=== PATIENT | male | born 1950 | race Caucasian/White ===

== ENCOUNTER 2020-06-27 06:59 | Day surgery (SDC) | payer OTHER, SELFPAY ==
[2020-06-21 10:14] VITALS: BMI 34.0
--- NOTE | 2020-06-24 09:29 | HO.ANESPROP2 ---
Documented by User: Nandini Christy 06/24/20 09:30 HPI - Anesthesia Eval Consult details Narrative: 70yo [facility] Past Medical History Medical History Elevated cholesterol History of BPH HTN (hypertension) Hx of schizophrenia Thyroid disease Surgical History Surgical History H/O colonoscopy Social History Social History Smoking Status: Current every day smoker Packs Per Day: 1 Cigarettes Per Day: 20.0 Smoked in Last 30 Days: Yes Use of substances other than those prescribed or required for medical reasons: No Advance Directives Information Provided: No Meds Allergies Allergy/AdvReac Type Severity Reaction Status Date / Time No Known Allergies Allergy Verified 06/21/20 10:18 Home Medications Medication Instructions Recorded Confirmed Last Taken Type cyanocobalamin (vitamin B-12) 500 mcg PO DAILY 06/21/20 06/21/20 Unknown History [Vitamin B-12] finasteride 5 mg PO DAILY 06/21/20 06/21/20 Unknown History levothyroxine [Synthroid] 88 mcg PO DAILY 06/21/20 06/21/20 06/27/20 02:00 History lisinopril 20 mg PO DAILY 06/21/20 06/21/20 Unknown History losartan 50 mg PO DAILY 06/21/20 06/21/20 Unknown History melatonin 5 mg PO BEDTIME 06/21/20 06/21/20 Unknown History mirtazapine 30 mg PO BEDTIME 06/21/20 06/21/20 Unknown History risperidone 4 mg PO BEDTIME 06/21/20 06/21/20 Unknown History simvastatin 80 mg PO BEDTIME 06/21/20 06/21/20 Unknown History tamsulosin 0.4 mg PO BEDTIME 06/21/20 06/21/20 Unknown History Exam Exam Date and Time: June 24, [id number] Height,Weight and Vital Signs: Height 5 ft 4.5 in Weight 91.172 kg Assessment and Plan Assessment Anesthesia Assessment: Chart Reviewed Documented by User: Vinayak Centeno MD 06/27/20 08:32 [facility] Past Medical History Medical History Elevated cholesterol History of BPH HTN (hypertension) Hx of schizophrenia Thyroid disease Surgical History Surgical History H/O colonoscopy Social History Social History Smoking Status: Current every day smoker Packs Per Day: 1 Cigarettes Per Day: 20.0 Smoked in Last 30 Days: Yes Use of substances other than those prescribed or required for medical reasons: No Advance Directives Information Provided: No Meds Allergies Allergy/AdvReac Type Severity Reaction Status Date / Time No Known Allergies Allergy Verified 06/21/20 10:18 Home Medications Medication Instructions Recorded Confirmed Last Taken Type cyanocobalamin (vitamin B-12) 500 mcg PO DAILY 06/21/20 06/21/20 Unknown History [Vitamin B-12] finasteride 5 mg PO DAILY 06/21/20 06/21/20 Unknown History levothyroxine [Synthroid] 88 mcg PO DAILY 06/21/20 06/21/20 06/27/20 02:00 History lisinopril 20 mg PO DAILY 06/21/20 06/21/20 Unknown History losartan 50 mg PO DAILY 06/21/20 06/21/20 Unknown History melatonin 5 mg PO BEDTIME 06/21/20 06/21/20 Unknown History mirtazapine 30 mg PO BEDTIME 06/21/20 06/21/20 Unknown History risperidone 4 mg PO BEDTIME 06/21/20 06/21/20 Unknown History simvastatin 80 mg PO BEDTIME 06/21/20 06/21/20 Unknown History tamsulosin 0.4 mg PO BEDTIME 06/21/20 06/21/20 Unknown History Exam Airway Mallampati Class: III TM Dist: >3cm Neck ROM: Full Loose/Missing/Broken Teeth: Yes (Front right missing, multiple others missing; none lose per patient) Assessment and Plan Assessment Anesthesia Assessment: Anesthesia Plan Discussed and Chart Reviewed Final Anesthetic Review NPO: Yes ASA Class: III Final Preanesthetic Review: No Changes in Pt Med Stat, Meds/Allgs Chart Reviewed, Consent Obtained/Reviewed and Anes Risks/Benef Reviewed Patient Risk: Intermediate Procedure Risk: Low Anesthetic Plan Anesthetic Plan: MAC: and Other Disposition: Standard PACU
[2020-06-27 07:38] VITALS: BP 148/76; PULSE 77; RESP 16; TEMP 36.9; O2SAT 97
[2020-06-27] MEDS: Sodium Phosphate,Mono-Dibasic 133 ML ENEMA PR (08:07)
[2020-06-27] MEDS: Lactated Ringers 1,000 ML 100 ML IVCONT (08:08)
[2020-06-27 09:41] VITALS: BP 121/70; PULSE 58; RESP 18; TEMP 36.5; O2SAT 98
--- NOTE | 2020-06-27 09:43 | PM.OP ---
Brief Operative Note Date of Service: 06/27/20 Pre-op diagnosis: Screening Post-op diagnosis: other (Colon polyp) Procedure: Colonoscopy to cecum and TI with biopsy and removal of polyp Surgeon: Shravan Isaac Anesthesia: MAC Estimated blood loss (mL): 3.0 Pathology: other (A. Polyp at 20cm) Condition: stable Disposition: PACU
[2020-06-27 09:56] VITALS: BP 142/77; PULSE 65; RESP 16; TEMP 36.5; O2SAT 98
--- NOTE | 2020-06-27 10:02 | OP_ITS ---
SURGEON: Shravan Isaac MD INDICATIONS: The patient presents for evaluation of colorectal cancer screening and family history of colon cancer. Full consent has been obtained from him for this, including risks of bleeding and perforation. PREOPERATIVE DIAGNOSIS: POSTOPERATIVE DIAGNOSIS: PROCEDURE PERFORMED: Colonoscopy to the cecum and terminal ileum with biopsy and removal of polyp. ESTIMATED BLOOD LOSS: COMPLICATIONS: ANESTHESIA: Monitored anesthesia care. ASSISTANTS: SPECIMENS: PREOPERATIVE DIAGNOSES: Colorectal cancer screening and family history of colon cancer. POSTOPERATIVE DIAGNOSES: Colorectal cancer screening and family history of colon cancer, small colon polyp, diverticulosis and internal hemorrhoids. DESCRIPTION OF PROCEDURE: The patient was placed in the left lateral decubitus position. The digital rectal exam revealed no abnormalities. The Olympus video pediatric colonoscope was entered into the rectum and advanced to the cecum with the assistance of abdominal wall pressure. Once in the cecum, I did identify normal-appearing cecal pouch with appendiceal orifice and a normal-appearing ileocecal valve. The terminal ileum was cannulated and appeared normal. The scope was withdrawn back in the colon. The entire cecum and ileocecal valve appeared normal. The scope was slowly withdrawn assessing all mucosal surfaces carefully. Preparation was excellent. At 20 cm, was a flat approximately 3 mm polyp, which was biopsied and completely removed with cold biopsy forceps. I did not visualize any other polyps, colitis, nor angiodysplasia. There was a mild amount of sigmoid diverticulosis. In the rectum, scope was retroflexed visualizing internal hemorrhoids, but no other pathology. The rectal mucosa appeared normal. The scope was straightened out and withdrawn from the patient. He tolerated the procedure well and was returned to the recovery area in stable condition. IMPRESSION: 1. Small colon polyp, status post biopsy and removal. 2. Diverticulosis. 3. Internal hemorrhoids. PLAN: The results of the biopsy will be checked. I would recommend a repeat colonoscopy in 5 years for further screening given the family history of his father having had a colon cancer in his 60s. He will otherwise see me on a p.r.n. basis. MD FELICIANO Villa/SHADY / [phone]
== END 2020-06-27 10:42 | disposition home or self-care (01) ==
PROVIDERS: Visit Provider Internal Medicine
PROC: 0DJD8ZZ Inspection of Lower Intestinal Tract, Via Natural or Artificial Opening Endoscopic (ICD-10-PCS; CPT 45378; principal; 2020-06-27 08:30)
DX: Z12.11 Encounter for screening for malignant neoplasm of colon (principal); Z80.0 Family history of malignant neoplasm of digestive organs; K63.5 Polyp of colon; K57.30 Diverticulosis of large intestine without perforation or abscess without bleeding; K64.8 Other hemorrhoids; I10 Essential (primary) hypertension; E03.9 Hypothyroidism, unspecified; F17.210 Nicotine dependence, cigarettes, uncomplicated; Z79.899 Other long term (current) drug therapy
CPT/HCPCS: 45380; 88305

== ENCOUNTER 2021-11-15 11:53 | Outpatient (REF) | payer MEDICARE, SELFPAY ==
--- NOTE | ~2021-11-15 | XR_ITS ---
EXAMINATION: XR CHEST CLINICAL INFORMATION: COPD, weight loss. COMPARISON: None TECHNIQUE: 2 views of the chest were obtained. FINDINGS: Mild rotation on frontal view. There is mild hyperinflation. Lungs are clear. There is no airspace consolidation or ground-glass opacity or effusion. The costophrenic sulci are well-defined. Heart size normal. Vascularity normal. The hilar and mediastinal contours are normal. No visible acute bony abnormality. XR/XR chest 2V IMPRESSION: Mild hyperinflation. Lungs clear.
[2021-11-15 13:18] LABS: Free T4 (Free Thyroxine) 1.29 ng/dL (0.71-1.85); Prostate Specific Antigen 0.13 ng/mL (<0.05-4.0); Thyroid Stimulating Hormone 0.13 uIU/mL (0.32-4.0)
== END 2021-11-15 11:54 | disposition home or self-care (01) ==
LOC: HO.LAB 11:53
PROVIDERS: PCP Internal Medicine; Visit Provider Internal Medicine
DX: Z12.5 Encounter for screening for malignant neoplasm of prostate (principal); E03.9 Hypothyroidism, unspecified; N40.0 Benign prostatic hyperplasia without lower urinary tract symptoms; E78.00 Pure hypercholesterolemia, unspecified; R63.4 Abnormal weight loss; Z72.0 Tobacco use
CPT/HCPCS: 36415; 71046; 84153; 84439; 84443

== ENCOUNTER 2022-01-03 08:22 | Emergency (ER) | payer MEDICARE, SELFPAY ==
[2022-01-03 09:00] VITALS: BP 144/72; PULSE 80; RESP 13; TEMP 36.2; O2SAT 100; BMI 33.0
--- NOTE | 2022-01-03 09:16 | ED_ITS ---
HPI - Animal Bite General Chief Complaint: Animal Bite Stated Complaint: dog bite Time Seen by Provider: 01/03/22 09:09 Source: patient Mode of arrival: ambulatory Limitations: no limitations History of Present Illness HPI narrative: 71 yo male with hx of HTN, hypothyroidism, cognitive delay, schizophrenia comes in with dog bite R forearm from pit bull across the street that he cannot verify or find the insurance agency owner of. He notes he did clean the wound. Dog bite occured on 01/01. complaint: animal bite Onset (ago): day(s) (2) Animal: dog Description of animal: household pet, immunizations unknown and appeared well Mechanism: bite Location - Extremities: right: forearm Pain description: dull Context: unprovoked Associated symptoms: other (puncture wound) Treatments prior to arrival: wound dressing(s) and antibiotic ointment Related Data Home Medications Medication Instructions Recorded Confirmed cyanocobalamin (vitamin B-12) 500 500 mcg PO DAILY 06/21/20 06/21/20 mcg tablet (Vitamin B-12) finasteride 5 mg tablet 5 mg PO DAILY 06/21/20 06/21/20 levothyroxine 88 mcg tablet 88 mcg PO DAILY 06/21/20 06/21/20 (Synthroid) lisinopril 20 mg tablet 20 mg PO DAILY 06/21/20 06/21/20 losartan 50 mg tablet 50 mg PO DAILY 06/21/20 06/21/20 melatonin 5 mg tablet 5 mg PO BEDTIME 06/21/20 06/21/20 mirtazapine 30 mg tablet 30 mg PO BEDTIME 06/21/20 06/21/20 risperidone 4 mg tablet 4 mg PO BEDTIME 06/21/20 06/21/20 simvastatin 80 mg tablet 80 mg PO BEDTIME 06/21/20 06/21/20 tamsulosin 0.4 mg capsule 0.4 mg PO BEDTIME 06/21/20 06/21/20 Previous Rx's Medication Instructions Recorded doxycycline hyclate 100 mg capsule 100 mg PO BID 7 days #14 caps 01/03/22 metronidazole 500 mg tablet 500 mg PO TID 7 days #21 tabs 01/03/22 Allergies Allergy/AdvReac Type Severity Reaction Status Date / Time No Known Allergies Allergy Verified 06/21/20 10:18 Review of Systems Review of Systems: Constitutional : No Fever, No Chills ENT/Mouth : No sore throat, No Rhinorrhea Eyes: No Eye Pain, No Swelling, No Redness Cardiovascular : No Chest Pain, No SOB Respiratory : No Cough, No Sputum Gastrointestinal : No Nausea, No Vomiting, No Diarrhea, No abdominal Pain Genitourinary : No Dysuria, No Hematuria Musculoskeletal : No joint pain, No Myalgias, No Joint Swelling Skin : pos puncture wound PMFSH Past Medical History Attestation statement: The following information was validated with the patient. Medical History Elevated cholesterol History of BPH HTN (hypertension) Hx of schizophrenia Thyroid disease Surgical History H/O colonoscopy Social History Social History (Updated 01/03/22 @ 09:20 by Becca Chong DO) Patient Tobacco Use Status: Current everyday Tobacco user Cigarette Packs Per Day: 1 Cigarettes Per Day: 20.0 Advance Directives: No Advance Directives Information Provided: No Physical Exam ED Vital Signs: Vital Signs - 24 hr 01/03/22 09:00 Temperature 97.2 F Pulse Rate 80 Respiratory Rate 13 Blood Pressure 144/72 H Pulse Oximetry 100 Oxygen Delivery Method Room Air BMI result Body Mass Index 33.0 Appearance: Alert. Oriented X3. No acute distress. Eyes: Pupils equal, round and reactive to light. ENT: Pharynx normal. Neck: Normal inspection. Neck supple. CVS: Normal heart rate and rhythm. Pulses normal. Respiratory: No respiratory distress. Breath sounds normal. Abdomen: Soft and nontender. Skin: Skin warm and dry. Normal skin color. Normal skin turgor. Extremities: R forearm scabbed over puncture wounds and abrasions to R dorsum and ventral forearm superficial in nature. Mild erythema near superior abrasion to ventral forearm no swelling or fluctuance no warmth Neuro: Oriented X 3. No motor deficit. No sensory deficit. Course Course Course Narrative: immunoglobulin injection done by BRISA THOMAS - Animal Bite MDM Narrative Medical decision making narrative: 71 yo male with hx of HTN, hypothyroidism, cognitive delay, schizophrenia here with dog bite to R forearm - at this time will need rabies immunoglobulin and vaccine. Refer to short stay. Will start on doxy and flagyl for dog bite given shortage of augmentin. Will send home with precautions. Discharge Plan Discharge Clinical Impression: Dog bite Patient Disposition: Home, Self-Care Instructions: Rabies Vaccine (By injection), Rabies Immune Globulin (By injection), Animal Bite (ED) Additional Instructions: return to ED for any worsening symptoms or concerns please go to short stay surgery for your rabies vaccine injections on day 3, 7, 14. Prescriptions: New doxycycline hyclate 100 mg capsule 100 mg PO BID 7 Days Qty: 14 0RF metronidazole 500 mg tablet 500 mg PO TID 7 Days Qty: 21 0RF No Action losartan 50 mg Tablet 50 mg PO DAILY risperidone 4 mg Tablet 4 mg PO BEDTIME lisinopril 20 mg Tablet 20 mg PO DAILY simvastatin 80 mg Tablet 80 mg PO BEDTIME levothyroxine [Synthroid] 88 mcg Tablet 88 mcg PO DAILY cyanocobalamin (vitamin B-12) [Vitamin B-12] 500 mcg Tablet 500 mcg PO DAILY tamsulosin 0.4 mg Capsule 0.4 mg PO BEDTIME mirtazapine 30 mg Tablet 30 mg PO BEDTIME finasteride 5 mg Tablet 5 mg PO DAILY melatonin 5 mg Tablet 5 mg PO BEDTIME
[2022-01-03] MEDS: metroNIDAZOLE 500 MG TABLET PO (09:33)
[2022-01-03] MEDS: Rabies Vaccine (PCEC)/PF 1 ML VIAL IM (09:35)
[2022-01-03] MEDS: Rabies Immune Globulin/PF 900 UNIT/3 ML VIAL 1744 UNIT IM (09:45)
== END 2022-01-03 10:12 | disposition home or self-care (01) ==
PROVIDERS: Emergency Provider Emergency Medicine; PCP Internal Medicine
DX: S51.851A Open bite of right forearm, initial encounter (principal); Z20.3 Contact with and (suspected) exposure to rabies; Z29.14 Encounter for prophylactic rabies immune globulin; W54.0XXA Bitten by dog, initial encounter; Y93.89 Activity, other specified; Y92.480 Sidewalk as the place of occurrence of the external cause; Y99.9 Unspecified external cause status
CPT/HCPCS: 90375; 90471; 90675; 96372; 99282; 99284

== ENCOUNTER 2022-01-06 08:47 | Outpatient (REF) | payer MEDICARE, SELFPAY | END 2022-01-06 08:48 | disposition home or self-care (01) | LOC: HO.MDS 08:47 | PROVIDERS: Visit Provider Emergency Medicine | DX: Z29.14 Encounter for prophylactic rabies immune globulin (principal); S51.851D Open bite of right forearm, subsequent encounter; S61.551D Open bite of right wrist, subsequent encounter; W54.0XXD Bitten by dog, subsequent encounter; Z20.3 Contact with and (suspected) exposure to rabies | CPT/HCPCS: 90471; 90675 ==

== ENCOUNTER 2022-01-10 08:34 | Outpatient (REF) | payer MEDICARE, SELFPAY | END 2022-01-10 08:35 | disposition home or self-care (01) | LOC: HO.MDS 08:34 | PROVIDERS: Visit Provider Emergency Medicine | DX: Z29.14 Encounter for prophylactic rabies immune globulin (principal); S51.851D Open bite of right forearm, subsequent encounter; W54.0XXD Bitten by dog, subsequent encounter; Z20.3 Contact with and (suspected) exposure to rabies | CPT/HCPCS: 90471; 90675 ==

== ENCOUNTER 2022-01-17 07:45 | Outpatient (REF) | payer MEDICARE, SELFPAY | END 2022-01-17 07:46 | disposition home or self-care (01) | LOC: HO.MDS 07:45 | PROVIDERS: Visit Provider Emergency Medicine | DX: Z29.14 Encounter for prophylactic rabies immune globulin (principal); S51.851D Open bite of right forearm, subsequent encounter; W54.0XXD Bitten by dog, subsequent encounter; Z20.3 Contact with and (suspected) exposure to rabies | CPT/HCPCS: 90471; 90675 ==

== ENCOUNTER 2023-02-13 12:09 | Outpatient (REF) | payer MEDICARE, MEDICAID, SELFPAY ==
[2023-02-13 12:26] LABS: MANUAL DIFF FLAG NO
[2023-02-13 13:11] LABS: Basophils Percent Auto 0.5 % (0-2); Eosinophils Absolute Auto 0.1 X10*3/uL (0.0-0.4); Eosinophils Percent Auto 1.9 % (0-4); Hematocrit 41.2 % (42.0-52.0); Hemoglobin 13.4 g/dl (14.0-18.0); Imm Gran Abs Auto 0.01 X10*3/uL (0.00-0.03); Imm Gran Pct Auto 0.2 % (0.0-0.4); Lymphocytes Absolute Auto 1.3 X10*3/uL (1.2-4.9); Lymphocytes Percent Auto 20.6 % (20-40); Mean Corpuscular HGB Conc 32.5 g/dl (31.0-36.0); Mean Corpuscular Hemoglobin 30.9 pg (27.0-33.0); Mean Corpuscular Volume 95.2 fL (80.0-98.0); Mean Platelet Volume 12.9 fL (9.4-12.4); Monocytes Absolute Auto 0.3 X10*3/uL (0.1-1.2); Monocytes Percent Auto 4.2 % (2-11); Neutrophils Absolute Auto 4.7 x10*3/uL (2.0-8.3); Neutrophils Percent Auto 72.6 % (45-73); Platelet Count 103 X10*3/uL (160-400); Red Blood Count 4.33 X10*6/uL (4.60-5.80); Red Cell Distribution Width 14.2 % (11.0-16.0); White Blood Count 6.5 X10*3/uL (4.8-10.8)
[2023-02-13 13:26] LABS: Alanine Aminotransferase 15 U/L (0-40); Albumin Level 4.2 g/dL (3.5-5.0); Alkaline Phosphatase 85 U/L (39-117); Anion Gap 12 (12-20); Aspartate Amino Transferase 20 U/L (5-37); Bilirubin Total 0.4 mg/dL (0.0-1.0); Blood Urea Nitrogen 19 mg/dL (9-16); Calcium 9.4 mg/dL (8.4-10.2); Carbon Dioxide 24 mmol/L (22-29); Chloride 110 mmol/L (96-108); Cholesterol 104 mg/dL (<200); Estimated Glomerular Filt Rate > 60; Glucose Fasting 96 mg/dL (60-99); HDL Cholesterol 35 mg/dL (>40); LDL Cholesterol Calculated 61 mg/dL (<100); Potassium 4.1 mmol/L (3.3-5.1); Sodium 142 mmol/L (135-145); Total Protein 7.3 g/dL (6.5-8.0); Triglycerides 43 mg/dL (<150)
[2023-02-13 13:37] LABS: Free T4 (Free Thyroxine) 1.27 ng/dL (0.71-1.85); Thyroid Stimulating Hormone 0.12 uIU/mL (0.32-4.0)
[2023-02-13 13:38] LABS: Prostate Specific Antigen Scr 0.11 ng/mL (<0.05-4.0)
== END 2023-02-13 12:10 | disposition home or self-care (01) ==
LOC: HO.LAB 12:09
PROVIDERS: PCP Internal Medicine; Visit Provider Internal Medicine
DX: I10 Essential (primary) hypertension (principal); E78.00 Pure hypercholesterolemia, unspecified; E03.9 Hypothyroidism, unspecified; J44.9 Chronic obstructive pulmonary disease, unspecified; N40.0 Benign prostatic hyperplasia without lower urinary tract symptoms; Z12.5 Encounter for screening for malignant neoplasm of prostate
CPT/HCPCS: 36415; 80053; 80061; 84153; 84439; 84443; 85025

== ENCOUNTER 2023-06-18 14:03 | Outpatient (REF) | payer MEDICARE, MEDICAID, SELFPAY ==
--- NOTE | ~2023-06-18 | XR_ITS ---
EXAMINATION: XR CHEST 2 VIEWS CLINICAL INFORMATION: Hypertension and COPD. COMPARISON: Chest radiographs dated 11/15/2021. TECHNIQUE: Frontal and lateral views of the chest were obtained. FINDINGS: The heart, great vessels, pulmonary vasculature and mediastinum are normal. The lungs show no focal infiltrate, effusion or pneumothorax. There is no acute osseous abnormality. There is a moderate cervicothoracic levoscoliosis. XR/XR chest 2V IMPRESSION: No active cardiopulmonary disease.
[2023-06-18 16:13] LABS: Basophils Percent Auto 0.4 % (0-2); Eosinophils Absolute Auto 0.2 X10*3/uL (0.0-0.4); Eosinophils Percent Auto 3.3 % (0-4); Hematocrit 43.7 % (42.0-52.0); Imm Gran Abs Auto 0.02 X10*3/uL (0.00-0.03); Imm Gran Pct Auto 0.3 % (0.0-0.4); Lymphocytes Absolute Auto 2.2 X10*3/uL (1.2-4.9); Lymphocytes Percent Auto 32.2 % (20-40); MANUAL DIFF FLAG SCAN; Mean Corpuscular Hemoglobin 30.4 pg (27.0-33.0); Mean Corpuscular Volume 94.8 fL (80.0-98.0); Mean Platelet Volume 12.5 fL (9.4-12.4); Monocytes Absolute Auto 0.3 X10*3/uL (0.1-1.2); Monocytes Percent Auto 5.1 % (2-11); Neutrophils Absolute Auto 3.9 x10*3/uL (2.0-8.3); Neutrophils Percent Auto 58.7 % (45-73); PLT CLUMP 1; Red Blood Count 4.61 X10*6/uL (4.60-5.80); Red Cell Distribution Width 13.6 % (11.0-16.0); SCAN SMEAR FLAG 1
[2023-06-18 16:43] LABS: White Blood Count 6.7 X10*3/uL (4.8-10.8)
[2023-06-18 16:44] LABS: Platelet Count 94 X10*3/uL (160-400); SLIDE REVIEW VERIFIED
[2023-06-18 17:10] LABS: Anion Gap 11 (12-20); Blood Urea Nitrogen 15 mg/dL (9-16); Calcium 9.6 mg/dL (8.4-10.2); Carbon Dioxide 25 mmol/L (22-29); Chloride 110 mmol/L (96-108); Estimated Glomerular Filt Rate > 60; Glucose Random 93 mg/dL (60-115); Potassium 3.9 mmol/L (3.3-5.1); Sodium 142 mmol/L (135-145)
[2023-06-18 17:22] LABS: Free T4 (Free Thyroxine) 1.29 ng/dL (0.71-1.85); Thyroid Stimulating Hormone 0.13 uIU/mL (0.32-4.0)
== END 2023-06-18 14:04 | disposition home or self-care (01) ==
LOC: HO.XRAY 14:03
PROVIDERS: PCP Internal Medicine; Visit Provider Internal Medicine
DX: I10 Essential (primary) hypertension (principal); J44.9 Chronic obstructive pulmonary disease, unspecified; E03.9 Hypothyroidism, unspecified; R05.9 Cough, unspecified; D64.9 Anemia, unspecified
CPT/HCPCS: 36415; 71046; 80048; 84439; 84443; 85025

== ENCOUNTER 2023-09-18 14:24 | Outpatient (REF) | payer MEDICARE, MEDICAID, SELFPAY ==
[2023-09-18 16:20] LABS: Free T4 (Free Thyroxine) 1.25 ng/dL (0.71-1.85); Thyroid Stimulating Hormone 0.15 uIU/mL (0.32-4.0)
== END 2023-09-18 14:25 | disposition home or self-care (01) ==
LOC: HO.LAB 14:24
PROVIDERS: PCP Internal Medicine; Visit Provider Internal Medicine
DX: E03.9 Hypothyroidism, unspecified (principal); I10 Essential (primary) hypertension
CPT/HCPCS: 36415; 84439; 84443

== ENCOUNTER 2023-12-26 14:39 | Outpatient (REF) | payer MEDICARE, MEDICAID, SELFPAY ==
--- NOTE | ~2023-12-26 | XR_ITS ---
EXAMINATION: XR CHEST CLINICAL INFORMATION: Rhonchi, wheeze COMPARISON: 06/18/2023 TECHNIQUE: 2 views of the chest were obtained. FINDINGS: There is mild pulmonary hyperinflation. No focal airspace disease is seen. No pleural effusion or pneumothorax. The cardiomediastinal contours are unchanged. Structures of the chest wall are stable. XR/XR chest 2V IMPRESSION: Mild hyperinflation which may be in keeping with an obstructive physiology. No acute airspace disease. Electronically signed by: Darrick Riojas MD 12/26/2023 04:05 PM EDT
[2023-12-26 14:56] LABS: MANUAL DIFF FLAG NO
[2023-12-26 15:36] LABS: Basophils Percent Auto 0.6 % (0-2); Eosinophils Absolute Auto 0.3 X10*3/uL (0.0-0.4); Hematocrit 40.9 % (42.0-52.0); Hemoglobin 13.4 g/dl (14.0-18.0); Imm Gran Abs Auto 0.01 X10*3/uL (0.00-0.03); Imm Gran Pct Auto 0.2 % (0.0-0.4); Lymphocytes Absolute Auto 2.1 X10*3/uL (1.2-4.9); Lymphocytes Percent Auto 34.7 % (20-40); Mean Corpuscular HGB Conc 32.8 g/dl (31.0-36.0); Mean Corpuscular Hemoglobin 31.5 pg (27.0-33.0); Mean Corpuscular Volume 96.2 fL (80.0-98.0); Monocytes Absolute Auto 0.4 X10*3/uL (0.1-1.2); Monocytes Percent Auto 6.5 % (2-11); Neutrophils Absolute Auto 3.3 x10*3/uL (2.0-8.3); Platelet Count 116 X10*3/uL (160-400); Red Blood Count 4.25 X10*6/uL (4.60-5.80); Red Cell Distribution Width 13.9 % (11.0-16.0); White Blood Count 6.2 X10*3/uL (4.8-10.8)
[2023-12-26 15:44] LABS: Estimated Average Glucose 120 mg/dL; Hemoglobin A1c % 5.8 % (<6.0)
[2023-12-26 16:02] LABS: B Type Natriuretic Peptide 18 pg/mL (<100)
[2023-12-26 16:10] LABS: Anion Gap 11 (12-20); Blood Urea Nitrogen 17 mg/dL (9-16); Calcium 9.4 mg/dL (8.4-10.2); Carbon Dioxide 24 mmol/L (22-29); Chloride 110 mmol/L (96-108); Estimated Glomerular Filt Rate 60; Glucose Random 83 mg/dL (60-115); Sodium 141 mmol/L (135-145)
[2023-12-26 16:31] LABS: Free T4 (Free Thyroxine) 1.08 ng/dL (0.71-1.85); Thyroid Stimulating Hormone 1.34 uIU/mL (0.32-4.0)
== END 2023-12-26 14:40 | disposition home or self-care (01) ==
LOC: HO.LAB 14:39
PROVIDERS: PCP Internal Medicine; Visit Provider Internal Medicine
DX: E03.9 Hypothyroidism, unspecified (principal); R73.03 Prediabetes; D69.6 Thrombocytopenia, unspecified; R06.2 Wheezing
CPT/HCPCS: 36415; 71046; 80048; 83036; 83880; 84439; 84443; 85025

== ENCOUNTER 2024-06-25 13:20 | Outpatient (REF) | payer MEDICARE, MEDICAID, SELFPAY ==
[2024-06-25 15:18] LABS: Estimated Average Glucose 120 mg/dL; Hemoglobin A1c % 5.8 % (<6.0)
[2024-06-25 15:51] LABS: TSH reflex Free T4 1.41 uIU/mL (0.32-4.0)
--- OUTSIDE RECORDS SUMMARY | 2024-06-25 18:27 | XMS_ITS | Encounter Summary ---
Author Name [facility] [place] Organization [facility] of [facility] [place] ([place] Address [address] [place] [address] Care Team Providers Care Acid Bleacher Name Role Phone AYDEN CAMPBELL Primary Care Provider Unavail able Insurance Providers: All historical and current Section Date Range: From patient's date of to the date document was created. This section includes the names of all active insurance providers for the patient. Insurance Provider Type of Coverage Plan Name Start of Policy Coverage End of Policy Coverage Group Number Member ID Insurance Provider's Telephone Number Policy Ellsworth's Name Patient's Relationship to Policy Ellsworth MEDICARE (WNR) MEDICARE (M) PART A Oct 13, 1986 PART A [id number] SANDRA,NIDHI XAVIER PATIENT MEDICARE (WNR) MEDICARE (M) PART B Oct 13, 1986 PART B [id number] [phone] HOHOL,NIDHI XAVIER PATIENT MEDICARE (WNR) MEDICARE (M) PART A Oct 13, 1986 PART A [id number] HOEILEEN,NIDHI XAVIER PATIENT MEDICARE (WNR) MEDICARE (M) PART B Oct 13, 1986 PART B [id number] HOHOL,NIDHI XAVIER PATIENT Selected Encounter This section includes the information on record at [place] for the Encounter. Date/Time Encounter Type Encounter Description Reason Provider Source May 15, 2024 11:30 AM OFFICE O/P EST HI 40 MIN PRIMARY CARE/MEDICINE ICD-10-CM J43.9 Emphysema, unspecified ANSLEY BAUTISTA Encounter Template Text not used by [place] Assessments - Encounter Diagnoses This section includes the primary and secondary diagnoses documented for the Encounter. Date/Time Primary/Secondary Diagnosis Diagnosis Name Provider Source Jun 18, 2024 06:28 PM PRIMARY Emphysema, unspecified ANSLEY BAUTISTA Patricio [facility] Jun 18, 2024 06:28 PM SECONDARY Benign prostatic hyperplasia without lower urinry tract symp ANSLEY BAUTISTA Patricio [place] Jun 18, 2024 06:28 PM SECONDARY Essential (primary) hypertension LILYANSLEY Patricio [place] Jun 18, 2024 06:28 PM SECONDARY Hyperlipidemia, unspecified LILYANSLEY Patricio [place] Jun 18, 2024 06:28 PM SECONDARY Hypothyroidism, unspecified LILYANSLEY Patricio [place] Jun 18, 2024 06:28 PM SECONDARY Obesity, unspecified LILYANSLEY Patricio [place] Jun 18, 2024 06:28 PM SECONDARY Personal history of nicotine dependence LILYANSLEY Patricio [place] Jun 18, 2024 06:28 PM SECONDARY Prediabetes LILYANSLEY Patricio [place] Plan of Treatment: Future Appointments (+ 6 months) and Future Tests (+/- 45 days) The Plan of Treatment section includes future care activities for the [facility] [place] [facility] This section includes future appointments and future orders which are active, pending or scheduled. Future Appointments This section includes appointments that were scheduled to occur 6 months from the date of the Encounter, up to a maximum of 20 appointments. The data comes from all [place] treatment facilities. Appointment Date/Time Appointment Type Appointme nt Facility Name May 22, 2024 09:00 AM AMBULATORY - PSYCHIATRY [facility] May 29, 2024 09:30 AM AMBULATORY - PSYCHIATRY [facility] Jun 19, 2024 09:00 AM AMBULATORY PSYCHIATRY [facility] Jul 17, 2024 09:00 AM AMBULATORY PSYCHIATRY [facility] Sep 29, 2024 09:30 AM AMBULATORY - PSYCHIATRY [facility] Nov 11, 2024 10:30 AM AMBULATORY - MEDICINE [facility] Active, Pending, and Scheduled Orders This section includes a listing of several types of active, pending, and scheduled orders, including clinic medications orders, diagnostic test orders, procedure orders and consult orders; where the start date of the order is 45 days before the date of the Encounter or 45 days after the date of theEncounter. The data comes from all [place] treatment facilities. Test Date/Time Test Type Test Details Facility Name May 06, 2024 12:00 AM Laboratory - Chemistry Order URINALYSIS URINE [facility] May 06, 2024 12:00 AM Laboratory - Chemistry Order MICROALBUMIN CREATININE RATIO PANEL URINE (RANDOM) [facility] Lab Results: +/- 30 days of the encounter This section includes the Chemistry and Hematology Lab Results on record with [place] for the patient. Radiology Reports and Pathology Reports are provided separately, in subsequent sections. Lab Results This section contains the Chemistry/Hematology Results that were resulted 30 days before or 30 daysafter the date of the Encounter. Date/Time Source Result Type Result - Unit Interpretation Reference Range Comment May 08, 2024 08:56 AM [facility] HEMOGLOBIN A1C PANEL Specimen Type: BLOOD Comment: Values obtained from A1C measurements can vary. For atypical A1C assays, a reported value of 7.0 could actually be between 6.72 and 7.28 if measured by a reference method. A reported value of 9.0 could actually be between 8.73 and 9.27. Ref: http://www.ngs p.org/CAPdata. asp Ordering Provider: ANSLEY BAUTISTA Report Released Date/Time: May 06, 2024 12:32 PM Reporting Lab: [facility] [address] [facility] [address] Performing Lab: [address] [address] HEMOGLOBIN A1C 6.0 H 4.0-5.6 May 08, 2024 08:56 AM [facility] TSH Specimen Type: SERUM No comment entered. Ordering Provider: ANSLEY BAUTISTA Report Released Date/Time: May 06, 2024 12:32 PM Reporting Lab: [facility] [address] [facility] [address] Performing Lab: [address] [address] TSH 2.55 u[IU]/mL 0.35-5.00 May 08, 2024 08:56 AM [facility] LIPID PANEL FASTING Specimen Type: SERUM No comment entered. Ordering Provider: ANSLEY BAUTISTA Report Released Date/Time: May 06, 2024 12:32 PM Reporting Lab: [facility] [address] [facility] [address] Performing Lab: [address] [address] CHOLESTEROL 133 mg/dL TRIGLYCERIDE 79 mg/dL 0-150 LDL calculated 73 mg/dL 0-129 CHOL/HDL 3.0 HDL CHOLESTEROL 44 mg/dL 40-60 May 08, 2024 08:56 AM [facility] LIVER FUNCTION Specimen Type: SERUM No comment entered. Ordering Provider: ANSLEY BAUTISTA Report Released Date/Time: May 06, 2024 12:32 PM Reporting Lab: [address] [address] Performing Lab: [address] [address] PROTEIN,TOTAL 7.5 g/dL 6.0-8.3 ALBUMIN 4.1 g/dL 3.5-5.0 ALKALINE PHOSPHATASE 76 U/L 40-150 AST 18 U/L 5-34 ALT 21 U/L BILIRUBIN, TOTAL 0.4 mg/dL 0.2-1.2 May 08, 2024 08:56 AM [facility] BASIC METABOLIC PANEL (fasting) Specimen Type: SERUM No comment entered. Ordering Provider: ANSLEY BAUTISTA Report Released Date/Time: May 06, 2024 12:32 PM Reporting Lab: [address] [address] Performing Lab: [address] [address] UREA NITROGEN 21 mg/dL 7-25 GLUCOSE 99 mg/dL 65-100 SODIUM 142 mmol/L 135-145 POTASSIUM 4.2 mmol/L 3.5-5.0 CHLORIDE 110 mmol/L 100-110 CO2 25 meq/L 20-30 CREATININE, Serum 0.92 mg/dL 0.50-1.40 eGFR(CKD-EPI 2020) 87 mL/min >60 May 08, 2024 08:56 AM [facility] CBC AND DIFF (AUTO) Specimen Type: BLOOD No comment entered. Ordering Provider: ANSLEY BAUTISTA Report Released Date/Time: May 06, 2024 12:32 PM Reporting Lab: [facility] [address] [facility] [address] Performing Lab: [facility] [address] [facility] [address] WBC 6.38 10*3/uL 4.50-11.00 RBC 4.67 10*6/uL 4.23-5.66 HGB 14.7 g/dL 12.8-17 HCT 45.2 39.2-50.4 MCV 96.8 fL 82-99 MCHC 32.5 g/dL 30.8-35.1 PLT 105 10*3/uL L 140-360 RDW-CV 13.5 12.0-16.0 MONO, ABS 0.37 10*3/uL 0.30-1.10 MCH 31.5 pg 26.2-32.6 NEUT % 67.1 43.7-75.8 LYMPH % 23.0 14.0-42.3 MONO % 5.8 5.1-13.7 EOS % 3.3 0.4-6.8 BASO % 0.8 0.1-2.0 NEUT, ABS 4.28 10*3/uL 2.20-7.60 LYMPH, ABS 1.47 10*3/uL 1.00-3.20 EOS, ABS 0.21 10*3/uL 0.03-0.44 BASO, ABS 0.05 10*3/uL 0.01-0.13 IMMATURE GRAN % 0.0 0.0-0.7 IMMATURE GRAN, ABS 0.00 10*3/uL 0.00-0.06 NRBC % 0.0 0.0-0.0 NRBC, ABS 0.00 10*3/uL 0.00-0.00 Vital Signs: All taken on the encounter date This section contains inpatient and outpatient Vital Signs collected on the date of the Encounter. Date/Time Temperature Pulse Blood Pressure Respiratory Rate SP02 Pain Height Weight Body Mass Index Source May 15, 2024 11:16 AM 97.8 73 144/84 19 97 64 201 35 [facility] IE Social History: Smoking Status (Most current) and Tobacco Use (All prior to encounter date) This section includes the most current, and the historical, smoking and tobacco- related health factors from the [place] facility where the Encounter took place. Current Smoking Status This section includes the most current smoking, or tobacco-related health factor, from the [place] facility where the Encounter took place. Date/Time Current Smoking Status Comment Facil ity May 15, 2024 11:30 AM VA-TOBACCO SCREEN FOLLOW-UP [facility] Tobacco Use History This section includes a history of the smoking, or tobacco-related health factors, that were collected on or before the date of the Encounter. The data comes from the [place] facility where the Encounter took place. 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 [place] May 10, 2023 10:00 AM VA-TOBACCO USE MED NO [place] May 10, 2023 10:00 AM VA-TOBACCO USE WI 30 MIN OF WAKEUP [place] May 10, 2023 10:00 AM VA-TOBACCO USER EVERY DAY [facility] Mar 02, 2022 10:30 AM VA-TOBACCO USE 30 YEARS OR MORE [facility] Mar 02, 2022 10:30 AM VA-TOBACCO USE ADVICE [place] Mar 02, 2022 10:30 AM VA-TOBACCO USE 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 [facility] Mar 02, 2022 10:30 AM VA-TOBACCO USE MED NO [place] Mar 02, 2022 10:30 AM VA-TOBACCO USE WI 30 MIN OF WAKEUP [facility] Mar 02, 2022 10:30 AM VA-TOBACCO USER EVERY DAY [facility] Feb 19, 2020 11:00 AM VA-TOBACCO USE 30 YEARS OR MORE [place] Feb 19, 2020 11:00 AM VA-TOBACCO USE ADVICE [place] Feb 19, 2020 11:00 AM VA-TOBACCO USE 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 [facility] 06, 2020 11:00 AM VA-TOBACCO USE MED NO [place] Feb 19, 2020 11:00 AM VA-TOBACCO USE WI 30 MIN OF WAKEUP [place] Feb 19, 2020 11:00 AM VA-TOBACCO USER EVERY DAY [facility] Sep 17, 2018 10:32 AM VA-TOBACCO USE 30 YEARS OR MORE [place] Sep 17, 2018 10:32 AM VA-TOBACCO USE ADVICE [place] Sep 17, 2018 10:32 AM VA-TOBACCO USE 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 [place] Sep 17, 2018 10:32 AM VA-TOBACCO USE MED NO [place] Sep 17, 2018 10:32 AM VA-TOBACCO USE WI 30 MIN OF LYONSUP [facility] Sep 17, 2018 10:32 AM VA-TOBACCO USER EVERY DAY [facility] Nov 11, 2017 09:34 AM VA-TOBACCO USE 30 YEARS OR MORE [place] Nov 11, 2017 09:34 AM VA-TOBACCO USE ADVICE [place] Nov 11, 2017 09:34 AM VA-TOBACCO USE 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 [place] Nov 11, 2017 09:34 AM VA-TOBACCO USE MED NO [place] Nov 11, 2017 09:34 AM VA-TOBACCO USE WI 30 MIN OF LYONSUP [facility] Nov 11, 2017 09:34 AM VA-TOBACCO USER EVERY DAY [facility] May 31, 2017 09:39 AM V1-PT NOT INTEREST ED IN QUIT TOBACCO USE [facility] Apr 11, 2017 10:01 AM CURRENT SMOKER 1 pack per day [facility] Oct 09, 2016 09:59 AM CURRENT SMOKER LALITO [facility] Oct 09, 2016 09:59 AM V1-PT DECLINES REF TO TOBACCO CESS PRGM [facility] Oct 09, 2016 09:59 AM V1-PT DECLINES TOB ACCO CESSATION MEDS [facility] Oct 09, 2016 09:59 AM V1-PT THINKING ABO UT QUIT TOBACCO USE [place] Apr 03, 2016 10:14 AM CURRENT SMOKER BRIDGERI [facility] Apr 03, 2016 10:14 AM V1-PT NOT INTEREST ED IN QUIT TOBACCO USE [facility] Nov 16, 2015 09:56 AM CURRENT SMOKER alot [facility] September 07, 2015 10:17 AM V1-PT NOT INTEREST ED IN QUIT TOBACCO USE [facility] Mar 23, 2015 10:12 AM V1-PT NOT INTEREST ED IN QUIT TOBACCO USE [facility] Oct 06, 2014 11:34 AM V1-PT NOT INTEREST ED IN QUIT TOBACCO USE [facility] Apr 14, 2014 10:36 AM CURRENT SMOKER 1 pack a day [facility] Apr 14, 2014 10:36 AM V1-PT DECLINES REF TO TOBACCO CESS [facility] Apr 14, 2014 10:36 AM V1-PT DECLINES TOB ACCO CESSATION [facility] Apr 14, 2014 10:36 AM V1-PT NOT INTEREST ED IN QUIT TOBACCO USE [place] Sep 30, 2013 10:04 AM V1-PT DECLINES REF TO TOBACCO CESS [facility] Sep 30, 2013 10:04 AM V1-PT DECLINES TOB ACCO CESSATION [facility] Sep 30, 2013 10:04 AM V1-PT NOT INTEREST ED IN QUIT TOBACCO USE [place] Apr 16, 2013 11:44 AM CURRENT SMOKER LALITO [facility] Apr 16, 2013 11:44 AM V1-PT NOT INTEREST ED IN QUIT TOBACCO USE [place] Sep 24, 2012 10:18 AM V1-PT DECLINES REF TO TOBACCO CESS [facility] Sep 24, 2012 10:18 AM V1-PT DECLINES TOB ACCO CESSATION [facility] Sep 24, 2012 10:18 AM V1-PT NOT INTEREST ED IN QUIT TOBACCO USE [place] May 07, 2012 10:03 AM CURRENT SMOKER LALITO [facility] Jan 09, 2012 11:24 AM V1-PT DECLINES REF TO TOBACCO CESS [facility] Jan 09, 2012 11:24 AM V1-PT DECLINES TOB ACCO CESSATION [facility] Jan 09, 2012 11:24 AM V1-PT NOT INTEREST ED IN QUIT TOBACCO USE [place] Jul 26, 2011 12:24 PM V1-PT DECLINES REF TO TOBACCO CESS [facility] Jul 26, 2011 12:24 PM V1-PT DECLINES TOB ACCO CESSATION [facility] Jul 26, 2011 12:24 PM V1-PT NOT INTEREST ED IN QUIT TOBACCO USE [place] May 02, 2011 12:09 PM CURRENT SMOKER smokes 1 ppd [place] Jan 31, 2011 10:20 AM V1-PT DECLINES REF TO TOBACCO CESS [facility] Jan 31, 2011 10:20 AM V1-PT DECLINES TOB ACCO CESSATION [facility] Jan 31, 2011 10:20 AM V1-PT NOT INTEREST ED IN QUIT TOBACCO USE [place] August 16, 2010 10:40 AM V1-PT DECLINES REF TO TOBACCO CESS [facility] August 16, 2010 10:40 AM V1-PT DECLINES TOB ACCO CESSATION [facility] August 16, 2010 10:40 AM V1-PT NOT INTEREST ED IN QUIT TOBACCO USE [place] Jun 21, 2010 12:53 PM CURRENT SMOKER smokes 1 ppd [facility] Mar 03, 2010 10:14 AM V1-PT DECLINES REF TO TOBACCO CESS [facility] Mar 03, 2010 10:14 AM V1-PT DECLINES TOB ACCO CESSATION [facility] Mar 03, 2010 10:14 AM V1-PT NOT INTEREST ED IN QUIT TOBACCO USE [place] Jul 19, 2009 04:04 PM V1-PT DECLINES REF TO TOBACCO CESS [facility] Jul 19, 2009 04:04 PM V1-PT DECLINES TOB ACCO CESSATION [facility] Jul 19, 2009 04:04 PM V1-PT NOT INTEREST ED IN QUIT TOBACCO USE [facility] Jul 05, 2009 11:45 AM CURRENT SMOKER 1 ppd [place] Feb 15, 2009 10:25 AM V1-PT DECLINES REF TO TOBACCO CESS [facility] Feb 15, 2009 10:25 AM V1-PT DECLINES TOB ACCO CESSATION [facility] Feb 15, 2009 10:25 AM V1-PT NOT INTEREST ED IN QUIT TOBACCO USE [place] September 09, 2008 09:57 AM V1-PT DECLINES REF TO TOBACCO CESS [facility] September 09, 2008 09:57 AM V1-PT DECLINES TOB ACCO CESSATION [facility] September 09, 2008 09:57 AM V1-PT NOT INTEREST ED IN QUIT TOBACCO USE [place] September 09, 2008 09:57 AM V1-PT THINKING ABO UT QUIT TOBACCO USE [place] Jan 28, 2008 11:18 AM V1-PT DECLINES REF TO TOBACCO CESS [facility] Jan 28, 2008 11:18 AM V1-PT DECLINES TOB ACCO CESSATION [facility] Jan 28, 2008 11:18 AM V1-PT THINKING ABO UT QUIT TOBACCO USE [place] September 09, 2007 10:11 AM V1-PT DECLINES REF TO TOBACCO CESS [facility] September 09, 2007 10:11 AM V1-PT DECLINES TOB ACCO CESSATION [facility] September 09, 2007 10:11 AM V1-PT NOT INTEREST ED IN QUIT TOBACCO USE [place] Jul 29, 2007 02:00 PM V1-PT DECLINES REF TO TOBACCO CESS [facility] Jul 29, 2007 02:00 PM V1-PT DECLINES TOB ACCO CESSATION [facility] Jul 29, 2007 02:00 PM V1-PT THINKING ABO UT QUIT TOBACCO USE [place] Mar 05, 2007 11:18 AM V1-PT DECLINES REF TO TOBACCO CESS [facility] Mar 05, 2007 11:18 AM V1-PT DECLINES TOB ACCO CESSATION [facility] Mar 05, 2007 11:18 AM V1-PT NOT INTEREST ED IN QUIT TOBACCO USE [facility] Jul 09, 2006 09:52 AM CURRENT SMOKER LALITO ERVIN Dec 26, 2004 09:31 AM CURRENT SMOKER He says he doesn't inhale. Advised to quit. [facility] Oct 15, 2003 01:15 PM CURRENT SMOKER 1ppd x 30yrs [facility] Dec 02, 2002 10:38 AM LIFETIME NON-TOBACCO USER [facility] Oct 21, 2002 10:22 AM LIFETIME NON-TOBACCO USER [facility] Jul 01, 2002 10:42 AM CURRENT SMOKER LALITO ERVIN Jun 03, 2002 10:47 AM CURRENT SMOKER 1 pack daily..smoking 35 years [place] May 27, 2002 10:29 AM CURRENT SMOKER one pack [place] Dec 13, 2000 11:46 AM CURRENT SMOKER 1 pack a day [facility] Advance Directives: All historical and current Section Date Range: From patient's date of to the date document was created. This section includes ALL of a patient's completed or amended [place] Advance and Rescinded Directives. The entries below indicate that a directive exists for the patient, but an actual copy is not included with this document. The data comes from all [place] facilities. Date Advance Directives Provider Source Oct 24, 2021 ADVANCE DIRECTIVE [facility] Encounter Notes: All associated encounter notes This section contains the clinical notes associated to the Encounter. Date/Time Encounter Note(s) Provider Source May 15, 2024 11:09 AM PRIMARY CARE NURSE PRACTITIONER OUTPATIENT NOTE: LOCAL TITLE: NURSE PRACTITIONER OUTPATIENT NOTE STANDARD TITLE: PRIMARY CARE NURSE PRACTITIONER OUTPATIENT NOTE DATE OF NOTE: MAY 15, 2024@11:09 ENTRY DATE: MAY 15, 2024@11:09:38 AUTHOR: ANSLEY BAUTISTA EXP COSIGNER: URGENCY: STATUS: COMPLETED PRIMARY CARE VISIT DANNY FLORES, is a 74 y/o WHITE MALE who [facility] today [facility] the [place] [facility]. TYPE OF VISIT: Face to face New to this provider HPI: HTN - stable on losartan HLD - lipids wnl, on statin Denies chest pain, palpitation, peripheral edema hypothyroidism - sx, labs stable on Rx prediabetes - A1c 6.0, not on Rx denies polyuria, polydipsia, neuropathy COPD, + smoker 8 cig/day since age 17. Patient states he had LDCT 02/2024 Reports chronic cough, GUADALUPE. Rarely uses his inhaler. BPH - asymptomatic on Rx x 2 obesity - BMI 33. Recent labs reviewed and all medications were reconciled during this visit. HISTORY: PERIOD OF SERVICE - BESOSY FROM Mar TO Feb COMBAT SERVICE INDICATED: No VITAL SIGNS: Temperature 97.8 F [36.6 C] (05/15/2024 11:16) Blood Pressure 144/84 (05/15/2024 11:16) Pulse 73 (05/15/2024 11:16) Respiration 19 (05/15/2024 11:16) Pain 0 (01/31/2024 10:32) BMI BMI: 34.6 Weight 201 lb [91.17 kg] (05/15/2024 11:16) Pulse Oximetry 97% (05/15/2024 11:16) REVIEW OF SYSTEMS: see HPI PHYSICAL EXAMINATION: General: Well-appearing Hortense in no obvious distress. Obese. Mental Status: Alert and oriented x4. Neck: Supple. No lymphadenopathy. No carotid bruit. Thyroid unremarkable. Lungs: Scattered rhonchi in bases, clears with cough. Normal chest excursion. Eupneic respirations. CV: Heart tones S1, S2. RRR. No M/G/R. No peripheral edema. + pedal pulses. GI: Abdomen is soft and nontender. No palpable mass or organomegaly. : No CVA tenderness. Digital prostate exam deferred. Neuro: CN II through XII grossly intact. Normal speech. Sensation intact BLE. Normal gait. Psych: Normal mood and affect. Normal judgment. Cooperative with exam, follows commands. ALLERGIES: Patient has answered [facility] - see end of note PREVENTIVE MEDICINE GOALS Influenza Immunization DUE NOW Medication Reconciliation DUE NOW Tobacco Use Follow-Up DUE NOW Eye Care At-Risk Eval (Provider) DUE NOW (Optional) Whole Health Documentation DUE NOW ASSESSMENT/PLAN: Active problems - Computerized Problem List is the source for the followin. HTN - Hypertension ([facility] [id number]). Overall stable, continue Rx. 2. Hyperlipidaemia (SNOMED CT 79066935) - lipids wnl, continue statin therapy. 3. Prediabetes - A1c 6.0. Not on Rx. Recommend ADA diet. 4. Benign Prostatic Hypertrophy - asymptomatic on Rx. Check PSA with next routine labs. 5. Hypothyroidism - stable on current dose of Rx. 6. Obesity (SNOMED CT 550870984) - BMI 33. Recommend low fat, low pan diet. Declines referral to MOVE, nutrition. 7. COPD - has rescue inhaler PRN. Declines referral to pulmonology. 8. Nicotine dependence (SNOMED CT 08041245) - not interested in cessation. Patient states he had LDCT in February, unsure of results. no PSA on chart - will check with next routine labs FOLLOW UP: Return to clinic as noted below and/or sooner PRN UPCOMING APPOINTMENTS: 05/15/2024 11:30 CWM/SO/PACT 7 05/22/2024 09:00 CWM/SO/MHC/WATTS 05/29/2024 09:30 CWM/SO/MHC/HAMMOND No barriers noted; patient understands and agrees to current treatment plan. If patient has any questions, concerns or changes in current health status he/she will call or [facility] the [facility]. A total of 40 minutes were spent F2F with the patient during this encounter and over half that time was spent on counseling and coordination of care. We discussed in depth all current health conditions and management of these conditions. HM: Influenza Immunization: Deferral / Refusal The patient declines to receive the recommended dose of seasonal influenza vaccine. Immunization: INFLUENZA, UNSPECIFIED FORMULATION Refusal Reason: PATIENT DECISION Patient refuses all immunization(s) in the FLU group Date Documented: 06/18/24 18:02 Medication Reconciliation: Outpatient: Has the patient been taking medications as documented in the EMLR? YES: The patient has been taking medications as documented in the EMLR. Essential Medication List for Review used to complete this medication reconciliation. INCLUDED IN THIS LIST: Alphabetical list of active outpatient prescriptions dispensed from this [facility] (local) and dispensed from another [place] or [facility] facility (remote) as well as inpatient orders (local, pending and active), local clinic medications, locally documented non-VA medications, and local prescriptions that have or been discontinued in the past 90 days. - All changes in medications, including all non-VA/Herbal/OTC medications were entered into CPRS. - If there were any medications the patient should no longer take, they were discontinued. - The patient/caregiver was instructed to update this list, discard old lists, and take this list to the next appointment, whether with a VA or non-VA provider. RSV Immunization: Respiratory Syncytial Virus (RSV) Vaccine: Refused DIVINE BOOKS (RSV vaccine, adjuvanted, Arexvy). Immunization: RSV, RECOMBINANT, PROTEIN SUBUNIT RSVPREF3, ADJUVANT RECONSTITUTED, 0.5 ML, PF Refusal Reason: PATIENT DECISION Patient refuses all immunization(s) in the RSV group Date Documented: 06/18/24 18:03 Tobacco Use Follow-Up: Patient was advised to stop smoking and/or using other tobacco products. Advised patient that a combination of behavioral counseling and FDA-approved cessation medications is the most effective way to ensure their success in stopping to smoke and/or using other tobacco products. The patient was not interested in additional information about behavioral counseling and other support strategies discussed. Informed patient that medications can help with cravings and withdrawal symptoms, and they greatly increase the chances of successfully stopping your tobacco use. The patient was not interested in a prescription for tobacco cessation medications. PAVE Foot Check: A complete foot check was completed at this encounter. VISUAL INSPECTION: Includes inspection for skin breaks, deformity, erythema, trauma, pallor on elevation, dependent rubor, nail deformities, extensive callus and pitting edema. Visual exam results: Normal PEDAL PULSES: Includes palpation of dorsalis and posterior tibial pulses and signs/symptoms of vascular compromise like pain, pallor, parasthesia or paralysis. Present (even if diminished) SENSORY CHECK: Includes 10 gram Monofilament ([place]-Mouna) test of sensation. Intact (Greater than or equal to 80% of sites checked) Abnormal (Less than 80% of sites checked): Intact LOW-RISK: LOW RISK INFORMATION PROVIDED: 1. Advised patient not to walk barefoot. 2. Explained the importance of daily foot checks for changes. 3. Stressed the importance of daily foot hygiene, including bathing and complete drying. Eye Care At-Risk Eval (Provider) : Patient identified to be at risk for the following eye condition(s): DIABETIC RETINOPATHY: Diabetes Diagnosis Information: Encounter Diagnosis: 11/07/2022@09:00 E11.9 (ICD-10-CM) Type 2 Diabetes Mellitus without Complications rank: SECONDARY Prov. Narr. - Diabetes Mellitus Type 2 ([facility] [id number]) MACULAR DEGENERATION: Macular Degeneration Risk Factors Information: Reminder Term: VA-AMD RISK FACTORS Encounter Diagnosis: 09/19/2017@10:00 I25.9 (ICD-10-CM) Chronic Ischemic Heart Disease, unspecified rank: SECONDARY Prov. Narr. - Chronic Ischemic Heart Disease, unspecified Provider educated patient on potential risk of permanent vision loss and recommendation to obtain eye care assessment. Patient verbalized understanding and No Referral Ordered: The patient declined/refused referral for Tele-Eye screening and/or Eye Clinic appointment. Provider educated patient of At-Risk status for identified eye condition(s) and recommendation to obtain eye care assessment. Reason/Comment: last exam about two years ago, declines referral /michael/ NATACHA MOTLEY CERTIFIED NURSE PRACTITIONER Signed: 06/18/2024 18:27 ANSLEY BAUTISTA [place]
--- OUTSIDE RECORDS SUMMARY | 2024-06-25 18:28 | XMS_ITS | Encounter Summary ---
Author Name [facility] ([place]) Organization [facility] ([place]) Address [address] [place] [id number] Care Team Providers Care Ceramic Research Engineer Name Role Phone KEITHMARCELINA MANCINIDANAEMAU Primary Care Provider Unavail able Insurance Providers: [...] PART A Oct 13, 1986 PART A [id number] [phone] HOHOL,NIDHI XAVIER PATIENT MEDICARE (WNR) MEDICARE (M) PART B Oct 13, 1986 PART B [id number] HOHOL,NIDHI XAVIER PATIENT MEDICARE (WNR) MEDICARE (M) PART A Oct 13, 1986 PART A [id number] HOHOL,NIDHI XAVIER PATIENT MEDICARE (WNR) MEDICARE (M) PART B Oct 13, 1986 PART B [id number] HOHOL,NIDHI XAVIER PATIENT Selected Encounter This section includes the information on record at [place] for the Encounter. Date/Time Encounter Type Encounter Description Reason Provider Source Jun 19, 2024 09:00 AM INJ, ATIYAEGA DEVORAENNA, [facility] - IND ICD-10-CM F20.0 Paranoid schizophrenia JOSE WATTS Encounter Template Text not used by [place] Assessments - Encounter Diagnoses This section includes the primary and secondary diagnoses documented for the Encounter. Date/Time Primary/Secondary Diagnosis Diagnosis Name Provider Source Jun 19, 2024 09:23 AM PRIMARY Paranoid schizophrenia JOSE WATTS Plan of Treatment: Future Appointments (+ 6 months) and Future Tests (+/- 45 days) The Plan of Treatment section includes future care activities for the patient from [facility] [place] [facility] This section includes future appointments and future orders which are active, pending or scheduled. Future Appointments This section includes appointments that were scheduled to occur 6 months from the date of the Encounter, up to a maximum of 20 appointments. The data comes from all [place] treatment facilities. Appointment Date/Time Appointment Type Appointme nt Facility Name Jul 17, 2024 09:00 AM AMBULATORY - PSYCHIATRY [facility] Sep 29, 2024 09:30 AM AMBULATORY - PSYCHIATRY [facility] Nov 11, 2024 10:30 AM AMBULATORY - MEDICINE [facility] Active, Pending, and Scheduled Orders This section includes a listing of several types of active, pending, and scheduled orders, including clinic medications orders, diagnostic test orders, procedure orders and consult orders; where the start date of the order is 45 days before the date of the Encounter or 45 days after the date of theEncounter. The data comes from all [place] treatment [facility]. Test Date/Time Test Type Test Details Facility Name May 06, 2024 12:00 AM Laboratory - Chemistry Order URINALYSIS URINE [facility] May 06, 2024 12:00 AM Laboratory - Chemistry Order MICROALBUMIN CREATININE RATIO PANEL URINE (RANDOM) [facility] Social History: Smoking Status (Most current) and Tobacco Use (All prior to encounter date) This section includes the most current, and the historical, smoking and tobacco- related health factors from the [place] facility where the Encounter took place. Current Smoking Status This section includes the most current smoking, or tobacco-related health factor, from the [place] facility where the Encounter took place. Date/Time Current Smoking Status Beto menezes May 15, 2024 11:30 AM VA-TOBACCO SCREEN FOLLOW-UP MODEL Tobacco Use History This section includes a history of the smoking, or tobacco-related health factors, that were collected on or before the date of the Encounter. The data comes from the [place] facility where the Encounter took place. Date/Time Smoking Status/Tobacco Use Comment F acility May 15, 2024 11:30 AM VA-TOBACCO USE ADVICE MODEL May 15, 2024 11:30 AM VA-TOBACCO USE MANAGER AUTO NO MODEL May 15, 2024 11:30 AM VA-TOBACCO USE MED NO MODEL May 10, 2023 10:00 AM VA-TOBACCO USE 30 YEARS OR MORE MODEL May 10, 2023 10:00 AM VA-TOBACCO USE ADVICE MODEL May 10, 2023 10:00 AM VA-TOBACCO USE MANAGER AUTO NO MODEL May 10, 2023 10:00 AM VA-TOBACCO USE MED [facility] May 10, 2023 10:00 AM VA-TOBACCO USE [place] 30 MIN OF [facility] May 10, 2023 10:00 AM VA-TOBACCO USER EVERY DAY MODEL Mar 02, 2022 10:30 AM VA-TOBACCO USE 30 YEARS OR MORE MODEL Mar 02, 2022 10:30 AM VA-TOBACCO USE ADVICE MODEL Mar 02, 2022 10:30 AM VA-TOBACCO USE MANAGER AUTO NO MODEL Mar 02, 2022 10:30 AM VA-TOBACCO USE MED [facility] Mar 02, 2022 10:30 AM VA-TOBACCO USE WI 30 MIN OF [facility] Mar 02, 2022 10:30 AM VA-TOBACCO USER EVERY DAY MODEL Feb 19, 2020 11:00 AM VA-TOBACCO USE 30 YEARS OR MORE MODEL Feb 19, 2020 11:00 AM VA-TOBACCO USE ADVICE MODEL Feb 19, 2020 11:00 AM VA-TOBACCO USE MANAGER AUTO NO MODEL Feb 19, 2020 11:00 AM VA-TOBACCO USE MED [facility] Feb 19, 2020 11:00 AM VA-TOBACCO USE WI 30 MIN OF [place]OR[place] MODEL Feb 19, 2020 11:00 AM VA-TOBACCO USER EVERY DAY MODEL Sep 17, 2018 10:32 AM VA-TOBACCO USE 30 YEARS OR MORE MODEL Sep 17, 2018 10:32 AM VA-TOBACCO USE ADVICE MODEL Sep 17, 2018 10:32 AM VA-TOBACCO USE MANAGER AUTO NO MODEL Sep 17, 2018 10:32 AM VA-TOBACCO USE MED [facility] Sep 17, 2018 10:32 AM VA-TOBACCO USE WI 30 MIN OF [facility] Sep 17, 2018 10:32 AM VA-TOBACCO USER EVERY DAY MODEL Nov 11, 2017 09:34 AM VA-TOBACCO USE 30 YEARS OR MORE MODEL Nov 11, 2017 09:34 AM VA-TOBACCO USE ADVICE MODEL Nov 11, 2017 09:34 AM VA-TOBACCO USE MANAGER AUTO NO MODEL Nov 11, 2017 09:34 AM VA-TOBACCO USE MED NO MODEL Nov 11, 2017 09:34 AM VA-TOBACCO USE WI 30 MIN OF WAKEUP MODEL Nov 11, 2017 09:34 AM VA-TOBACCO USER EVERY DAY MODEL May 31, 2017 09:39 AM V1-PT NOT INTEREST ED IN QUIT TOBACCO USE MODEL Apr 11, 2017 10:01 AM CURRENT SMOKER 1 pack per day MODEL Oct 09, 2016 09:59 AM CURRENT SMOKER [facility] Oct 09, 2016 09:59 AM V1-PT DECLINES REF TO TOBACCO CESS [facility] Oct 09, 2016 09:59 AM V1-PT DECLINES TOB ACCO CESSATION [facility] Oct 09, 2016 09:59 AM V1-PT THINKING ABO UT QUIT TOBACCO USE MODEL Apr 03, 2016 10:14 AM CURRENT SMOKER [facility] Apr 03, 2016 10:14 AM V1-PT NOT INTEREST ED IN QUIT TOBACCO USE MODEL Nov 16, 2015 09:56 AM CURRENT SMOKER alot MODEL September 07, 2015 10:17 AM V1-PT NOT INTEREST ED IN QUIT TOBACCO USE MODEL Mar 23, 2015 10:12 AM V1-PT NOT INTEREST ED IN QUIT TOBACCO USE MODEL Oct 06, 2014 11:34 AM V1-PT NOT INTEREST ED IN QUIT TOBACCO USE MODEL Apr 14, 2014 10:36 AM CURRENT SMOKER 1 pack a day MODEL Apr 14, 2014 10:36 AM V1-PT DECLINES REF TO TOBACCO CESS [facility] Apr 14, 2014 10:36 AM V1-PT DECLINES TOB ACCO CESSATION [facility] Apr 14, 2014 10:36 AM V1-PT NOT INTEREST ED IN QUIT TOBACCO USE MODEL Sep 30, 2013 10:04 AM V1-PT DECLINES REF TO TOBACCO CESS [facility] Sep 30, 2013 10:04 AM V1-PT DECLINES TOB ACCO CESSATION [facility] Sep 30, 2013 10:04 AM V1-PT NOT INTEREST ED IN QUIT TOBACCO USE MODEL Apr 16, 2013 11:44 AM CURRENT SMOKER [facility] Apr 16, 2013 11:44 AM V1-PT NOT INTEREST ED IN QUIT TOBACCO USE MODEL Sep 24, 2012 10:18 AM V1-PT DECLINES REF TO TOBACCO CESS [facility] Sep 24, 2012 10:18 AM V1-PT DECLINES TOB ACCO CESSATION [facility] Sep 24, 2012 10:18 AM V1-PT NOT INTEREST ED IN QUIT TOBACCO USE MODEL May 07, 2012 10:03 AM CURRENT SMOKER [facility] Jan 09, 2012 11:24 AM V1-PT DECLINES REF TO TOBACCO CESS [facility] Jan 09, 2012 11:24 AM V1-PT DECLINES TOB ACCO CESSATION [facility] Jan 09, 2012 11:24 AM V1-PT NOT INTEREST ED IN QUIT TOBACCO USE MODEL Jul 26, 2011 12:24 PM V1-PT DECLINES REF TO TOBACCO CESS [facility] Jul 26, 2011 12:24 PM V1-PT DECLINES TOB ACCO CESSATION [facility] Jul 26, 2011 12:24 PM V1-PT NOT INTEREST ED IN QUIT TOBACCO USE MODEL May 02, 2011 12:09 PM CURRENT SMOKER smokes 1 [facility] Jan 31, 2011 10:20 AM V1-PT DECLINES REF TO TOBACCO CESS [facility] Jan 31, 2011 10:20 AM V1-PT DECLINES TOB ACCO CESSATION [facility] Jan 31, 2011 10:20 AM V1-PT NOT INTEREST ED IN QUIT TOBACCO USE MODEL August 16, 2010 10:40 AM V1-PT DECLINES REF TO TOBACCO CESS [facility] August 16, 2010 10:40 AM V1-PT DECLINES TOB ACCO CESSATION [facility] August 16, 2010 10:40 AM V1-PT NOT INTEREST ED IN QUIT TOBACCO USE MODEL Jun 21, 2010 12:53 PM CURRENT SMOKER smokes 1 [facility] Mar 03, 2010 10:14 AM V1-PT DECLINES REF TO TOBACCO CESS [facility] Mar 03, 2010 10:14 AM V1-PT DECLINES TOB ACCO CESSATION [facility] Mar 03, 2010 10:14 AM V1-PT NOT INTEREST ED IN QUIT TOBACCO USE MODEL Jul 19, 2009 04:04 PM V1-PT DECLINES REF TO TOBACCO CESS [facility] Jul 19, 2009 04:04 PM V1-PT DECLINES TOB ACCO CESSATION [facility] Jul 19, 2009 04:04 PM V1-PT NOT INTEREST ED IN QUIT TOBACCO USE MODEL Jul 05, 2009 11:45 AM CURRENT SMOKER 1 ppd MODEL Feb 15, 2009 10:25 AM V1-PT DECLINES REF TO TOBACCO CESS [facility] Feb 15, 2009 10:25 AM V1-PT DECLINES TOB ACCO CESSATION [facility] Feb 15, 2009 10:25 AM V1-PT NOT INTEREST ED IN QUIT TOBACCO USE MODEL September 09, 2008 09:57 AM V1-PT DECLINES REF TO TOBACCO CESS [facility] September 09, 2008 09:57 AM V1-PT DECLINES TOB ACCO CESSATION [facility] September 09, 2008 09:57 AM V1-PT NOT INTEREST ED IN QUIT TOBACCO USE MODEL September 09, 2008 09:57 AM V1-PT THINKING ABO UT QUIT TOBACCO USE MODEL Jan 28, 2008 11:18 AM V1-PT DECLINES REF TO TOBACCO CESS [facility] Jan 28, 2008 11:18 AM V1-PT DECLINES TOB ACCO CESSATION [facility] Jan 28, 2008 11:18 AM V1-PT THINKING ABO UT QUIT TOBACCO USE MODEL September 09, 2007 10:11 AM V1-PT DECLINES REF TO TOBACCO CESS [facility] September 09, 2007 10:11 AM V1-PT DECLINES TOB ACCO CESSATION [facility] September 09, 2007 10:11 AM V1-PT NOT INTEREST ED IN QUIT TOBACCO USE MODEL Jul 29, 2007 02:00 PM V1-PT DECLINES REF TO TOBACCO CESS [facility] Jul 29, 2007 02:00 PM V1-PT DECLINES TOB ACCO CESSATION [facility] Jul 29, 2007 02:00 PM V1-PT THINKING ABO UT QUIT TOBACCO USE MODEL Mar 05, 2007 11:18 AM V1-PT DECLINES REF TO TOBACCO CESS [facility] Mar 05, 2007 11:18 AM V1-PT DECLINES TOB ACCO CESSATION [facility] Mar 05, 2007 11:18 AM V1-PT NOT INTEREST ED IN QUIT TOBACCO USE MODEL Jul 09, 2006 09:52 AM CURRENT SMOKER [facility] Dec 26, 2004 09:31 AM CURRENT SMOKER He says he doesn't inhale. Advised to quit. MODEL Oct 15, 2003 01:15 PM CURRENT SMOKER 1ppd x 30yrs MODEL Dec 02, 2002 10:38 AM LIFETIME NON-TOBACCO USER MODEL Oct 21, 2002 10:22 AM LIFETIME NON-TOBACCO USER MODEL Jul 01, 2002 10:42 AM CURRENT SMOKER [facility] Jun 03, 2002 10:47 AM CURRENT SMOKER 1 pack daily..smoking 35 years MODEL May 27, 2002 10:29 AM CURRENT SMOKER one pack MODEL Dec 13, 2000 11:46 AM CURRENT SMOKER 1 pack a day MODEL Advance Directives: All historical and current Section Date Range: From patient's date of to the date document was created. This section includes ALL of a patient's completed or amended VA Advance and Rescinded Directives. The entries below indicate that a directive exists for the patient, but an actual copy is not included with this document. The data comes from all [place] facilities. Date Advance Directives Provider Source Oct 24, 2021 ADVANCE DIRECTIVE ZO GRADY [facility] Encounter Notes: All associated encounter notes This section contains the clinical notes associated to the Encounter. Date/Time Encounter Note(s) Provider Source Jun 19, 2024 09:23 AM ADDENDUM: LOCAL TITLE: Addendum STANDARD TITLE: ADDENDUM DATE OF NOTE: JUN 19, 2024@09:23:20 ENTRY DATE: JUN 19, 2024@09:23:20 AUTHOR: JOSE WATTS COSIGNER: URGENCY: STATUS: COMPLETED July 17 899 RTC /es/ JOSE WATTS Registered Nurse Signed: 06/19/2024 09:23 Receipt Acknowledged By: 06/19/2024 10:05 /michael/ JOSE MANUEL RUEDA [employer]ED MERCHANDISE PLANNER --- Original Document --- 06/19/24 OUTPATIENT MENTAL HEALTH INJECTION NOTE (T): Patient Identity Verified By:Full SSN, Date of , Full Name Medication Ordered by:Dr. Bhardwaj Reason for Injection (Specify Diagnosis):Schizophrenia Date of last injection: May Injection Details: Medication:Invega Sustenna Lot number: [id number] Expiration date: Dosage:234 mg/ 1.5 ml Injection Site:Left Deltoid Injection Narrative: Dillon is known to this group underwriter and confirmed his identity with his date of and social security number. Dillon is friendly, and oriented to person, place, time, and situation. He is well groomed. Dillon denies SI/HI and does not report AH/VH today. There is no evidence of delusional thinking. The shot takes away the paranoia, it's a miracle drug . Dillon denies any alcohol and or illicit drug use. He saw Dr. Bhardwaj 05/29, and he remains stable on the medication. He is very polite and thanks me for caring for him. Global Manager will arrange transportation to his appointment with me next month. Administered INVEGA SUSTENNA 234mg/1.5ml IM at ROOM temperature in the Left deltoid per 's request given without adverse effects per order of Dr. Bhardwaj. SVSO - Vital [employer] Outpat. Measurement DT TEMP RESP PULSE POx BP F(C) (L/MIN)(%) 06/19/2024 09:17 16 59 98 146/78 HGB A1C (WR): 6.0 H WBC: 6.38 RBC: 4.67 HGB: 14.7 HCT: 45.2 MCV: 96.8 MCHC: 32.5 RDW: 13.5 PLT: 105 L MCH: 31.5 Neut %: 67.1 Lymph %: 23.0 [place] %: 5.8 Eos %: 3.3 Baso %: 0.8 Neut, Abs: 4.28 Lymph, Abs: 1.47 [place], Abs: 0.37 Eos, Abs: 0.21 Baso, Abs: 0.05 Immature Granulocytes %: 0.0 Immature Granulocytes, Abs: 0.00 NRBC%: 0.0 NRBC#: 0.00 TSH (Access): 2.55 GLUCOSE: 99 UREA NITROGEN: 21 SODIUM: 142 POTASSIUM: 4.2 CHLORIDE: 110 CO2: 25 CHOLESTEROL: 133 PROTEIN,TOTAL: 7.5 ALBUMIN: 4.1 ALKALINE PHOSPHATASE: 76 SGOT: 18 SGPT: 21 TRIGLYCERIDE: 79 LDL CHOL: 73 CHOL/HDL RATIO: 3.0 HDL: 44 BILIRUBIN,TOT.: 0.4 CREATININE-EGFR: 0.92 eGFR CKD-EPI 2020: 87 Active problems - Computerized Problem List is the source for the followin. Under care of multiple providers 2. Pulmonary emphysema 3. HTN - Hypertension (SCT 08408313) 4. Prediabetes 5. Vitamin D Deficiency (SCT 69450899) 6. Benign Prostatic Hypertrophy without Outflow Obstruction (SCT 395639476) 7. Family history of cancer of colon 8. History of colonic polyp (SNOMED CT 015162027) 9. Hypothyroidism 10. Obesity (SNOMED CT 654440725) 11. Hyperlipidaemia (SNOMED CT 27206622) 12. Nicotine dependence (SNOMED CT 46652076) 13. Schizophrenia (SNOMED CT 27497812) Active Outpatient Medications (including Supplies): ALBUTEROL 90MCG (CFC-F) 200D ORAL INHL INHALE 1 PUFF BY ACTIVE MOUTH TWICE DAILY NEEDED Indication: FOR BRONCHOSPASM CHOLECALCIF 50MCG (D3-2,000UNIT) TAB TAKE ONE TABLET BY ACTIVE MOUTH ONCE DAILY FOR VITAMIN SUPPLEMENTATION Indication: FOR VITAMIN D DEFICIENCY FINASTERIDE 5MG TAB TAKE ONE TABLET BY MOUTH ONCE DAILY ACTIVE FOR PROSTATE LOSARTAN 50MG TAB TAKE ONE TABLET BY MOUTH ONCE DAILY FOR ACTIVE BLOOD PRESSURE/HEART MIRTAZAPINE 30MG TAB TAKE ONE TABLET BY MOUTH AT BEDTIME ACTIVE (FOR DEPRESSION) PALIPERIDONE PALMITATE 234MG/KIT INJECT 1 SYRINGE ACTIVE INTRAMUSCULARLY EVERY FOUR WEEKS Indication: FOR SCHIZOPHRENIA SIMVASTATIN 80MG TAB TAKE ONE TABLET BY MOUTH DAILY ACTIVE TAMSULOSIN HCL 0.4MG CAP TAKE ONE CAPSULE BY MOUTH AT ACTIVE BEDTIME Non-VA LEVOTHYROXINE NA 137MCG TAB 137MCG BY MOUTH ONCE ACTIVE DAILY 9 Total Medications 09/29/2024 09:30 SPR MHC PSYTR 3 11/11/2024 10:30 SPR PACT 7 ASSISTANT KITCHEN MANAGER PATIENT EDUCATION: [place] denies side effects from medication. [place] acknowledges understanding of education offered regarding medication action and potential side effects. acknowledges understanding the possibility of significant injection site reactions that occur in a small percentage of patients. acknowledges understanding that they should seek medical attention if injection site becomes increasingly painful, hard, swollen, red or hot. Date of next injection: July 17 899 Next Physician's/Provider's appointment: September 29 929 [place] understands how to utilize the [facility] Crisis Line (9-8-8 option 1) and urged to call that number at any time if they have thoughts about suicide and, or to call 911 or go to nearest E.R. if they have suicidal thoughts. [place] was provided the date/time of next medication administration appointment, as well as group underwriter's contact information. If [place] has any questions, concerns, or changes in current health status will call or come in to the [facility]. 20 min(s) spent in patient care and education. /michael/ JOSE WATTS Registered Nurse Signed: 06/19/2024 09:23 JOSE WAT[place]FIELD Jun 19, 2024 09:18 AM MENTAL HEALTH NOTE : LOCAL TITLE: OUTPATIENT MENTAL HEALTH INJECTION NOTE (T) STANDARD TITLE: MENTAL HEALTH NOTE DATE OF NOTE: JUN 19, 2024@09:18 ENTRY DATE: JUN 19, 2024@09:18:42 AUTHOR: WATTSHERACLIOVeronika SAUCEDO COSIGNER: URGENCY: STATUS: COMPLETED OUTPATIENT MENTAL HEALTH INJECTION NOTE (T) Has ADDENDA Patient Identity Verified By:Full SSN, Date of , Full Name Medication Ordered by:Dr. Bhardwaj Reason for Injection (Specify Diagnosis):Schizophrenia Date of last injection: May Injection Details: Medication:Invega Sustenna Lot number: [id number] Expiration date: Dosage:234 mg/ 1.5 ml Injection Site:Left Deltoid Injection Narrative: Dillon is known to this group underwriter and confirmed his identity with his date of and social security number. Dillon is friendly, and oriented to person, place, time, and situation. He is well groomed. Dillon denies SI/HI and does not report AH/VH today. There is no evidence of delusional thinking. The shot takes away the paranoia, it's a miracle drug . Dillon denies any alcohol and or illicit drug use. He saw Dr. Bhardwaj 05/29, and he remains stable on the medication. He is very polite and thanks me for caring for him. Global Manager will arrange transportation to his appointment with me next month. Administered INVEGA SUSTENNA 234mg/1.5ml IM at ROOM temperature in the Left deltoid per [place]'s request given without adverse effects per order of Dr. Bhardwaj. SVSO - V[employer] Outpat. Measurement DT TEMP RESP PULSE POx BP F(C) (L/MIN)(%) 06/19/2024 09:17 16 59 98 146/78 HGB A1C (WR): 6.0 H WBC: 6.38 RBC: 4.67 HGB: 14.7 HCT: 45.2 MCV: 96.8 MCHC: 32.5 RDW: 13.5 PLT: 105 L MCH: 31.5 Neut %: 67.1 Lymph %: 23.0 [place] %: 5.8 Eos %: 3.3 Baso %: 0.8 Neut, Abs: 4.28 Lymph, Abs: 1.47 [place], Abs: 0.37 Eos, Abs: 0.21 Baso, Abs: 0.05 Immature Granulocytes %: 0.0 Immature Granulocytes, Abs: 0.00 NRBC%: 0.0 NRBC#: 0.00 TSH (Access): 2.55 GLUCOSE: 99 UREA NITROGEN: 21 SODIUM: 142 POTASSIUM: 4.2 CHLORIDE: 110 CO2: 25 CHOLESTEROL: 133 PROTEIN,TOTAL: 7.5 ALBUMIN: 4.1 ALKALINE PHOSPHATASE: 76 SGOT: 18 SGPT: 21 TRIGLYCERIDE: 79 LDL CHOL: 73 CHOL/HDL RATIO: 3.0 HDL: 44 BILIRUBIN,TOT.: 0.4 CREATININE-EGFR: 0.92 eGFR CKD-EPI 2020: 87 Active problems - Computerized Problem List is the source for the followin. Under care of multiple providers 2. Pulmonary emphysema 3. HTN - Hypertension (SCT 52030115) 4. Prediabetes 5. Vitamin D Deficiency (SCT 65309929) 6. Benign Prostatic Hypertrophy without Outflow Obstruction (SCT 641503698) 7. Family history of cancer of colon 8. History of colonic polyp (SNOMED CT 399629418) 9. Hypothyroidism 10. Obesity (SNOMED CT 059195602) 11. Hyperlipidaemia (SNOMED CT 51200328) 12. Nicotine dependence (SNOMED CT 46594199) 13. Schizophrenia (SNOMED CT 00924718) Active Outpatient Medications (including Supplies): ALBUTEROL 90MCG (CFC-F) 200D ORAL INHL INHALE 1 PUFF BY ACTIVE MOUTH TWICE DAILY NEEDED Indication: FOR BRONCHOSPASM CHOLECALCIF 50MCG (D3-2,000UNIT) TAB TAKE ONE TABLET BY ACTIVE MOUTH ONCE DAILY FOR VITAMIN SUPPLEMENTATION Indication: FOR VITAMIN D DEFICIENCY FINASTERIDE 5MG TAB TAKE ONE TABLET BY MOUTH ONCE DAILY ACTIVE FOR PROSTATE LOSARTAN 50MG TAB TAKE ONE TABLET BY MOUTH ONCE DAILY FOR ACTIVE BLOOD PRESSURE/HEART MIRTAZAPINE 30MG TAB TAKE ONE TABLET BY MOUTH AT BEDTIME ACTIVE (FOR DEPRESSION) PALIPERIDONE PALMITATE 234MG/KIT INJECT 1 SYRINGE ACTIVE INTRAMUSCULARLY EVERY FOUR WEEKS Indication: FOR SCHIZOPHRENIA SIMVASTATIN 80MG TAB TAKE ONE TABLET BY MOUTH DAILY ACTIVE TAMSULOSIN HCL 0.4MG CAP TAKE ONE CAPSULE BY MOUTH AT ACTIVE BEDTIME Non-VA LEVOTHYROXINE NA 137MCG TAB 137MCG BY MOUTH ONCE ACTIVE DAILY 9 Total Medications 09/29/2024 09:30 SPR MHC PSYTR 3 11/11/2024 10:30 SPR PACT 7 ASSISTANT KITCHEN MANAGER PATIENT EDUCATION: [place] denies side effects from medication. [place] acknowledges understanding of education offered regarding medication action and potential side effects. [place] acknowledges understanding the possibility of significant injection site reactions that occur in a small percentage of patients. acknowledges understanding that they should seek medical attention if injection site becomes increasingly painful, hard, swollen, red or hot. Date of next injection: July 17 899 Next Physician's/Provider's appointment: September 29 929 understands how to utilize the [email or web address] Crisis Line (9-8-8 option 1) and urged to call that number at any time if they have thoughts about suicide and, or to call 911 or go to nearest E.R. if they have suicidal thoughts. was provided the date/time of next medication administration appointment, as well as group underwriter's contact information. If has any questions, concerns, or changes in current health status will call or come in to the [facility]. 20 min(s) spent in patient care and education. /no WATTS Registered Nurse Signed: 06/19/2024 09:23 06/19/2024 ADDENDUM STATUS: COMPLETED July 17 899 RTC /no WATTS Registered Nurse Signed: 06/19/2024 09:23 Receipt Acknowledged By: * AWAITING SIGNATURE * JOSE MANUEL RUEDA,JOSE SANTANA
--- OUTSIDE RECORDS SUMMARY | 2024-06-25 18:28 | XMS_ITS | Encounter Summary ---
Author Name [facility] ([place] Address [address] [place] [address] Care Team Providers Care Tub Wash Operator Name Role Phone KEITHMARCELINA MANCINIKEKEJUNIOR Primary Care Provider Unavail able Insurance Providers: [...] PART A Oct 13, 1986 PART A [id number] SANDRA,NIDHI XAVIER PATIENT MEDICARE (WNR) MEDICARE (M) PART B Oct 13, 1986 PART B [id number] HOHOL,NIDHI XAVIER PATIENT MEDICARE (WNR) MEDICARE (M) PART A Oct 13, 1986 PART A [id number] HOHOL,NIDHI XAVIER PATIENT MEDICARE (WNR) MEDICARE (M) PART B Oct 13, 1986 PART B [id number] HOHOL,NIDHI XAVIER PATIENT Selected Encounter This section includes the information on record at [place] for the Encounter. Date/Time Encounter Type Encounter Description Reason Provider Source May 29, 2024 09:30 AM OFFICE O/P EST LOW 20 [facility] - IND ICD-10-CM F20.0 Paranoid schizophrenia LEEANN HAMMOND Encounter Template Text not used by [place] Assessments - Encounter Diagnoses This section includes the primary and secondary diagnoses documented for the Encounter. Date/Time Primary/Secondary Diagnosis Diagnosis Name Provider Source May 29, 2024 09:47 AM PRIMARY Paranoid schizophrenia EWA HAMMOND [facility] Plan of Treatment: Future Appointments (+ 6 months) and Future Tests (+/- 45 days) The Plan of Treatment section includes future care activities for the patient from all [place] treatmentfacilities. This section includes future appointments and future orders which are active, pending or scheduled. Future Appointments This section includes appointments that were scheduled to occur 6 months from the date of the Encounter, up to a maximum of 20 appointments. The data comes from all [place] treatment facilities. Appointment Date/Time Appointment Type Appointme nt Facility Name Jun 19, 2024 09:00 AM AMBULATORY - PSYCHIATRY [facility] Jul 17, 2024 09:00 AM AMBULATORY PSYCHIATRY [facility] Sep 29, 2024 09:30 AM AMBULATORY - PSYCHIATRY [facility] Nov 11, 2024 10:30 AM AMBULATORY - MEDICINE [facility] Active, Pending, and Scheduled Orders This section includes a listing of several types of active, pending, and scheduled orders, including clinic medications orders, diagnostic test orders, procedure orders and consult orders; where the start date of the order is 45 days before the date of the Encounter or 45 days after the date of theEncounter. The data comes from all [facility]. Test Date/Time Test Type Test Details Facility Name May 06, 2024 12:00 AM Laboratory - Chemistry Order URINALYSIS URINE [facility] May 06, 2024 12:00 AM Laboratory - Chemistry Order MICROALBUMIN CREATININE RATIO PANEL URINE (RANDOM) [facility] Lab Results: +/- 30 days of the encounter This section includes the Chemistry and Hematology Lab Results on record with [place] for the patient. Radiology Reports and Pathology Reports are provided separately, in subsequent sections. Lab Results This section contains the Chemistry/Hematology Results that were resulted 30 days before or 30 daysafter the date of the Encounter. Date/Time Source Result Type Result - Unit Interpretation Reference Range Comment May 08, 2024 08:56 AM [facility] HEMOGLOBIN A1C PANEL Specimen Type: BLOOD Comment: [...] May 06, 2024 12:32 PM Reporting Lab: [address] [id number] Performing Lab: [address] [address] HEMOGLOBIN A1C 6.0 H 4.0-5.6 May 08, 2024 08:56 AM [facility] TSH Specimen Type: SERUM No comment entered. Ordering Provider: ANSLEY BAUTISTA Report Released Date/Time: May 06, 2024 12:32 PM Reporting Lab: [address] [address] Performing Lab: [address] [address] TSH 2.55 u[IU]/mL 0.35-5.00 May 08, 2024 08:56 AM [facility] LIPID PANEL FASTING Specimen Type: SERUM No comment entered. Ordering Provider: ANSLEY BAUTISTA Report Released Date/Time: May 06, 2024 12:32 PM Reporting Lab: [address] [address] Performing Lab: [address] [address] CHOLESTEROL 133 mg/dL TRIGLYCERIDE 79 mg/dL 0-150 LDL calculated 73 mg/dL 0-129 CHOL/HDL 3.0 HDL CHOLESTEROL 44 mg/dL 40-60 May 08, 2024 08:56 AM [facility] LIVER FUNCTION Specimen Type: SERUM No comment entered. Ordering Provider: ANSLEY BAUTISTA Report Released Date/Time: May 06, 2024 12:32 PM Reporting Lab: [facility] [address] [facility] [address] Performing Lab: [address] [address] PROTEIN,TOTAL 7.5 g/dL 6.0-8.3 ALBUMIN 4.1 g/dL 3.5-5.0 ALKALINE PHOSPHATASE 76 U/L 40-150 AST 18 U/L 5-34 ALT 21 U/L BILIRUBIN, TOTAL 0.4 mg/dL 0.2-1.2 May 08, 2024 08:56 AM [facility] BASIC METABOLIC PANEL (fasting) Specimen Type: SERUM No comment entered. Ordering Provider: ANSLEY BAUTISTA Report Released Date/Time: May 06, 2024 12:32 PM Reporting Lab: [address] [address] Performing Lab: [address] [address] UREA NITROGEN 21 mg/dL 7-25 GLUCOSE 99 mg/dL 65-100 SODIUM 142 mmol/L 135-145 POTASSIUM 4.2 mmol/L 3.5-5.0 CHLORIDE 110 mmol/L 100-110 CO2 25 meq/L 20-30 CREATININE, Serum 0.92 mg/dL 0.50-1.40 eGFR(CKD-EPI 2020) 87 mL/min >60 May 08, 2024 08:56 AM [facility] CBC AND DIFF (AUTO) Specimen Type: BLOOD No comment entered. Ordering Provider: ANSLEY BAUTISTA Report Released Date/Time: May 06, 2024 12:32 PM Reporting Lab: [address] [address] Performing Lab: [address] [address] WBC 6.38 10*3/uL 4.50-11.00 RBC 4.67 10*6/uL [...] 0.0 0.0-0.0 NRBC, ABS 0.00 10*3/uL 0.00-0.00 Social History: Smoking Status (Most current) and Tobacco Use (All prior to encounter date) This section includes the most current, and the historical, smoking and tobacco- related health factors from the [place] facility where the Encounter took place. Current Smoking Status This section includes the most current smoking, or tobacco-related health factor, from the [place] facility where the Encounter took place. Date/Time Current Smoking Status Comment Dayami menezes May 15, 2024 11:30 AM VA-TOBACCO SCREEN FOLLOW-UP [facility] Tobacco Use History This section includes a history of the smoking, or tobacco-related health factors, that were collected on or before the date of the Encounter. The data comes from the [place] facility where the Encounter took place. Date/Time Smoking Status/Tobacco Use Comment F acility May 15, 2024 11:30 AM VA-TOBACCO USE ADVICE [facility] May 15, 2024 11:30 AM VA-TOBACCO USE IND[employer]AL [employer]ANT CUSTODIAN NO [facility] May 15, 2024 11:30 AM VA-TOBACCO USE MED NO [facility] May 10, 2023 10:00 AM VA-TOBACCO USE 30 YEARS OR MORE [facility] May 10, 2023 10:00 AM VA-TOBACCO USE ADVICE [facility] May 10, 2023 10:00 AM VA-TOBACCO USE IND[employer]AL [employer]ANT CUSTODIAN NO [facility] May 10, 2023 10:00 AM VA-TOBACCO USE MED NO [facility] May 10, 2023 10:00 AM VA-TOBACCO USE [place] 30 MIN OF [facility] May 10, 2023 10:00 AM VA-TOBACCO USER EVERY DAY [facility] Mar 02, 2022 10:30 AM VA-TOBACCO USE 30 YEARS OR MORE [facility] Mar 02, 2022 10:30 AM VA-TOBACCO USE ADVICE [facility] Mar 02, 2022 10:30 AM VA-TOBACCO USE [employer] CUST[employer]IAN NO [facility] Mar 02, 2022 10:30 AM VA-TOBACCO USE MED NO [facility] Mar 02, 2022 10:30 AM VA-TOBACCO USE WI 30 MIN OF [facility] Mar 02, 2022 10:30 AM VA-TOBACCO USER EVERY DAY [facility] Feb 19, 2020 11:00 AM VA-TOBACCO USE 30 YEARS OR MORE [facility] Feb 19, 2020 11:00 AM VA-TOBACCO USE ADVICE [facility] Feb 19, 2020 11:00 AM VA-TOBACCO USE [employer] C[employer]IAN NO [facility] Feb 19, 2020 11:00 AM VA-TOBACCO USE MED NO [facility] Feb 19, 2020 11:00 AM VA-TOBACCO USE [place] 30 MIN OF [facility] Feb 19, 2020 11:00 AM VA-TOBACCO USER EVERY DAY [facility] Sep 17, 2018 10:32 AM VA-TOBACCO USE 30 YEARS OR MORE [facility] Sep 17, 2018 10:32 AM VA-TOBACCO USE ADVICE [facility] Sep 17, 2018 10:32 AM VA-TOBACCO USE [employer] NO [facility] Sep 17, 2018 10:32 AM VA-TOBACCO USE MED [facility] Sep 17, 2018 10:32 AM VA-TOBACCO USE WI 30 MIN OF [facility] Sep 17, 2018 10:32 AM VA-TOBACCO USER EVERY DAY [facility] Nov 11, 2017 09:34 AM VA-TOBACCO USE 30 YEARS OR MORE [facility] Nov 11, 2017 09:34 AM VA-TOBACCO USE ADVICE [facility] Nov 11, 2017 09:34 AM VA-TOBACCO USE [employer] C[employer]IAN NO [facility] Nov 11, 2017 09:34 AM VA-TOBACCO USE MED [facility] Nov 11, 2017 09:34 AM VA-TOBACCO USE [place] 30 MIN OF [facility] Nov 11, 2017 09:34 AM VA-TOBACCO USER EVERY DAY [facility] May 31, 2017 09:39 AM V1-PT NOT INTEREST ED IN QUIT TOBACCO USE [facility] Apr 11, 2017 10:01 AM CURRENT SMOKER 1 pack per day [facility] Oct 09, 2016 09:59 AM CURRENT SMOKER [facility] Oct 09, 2016 09:59 AM V1-PT DECLINES REF TO TOBACCO CESS [facility] Oct 09, 2016 09:59 AM V1-PT DECLINES TOB ACCO CESSATION [facility] Oct 09, 2016 09:59 AM V1-PT THINKING ABO UT QUIT TOBACCO USE [facility] Apr 03, 2016 10:14 AM CURRENT SMOKER [facility] Apr 03, 2016 10:14 AM V1-PT NOT INTEREST ED IN QUIT TOBACCO USE [facility] Nov 16, 2015 09:56 AM CURRENT SMOKER alot [facility] September 07, 2015 10:17 AM V1-PT NOT INTEREST ED IN QUIT TOBACCO USE [facility] Mar 23, 2015 10:12 AM V1-PT NOT INTEREST ED IN QUIT TOBACCO USE [facility] Oct 06, 2014 11:34 AM V1-PT NOT INTEREST ED IN QUIT TOBACCO USE [facility] Apr 14, 2014 10:36 AM CURRENT SMOKER 1 pack a day [facility] Apr 14, 2014 10:36 AM V1-PT DECLINES REF TO TOBACCO CESS [facility] Apr 14, 2014 10:36 AM V1-PT DECLINES TOB ACCO CESSATION [facility] Apr 14, 2014 10:36 AM V1-PT NOT INTEREST ED IN QUIT TOBACCO USE [facility] Sep 30, 2013 10:04 AM V1-PT DECLINES REF TO TOBACCO CESS [facility] Sep 30, 2013 10:04 AM V1-PT DECLINES TOB ACCO CESSATION [facility] Sep 30, 2013 10:04 AM V1-PT NOT INTEREST ED IN QUIT TOBACCO USE [facility] Apr 16, 2013 11:44 AM CURRENT [facility]MOKER [facility] Apr 16, 2013 11:44 AM V1-PT NOT INTEREST ED IN QUIT TOBACCO USE [facility] Sep 24, 2012 10:18 AM V1-PT DECLINES REF TO TOBACCO CESS [facility] Sep 24, 2012 10:18 AM V1-PT DECLINES TOB ACCO CESSATION [facility] Sep 24, 2012 10:18 AM V1-PT NOT INTEREST ED IN QUIT TOBACCO USE [facility] May 07, 2012 10:03 AM CURRENT SMOKER [facility] Jan 09, 2012 11:24 AM V1-PT DECLINES REF TO TOBACCO CESS [facility] Jan 09, 2012 11:24 AM V1-PT DECLINES TOB ACCO CESSATION [facility] Jan 09, 2012 11:24 AM V1-PT NOT INTEREST ED IN QUIT TOBACCO USE [facility] Jul 26, 2011 12:24 PM V1-PT DECLINES REF TO TOBACCO CESS [facility] Jul 26, 2011 12:24 PM V1-PT DECLINES TOB ACCO CESSATION [facility] Jul 26, 2011 12:24 PM V1-PT NOT INTEREST ED IN QUIT TOBACCO USE [facility] May 02, 2011 12:09 PM CURRENT SMOKER smokes [address] [facility] Jan 31, 2011 10:20 AM V1-PT DECLINES REF TO TOBACCO CESS [facility] Jan 31, 2011 10:20 AM V1-PT DECLINES TOB ACCO CESSATION [facility] Jan 31, 2011 10:20 AM V1-PT NOT INTEREST ED IN QUIT TOBACCO USE [facility] August 16, 2010 10:40 AM V1-PT DECLINES REF TO TOBACCO CESS [facility] August 16, 2010 10:40 AM V1-PT DECLINES TOB ACCO CESSATION [facility] August 16, 2010 10:40 AM V1-PT NOT INTEREST ED IN QUIT TOBACCO USE [facility] Jun 21, 2010 12:53 PM CURRENT SMOKER smokes [address] [facility] Mar 03, 2010 10:14 AM V1-PT DECLINES REF TO TOBACCO CESS [facility] Mar 03, 2010 10:14 AM V1-PT DECLINES TOB ACCO CESSATION [facility] Mar 03, 2010 10:14 AM V1-PT NOT INTEREST ED IN QUIT TOBACCO USE [facility] Jul 19, 2009 04:04 PM V1-PT DECLINES REF TO TOBACCO CESS [facility] Jul 19, 2009 04:04 PM V1-PT DECLINES TOB ACCO CESSATION [facility] Jul 19, 2009 04:04 PM V1-PT NOT INTEREST ED IN QUIT TOBACCO USE [facility] Jul 05, 2009 11:45 AM CURRENT SMOKER [address] [facility] Feb 15, 2009 10:25 AM V1-PT DECLINES REF TO TOBACCO CESS [facility] Feb 15, 2009 10:25 AM V1-PT DECLINES TOB ACCO CESSATION [facility] Feb 15, 2009 10:25 AM V1-PT NOT INTEREST ED IN QUIT TOBACCO USE [facility] September 09, 2008 09:57 AM V1-PT DECLINES REF TO TOBACCO CESS [facility] September 09, 2008 09:57 AM V1-PT DECLINES TOB ACCO CESSATION [facility] September 09, 2008 09:57 AM V1-PT NOT INTEREST ED IN QUIT TOBACCO USE [facility] September 09, 2008 09:57 AM V1-PT THINKING ABO UT QUIT TOBACCO USE [facility] Jan 28, 2008 11:18 AM V1-PT DECLINES REF TO TOBACCO CESS [facility] Jan 28, 2008 11:18 AM V1-PT DECLINES TOB ACCO CESSATION [facility] Jan 28, 2008 11:18 AM V1-PT THINKING ABO UT QUIT TOBACCO USE [facility] September 09, 2007 10:11 AM V1-PT DECLINES REF TO TOBACCO CESS [facility] September 09, 2007 10:11 AM V1-PT DECLINES TOB ACCO CESSATION [facility] September 09, 2007 10:11 AM V1-PT NOT INTEREST ED IN QUIT TOBACCO USE [facility] Jul 29, 2007 02:00 PM V1-PT DECLINES REF TO TOBACCO CESS [facility] Jul 29, 2007 02:00 PM V1-PT DECLINES TOB ACCO CESSATION [facility] Jul 29, 2007 02:00 PM V1-PT THINKING ABO UT QUIT TOBACCO USE [facility] Mar 05, 2007 11:18 AM V1-PT DECLINES REF TO TOBACCO CESS [facility] Mar 05, 2007 11:18 AM V1-PT DECLINES TOB ACCO CESSATION [facility] Mar 05, 2007 11:18 AM V1-PT NOT INTEREST ED IN QUIT TOBACCO USE [facility] Jul 09, 2006 09:52 AM CURRENT SMOKER [facility] Dec 26, 2004 09:31 AM CURRENT SMOKER He says he doesn't inhale. Advised to quit. [facility] Oct 15, 2003 01:15 PM CURRENT SMOKER 1ppd x 30yrs [facility] Dec 02, 2002 10:38 AM LIFETIME NON-TOBACCO USER [facility] Oct 21, 2002 10:22 AM LIFETIME NON-TOBACCO USER [facility] Jul 01, 2002 10:42 AM CURRENT SMOKER [facility] Jun 03, 2002 10:47 AM CURRENT SMOKER 1 pack daily..smoking 35 years [facility] May 27, 2002 10:29 AM CURRENT SMOKER one pack [facility] Dec 13, 2000 11:46 AM CURRENT SMOKER 1 pack a day [facility] Advance Directives: All historical and current Section Date Range: From patient's date of to the date document was created. This section includes ALL of a patient's completed or amended [place] Advance and Rescinded Directives. The entries below indicate that a directive exists for the patient, but an actual copy is not included with this document. The data comes from all [place] facilities. Date Advance Directives Provider Source Oct 24, 2021 ADVANCE DIRECTIVE ZO GRADY [facility] Encounter Notes: All associated encounter notes This section contains the clinical notes associated to the Encounter. Date/Time Encounter Note(s) Provider Source May 29, 2024 09:36 AM PSYCHIATRY NOTE: LOCAL TITLE: PSYCHIATRY NOTE STANDARD TITLE: PSYCHIATRY NOTE DATE OF NOTE: MAY 29, 2024@09:36 ENTRY DATE: MAY 29, 2024@09:36:36 AUTHOR: CONTRERAS HAMMOND EXP COSIGNER: URGENCY: STATUS: COMPLETED 20 minutes for encounter, including chart review, interview, charting chart reviewed Pt stable. Again, feels good overall. Usual mental status. Denies depression. Denies elevated mood. Fairly well organized, and again less tangential responses, compared to years ago. No delusional content presented. No PI presented today, although has history of paranoia. Denies AHs/VHs -- he again reports that he last experienced AHs many yrs ago. Denies SI and violent ideation. Again, Reports the same interests, mostly watching TV, again local news/weather, plays guitar. Cognitive exam grossly intact/unchanged. No slowing noted. Good hygiene. Again today, another discussion -- pt again stated that the invega sustenna especially helps w PI and he feels it helped stop AHs. Pt has done well after stop oral risperidone -- see below Denies med side effects. No EPS evident. Denies daytime sedation. Reports psych med compliance Denies alcohol and street drug use. Pt lives w sister Eden. Another sister Bailey is supportive -- [place] transportation brings pt to appts Weight 198.3 lb 05/2024 Active problems - Computerized Problem List is the source for the followin. HTN - Hypertension ([facility] [id number]) 2. Prediabetes 3. Vitamin D Deficiency ([facility] [id number]) 4. Benign Prostatic Hypertrophy without Outflow Obstruction ([facility] [id number]) 5. Family history of cancer of colon 6. History of colonic polyp ([facility]OMED CT 102896733) 7. Hypothyroidism 8. Obesity (SNOMED CT 935738031) 9. Hyperlipidaemia (SNOMED CT 20003718) 10. Nicotine dependence (SNOMED CT 67519606) 11. Schizophrenia (SNOMED CT 10146883) Active Outpatient Medications (including Supplies): Active Outpatient Medications Status 1) ALBUTEROL 90MCG (CFC-F) 200D ORAL INHL INHALE 1 PUFF BY ACTIVE MOUTH TWICE DAILY NEEDED Indication: FOR BRONCHOSPASM 2) CHOLECALCIF 50MCG (D3-2,000UNIT) TAB TAKE ONE TABLET BY ACTIVE MOUTH ONCE DAILY FOR VITAMIN SUPPLEMENTATION Indication: FOR VITAMIN D DEFICIENCY 3) FINASTERIDE 5MG TAB TAKE ONE TABLET BY MOUTH ONCE DAILY FOR ACTIVE PROSTATE 4) LOSARTAN 50MG TAB TAKE ONE TABLET BY MOUTH ONCE DAILY FOR ACTIVE BLOOD PRESSURE/HEART 5) MIRTAZAPINE 30MG TAB TAKE ONE TABLET BY MOUTH AT BEDTIME ACTIVE (FOR DEPRESSION) 6) PALIPERIDONE PALMITATE 234MG/KIT INJECT 1 SYRINGE ACTIVE INTRAMUSCULARLY EVERY FOUR WEEKS Indication: FOR SCHIZOPHRENIA 7) SIMVASTATIN 80MG TAB TAKE ONE TABLET BY MOUTH DAILY ACTIVE 8) TAMSULOSIN HCL 0.4MG CAP TAKE ONE CAPSULE BY MOUTH AT ACTIVE BEDTIME Active Non-VA Medications Status 1) Non-VA LEVOTHYROXINE NA 137MCG TAB 137MCG BY MOUTH ONCE ACTIVE DAILY 9 Total Medications IMP: dsm-5 Schizophrenia -- stable r/o h/o unspecified depressive do -- again, no current sx's -- on remeron PLAN: Careful risk assessment performed. See C-SSRS 08/27 - same today. The pt is probably low risk for suicide or violence -- the patient denied suicidal and violent ideation, but the [facility] Crisis [facility] information and number were reviewed w patient as a precaution. The patient also understands to call 911 or to go to ER in the event of an emergency. CONTINUE INVEGA SUSTENNA 234 MG Q 4 WKS -- the pt again appears to have benefitting by current dose (which is at high end of dosage range) for psychotic symptoms, especially with decreased PI overall pt has been off oral risperidone and remained stable w just the invega sustenna shot above CONTINUE REMERON 30 MG QHS, FOR DEPRESSION, SLEEP -- denies current depression -- patient feels he benefits and he wants to continue current dose, encouraged better compliance As noted previously -- in 2007, pt was changed to risperidone consta then to invega sustenna from prolixin decanoate because he did not want to continue the latter -- see my prior notes for discussion No longer taking melatonin for sleep as note before, pt has not wanted the trazodone recently as noted before, physician [facility] of [facility] follows [facility] The side effect profile of the psychiatric medications was reviewed with the patient. This included discussion of risk of wt gain w remeron w pt. Risk of drug interactions reviewed w pt. Patient demonstrated reasonable understanding of the medication side effects. The benefits of psychiatric medications outweigh risks for this patient. The discussion with patient about treatments including medications involved shared decision making. The patient was educated about the rationale and plan for the psychiatric medications. Medication instructions were reviewed with the patient. Alternatives to treatment were discussed with the patient. The side effect profile of the psychiatric medications was reviewed with the patient. This also included discussion of potential drug interactions associated with psychiatric medication. The patient discussed/verbalized back the understanding of the medication, side effects, and the plan/instructions, and the patient asked good questions. The patient demonstrated reasonable understanding of the medication side effects and the above-mentioned issues. The benefits of psychiatric medications outweigh risks for this patient. The patient consents to medication treatment. I asked the patient to call me or to come to open access if the patient does not like the effect of psychiatric medication or if has side effects with psychiatric medication. The side effect profile of the atypical antipsychotic medication was discussed with the patient. The risk of EPS, weight gain, metabolic syndrome (including risk of diabetes and hyperlipidemia), sedation, dizziness, orthostatic hypotension, falling, and TD with the atypical antipsychotic agent was reviewed with the patient. This included discussion with patient that TD is potentially irreversible. The pt verbalized reasonable understanding of the side effect profile of the atypical antipsychotic medication. The patient agrees to the medication. The benefits of treatment outweigh risks for this patient. The patient's primary care physician follows blood pressure, weights, lipids, glucose Encourage improved diet and exercise return to clinic 4 mo to see me for psychopharm follow up; the patient is seen every 4 wks for the shot; Archana and Luci will have me see pt sooner if needed continue f/u w primary care re medical problems Note pt has [employer] [facility] for transportation and [facility] trasportation Medication Reconciliation: Outpatient: Has the patient been taking medications as documented in the EMLR? YES: The patient has been taking medications as documented in the EMLR. Essential Medication List for Review used to complete this medication reconciliation. INCLUDED IN THIS LIST: Alphabetical list of active outpatient prescriptions dispensed from this [facility] (local) and dispensed from another [facility] or [facility] facility (remote) as well as inpatient orders [...] whether with a VA or non-VA provider. MH AIMS Testing: AIMS (Mental Health Instrument) The patient was evaluated for symptoms of tardive dyskinesia using the AIMS. Total score for items 1-7: 0 /michael/ CONTRERAS HAMMOND MD STAFF PSYCHIATRIST Signed: 05/29/2024 09:47 Receipt Acknowledged By: 05/29/2024 10:25 /michael/ Jennifer Pisano ADVANCED SPA COORDINATOR CONTRERAS HAMMOND
--- OUTSIDE RECORDS SUMMARY | 2024-06-25 18:28 | XMS_ITS | Encounter Summary ---
Author Name [facility] Organization [facility] Address [address] [place] [id number] Care Team Providers Care Publicity Expert Name Role Phone AYDEN CAMPBELL Primary Care [...] PART A Oct 13, 1986 PART A [id number] [phone] HOHOL,NIDHI XAVIER PATIENT MEDICARE (WNR) MEDICARE (M) PART B Oct 13, 1986 PART B [id number] [phone] HOHOL,NIDHI XAVIER PATIENT MEDICARE (WNR) MEDICARE (M) PART A Oct 13, 1986 PART A [id number] HOHOL,NIDHI XAVIER PATIENT MEDICARE (WNR) MEDICARE (M) PART B Oct 13, 1986 PART B [id number] HOHOL,NIDHI XAVIER PATIENT Selected Encounter This section includes the information on record at [place] for the Encounter. Date/Time Encounter Type Encounter Description Reason Pro vider Source Jun 11, 2024 11:18 AM Outpatient Encounter ADMIN PAT ACTIVTIES (MASNONCT) IHE Encounter Template Text not used by [place] Plan of Treatment: Future Appointments (+ 6 months) and Future Tests (+/- 45 days) The Plan of Treatment section includes future care activities for the patient [facility] This section includes future appointments and future orders which are active, pending or scheduled. Future Appointments This section includes appointments that were scheduled to occur 6 months from the date of the Encounter, up to a maximum of 20 appointments. The data comes from all [facility]. Appointment Date/Time Appointment Type Appointme nt Facility Name Jun 19, 2024 09:00 AM AMBULATORY - PSYCHIATRY [facility] Jul 17, 2024 09:00 AM AMBULATORY PSYCHIATRY [facility] Sep 29, 2024 09:30 AM AMBULATORY - PSYCHIATRY [facility] Nov 11, 2024 10:30 AM AMBULATORY [...] of theEncounter. The data comes from all [facility]. Test Date/Time Test Type Test Details Facility Name May 06, 2024 12:00 AM Laboratory - Chemistry Order URINALYSIS URINE [facility] May 06, 2024 12:00 AM Laboratory - Chemistry Order MICROALBUMIN CREATININE RATIO PANEL URINE ([facility]) [facility] Social History: Smoking Status (Most current) and Tobacco Use (All prior to encounter date) This section includes the most current, and the historical, smoking and tobacco- related health factors from the [place] facility where the Encounter took place. Current Smoking Status This section includes the most current smoking, or tobacco-related health factor, from the [place] facility where the Encounter took place. Date/Time Current Smoking Status Beto [email or web address] May 15, 2024 11:17 AM VA-TOBACCO USE NATHALIE RY DAY CIGARETTES [facility] Tobacco Use History This section includes a history of the smoking, or tobacco-related health factors, that were collected on or before the date of the Encounter. The data comes from the [place] facility where the Encounter took place. 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 This section includes ALL of a patient's completed or amended [place] Advance and Rescinded Directives. The entries below indicate that a directive exists for the patient, but an actual copy is not included with this document. The data comes from all [place] facilities. Date Advance Directives Provider Source Oct 24, 2021 ADVANCE DIRECTIVE ZO GRADY [facility] Encounter Notes: All associated encounter notes This section contains the clinical notes associated to the Encounter. Date/Time Encounter Note(s) Provider Source Jun 11, 2024 11:18 AM MEDICATION MGT NOT E: LOCAL TITLE: OUTPATIENT MEDICATION REQUEST STANDARD TITLE: MEDICATION MGT NOTE DATE OF NOTE: JUN 11, 2024@11:18 ENTRY DATE: JUN 11, 2024@11:18:49 AUTHOR: KYLIE OROSCO EXP COSIGNER: URGENCY: STATUS: COMPLETED Medication Request Date of Request: May Is this a New Medication? No TAMSULOSIN HCL 0.4MG CAP [facility]: [id number] (3) *Dosage: 0.4 (MG) Verb: TAKE Dispense Units: 1 Noun: CAPSULE *Route: ORAL *Schedule: QHS (4)Pat Instructions: Indications: SIG: TAKE ONE CAPSULE BY MOUTH AT BEDTIME The following actions were performed: PACT Team RN and Provider added as additional Signers to this request *Please let patient know that this request may take up to 72 hours to process.* /michael/ KYLIE OROSCO Signed: 06/11/2024 11:19 Receipt Acknowledged By: 06/18/2024 09:09 /michael/ Ayden Campbell MD MD PRIMARY CARE PHYSICIAN KYLIE OROSCO [facility]
--- OUTSIDE RECORDS SUMMARY | 2024-06-25 18:28 | XMS_ITS | Continuity of Care Document ---
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 It does not include entries that were removed or entered in error. Problem Status Onset Date Problem Type Date of Resolution Comments Source Hyperlipidaemia (SNOMED CT 76874408) Active 995 Condition [place] Obesity (SNOMED CT 684577123) Active 980 Condition May 15, 2024 Entered By: ANSLEY BAUTISTA Comment: 04/24/24 BMI 33 [place] Schizophrenia (SNOMED CT 85610914) Active 974 Condition Jun 21, 2010 Entered By: EWA HAMMOND Comment: reviewedJul 2017 Entered By: EWA HAMMOND Comment: reviewedAug 2018 Entered By: EWA HAMMOND Comment: reviewedFeb 2020 Entered By: EWA HAMMOND Comment: reviewedDe 2020 Entered By: EWA HAMMOND Comment: reviewedApr 25, 2022 Entered By: EWA HAMMOND Comment: reviewedNov 2023 Entered By: WEA HAMMOND Comment: Reviewed [facility] Paranoid Personality Disorder Inactive 974 Condition 11/28/2010 [facility] Nicotine dependence (SNOMED CT 91287158) Active 960 Condition Jun 18, 2024 Entered By: ANSLEY BAUTISTA Comment: 8cig/day since age 17Jun 18, 2024 Entered By: ANSLEY BAUTISTA Comment: patient reports he had LDCT 02/2024 [place] Benign Prostatic Hypertrophy without Outflow Obstruction (SCT 111281724) Active Condition [place] Family history of cancer of colon Active Condition [facility] History of colonic polyp (SNOMED CT 162734480) Active Condition Jun 02, 2002 Entered By: MAR GAGE Comment: private, polypectomy, colonoscopy in 08/14, f/u in 2007 Entered By: JE MEJIA Comment: Had repeat 05/2007 Dr Isaac repeat 2012Jul 2016 Entered By: RADHIKA COTTER Comment: C'scope 06/2014 -- hyperplastic polypt only. f/u in 2019.Oct 31, 2022 Entered By: Marsha BHATIA Comment: LAST COLONOSCOPY 06/27/2020 REPEAT IN 5 YEARS 2025 [place] HTN - Hypertension (SCT 40389549) Active Condition [facility] Hypothyroidism Active Condition Jun Entered By: JE MEJIA Comment: Sees Dr.Robert Duarte [facility] now on Levoxyl [place] Prediabetes Active Condition May 15, 2024 Entered By: ANSLEY BAUTISTA Comment: 05/08/24 A1c 6.0 [place] Pulmonary emphysema Active Condition [facility] Under care of multiple providers Active Condition Jun 18 025 Entered By: ANSLEY BAUTISTA Comment: community PCP Dr. Alvarez 2024 Entered By: ANSLEY BAUTISTA Comment: Endo Dr. Shravan Duarte [facility] Vitamin D Deficiency ([facility] 76220068) Active Condition [place] Alcohol abuse, continuous drinking behavior Inactive Condition 12/26/2004 [facility] Thrombocytopenia Inactive Condition 05/15/2024 J Carlos HEARN Diagnosis: ICD-10-CM F20.0 Paranoid schizophrenia Active Diagnosis [place] Diagnosis: ICD-10-CM J43.9 Emphysema, unspecified Active Diagnosis [place] Diagnosis: ICD-10-CM I10 Essential (primary) hypertension Active Diagnosis [place] Medications Combined list of outpatient medications from Department of Defense and Veterans Affairs facilities.Medications provided include 1) outpatient medications from the last 15 months, and 2) patient-reported medications. Medication Details Route Status Patient Instructions Prescription Expires Prescription Number Last Dispense Date Ordering Provider Order Date Order Qty Source ALBUTEROL 90MCG/ACTUA T (CFC-F) INHL,ORAL,8 .5GM DOSE COUNTER INHALE 1 PUFF BY MOUTH TWICE DAILY NEEDED FOR [facility] RESPIR ATORY (INHAL ATION) ACTIVE 11/08/2024 [id number] DEANNA DEL ROSARIO F 2023 1 [place] CHOLECALCIF CORTEZ 50MCG (2,000UNIT) TAB TAKE ONE TABLET BY MOUTH ONCE DAILY FOR VITAMIN SUPPLEME NTATION ORAL ACTIVE 01/01/2025 [id number] 4 DEANNA DEL ROSARIO F 2023 100 [place] CHOLECALCIF CORTEZ 50MCG (2,000UNIT) TAB TAKE ONE TABLET BY MOUTH ONCE DAILY FOR VITAMIN SUPPLEME NTATION ORAL DISCONT INUED 11/08/2023 [id number] 4 DEANNA DEL ROSARIO F 2022 100 [place] FINASTERIDE 5MG TAB TAKE ONE TABLET BY MOUTH ONCE DAILY FOR PROSTATE ORAL ACTIVE 11/08/2024 [id number] 4 DEANNA DEL ROSARIO F 2023 90 [place] FINASTERIDE 5MG TAB TAKE ONE TABLET BY MOUTH ONCE DAILY FOR PROSTATE ORAL DISCONT INUED 04/30/2024 [id number] 4 DEANNA DEL ROSARIO F 2023 90 [place] LEVOTHYROXI NE NA 137MCG TAB (SYNTHROID) TAKE ONE TABLET BY MOUTH ONCE DAILY ORAL ACTIVE DEANNA DEL ROSARIO F 2011 [place] LIDOCAINE 4% CREAM,TOP APPLY A SMALL AMOUNT TOPICALL Y NEEDED PRIOR TO INJECTIO N TOPICA L 01/06/2024 [id number] J Carlos HAMMOND 2023 30 [place] LOSARTAN 50MG TAB TAKE ONE TABLET BY MOUTH ONCE DAILY FOR BLOOD PRESSURE /HEART ORAL ACTIVE 11/08/2024 [id number] 5 DEANNA DEL ROSARIO F 2023 90 [place] LOSARTAN 50MG TAB TAKE ONE TABLET BY MOUTH ONCE DAILY FOR BLOOD PRESSURE /HEART ORAL DISCONT INUED 02/07/2024 [id number] 4 DEANNA DEL ROSARIO F 2022 90 [place] MIRTAZAPINE 30MG TAB TAKE ONE TABLET BY MOUTH AT BEDTIME (FOR DEPRESSI ON) ORAL ACTIVE 11/27/2024 [id number] 5 J Carlos HAMMOND 2023 90 [place] MIRTAZAPINE 30MG TAB TAKE ONE TABLET BY MOUTH AT BEDTIME (FOR DEPRESSI ON) ORAL DISCONT INUED 01/26/2024 [id number] 4 J Carlos HAMMOND 2022 90 [place] PALIPERIDON E PALMITATE 234MG/KIT INJ,SUSP,SA INJECT 1 SYRINGE INTRAMUS CULARLY EVERY FOUR WEEKS FOR SCHIZOPH DAJUAN INTRAM USCULA R ACTIVE 02/28/2025 [id number] J Carlos HAMMOND 2023 1 [place] PALIPERIDON E PALMITATE 234MG/KIT INJ,SUSP,SA INJECT 1 SYRINGE INTRAMUS CULARLY EVERY FOUR WEEKS FOR SCHIZOPH DAJUAN INTRAM USCULA R DISCONT INUED (EDIT) 08/28/2024 [id number] 4 J Carlos HAMMOND 2023 1 [place] PALIPERIDON E PALMITATE 234MG/KIT INJ,SUSP,SA INJECT 1 SYRINGE INTRAMUS CULARLY EVERY FOUR WEEKS FOR SCHIZOPH DAJUAN INTRAM USCULA R DISCONT INUED (EDIT) 01/26/2024 [id number] 4 J Carlos HAMMOND 2022 1 [place] RISPERIDONE 0.5MG TAB TAKE ONE-HALF TABLET BY MOUTH AT BEDTIME FOR SCHIZOPH DAJUAN ORAL DISCONT INUED BY PROVIDE R 11/27/2024 [id number] J Carlos HAMMOND 2023 15 [place] RISPERIDONE 1MG TAB TAKE ONE-HALF TABLET BY MOUTH AT BEDTIME FOR SCHIZOPH DAJUAN ORAL DISCONT INUED (EDIT) 08/28/2024 [id number] 4 J Carlos HAMMOND 2023 15 [place] RISPERIDONE 1MG TAB TAKE ONE-HALF TABLET BY MOUTH AT BEDTIME FOR SCHIZOPH DAJUAN ORAL DISCONT INUED 01/26/2024 [id number] 4 J Carlos HAMMOND 2022 15 [place] SIMVASTATIN 80MG TAB TAKE ONE TABLET BY MOUTH DAILY ORAL ACTIVE 05/12/2025 [id number] 5 Yogi BAUTISTA 2024 90 [place] SIMVASTATIN 80MG TAB TAKE ONE TABLET BY MOUTH DAILY ORAL DISCONT INUED 05/10/2024 [id number] 4 NIDHIEUGENEVeronikaDEANNA RMEN F 2023 90 [place] TAMSULOSIN HCL 0.4MG CAP TAKE ONE CAPSULE BY MOUTH AT BEDTIME ORAL ACTIVE 06/19/2025 [id number] 5 AYDEN CAMPBELL 2024 90 [place] TAMSULOSIN HCL 0.4MG CAP TAKE ONE CAPSULE BY MOUTH AT BEDTIME ORAL DISCONT INUED 01/28/2025 [id number] 5 NIDHIDEANNA CALLAWAY RMEN F 2023 30 [place] TAMSULOSIN HCL 0.4MG CAP TAKE ONE CAPSULE BY MOUTH AT BEDTIME ORAL DISCONT INUED 09/06/2024 [id number] 4 NIDHIDEANNA CALLAWAY RMEN F 2023 30 [place] TAMSULOSIN HCL 0.4MG CAP TAKE ONE CAPSULE BY MOUTH AT BEDTIME ORAL DISCONT INUED 02/07/2024 [id number] 4 NIDHIEUGENEVeronikaDEANNA RMEN F 2022 30 [place] Immunizations Combined list of available immunizations from the Department of Defense and Veterans Affairs facilities. Immunization Series Date Given Administered By Site Reaction Lot Number CVX Code Drug Teaching Music Lessons Status Comments Source COVID-19 (PFIZER), MRNA, LNP-S, PF, 30 MCG/0.3 ML DOSE 2 2020 208 complet ed [facility] COVID-19 (PFIZER), MRNA, LNP-S, PF, 30 MCG/0.3 ML DOSE 1 2020 208 complet ed [facility] INFLUENZA, SEASONAL, INJECTABLE 2017 141 complet ed [facility] ZOSTER RECOMBINANT 2 2017 187 complet ed [place] PNEUMOCOCCAL POLYSACCHARID E PPV23 2017 33 complet ed [place] ZOSTER RECOMBINANT 1 2017 187 complet ed [place] PNEUMOCOCCAL CONJUGATE PCV 13 2016 133 complet ed [place] TDAP 2016 115 complet ed Site: Left Deltoid [facility] IELD FLU,3 YRS (HISTORICAL) 2015 88 complet ed [employer] [facility] FLU,3 YRS (HISTORICAL) 2015 88 complet ed [facility] FLU,3 YRS (HISTORICAL) 2014 88 complet ed [facility] FLU,3 YRS (HISTORICAL) 2013 88 complet ed [facility] FLU,3 YRS (HISTORICAL) 2012 88 complet ed [facility] FLU VACCINE (HISTORICAL) 2000 LEV,MAR 88 complet ed [facility] IELD INFLUENZA, UNSPECIFIED FORMULATION 1997 CL SHEA 88 comple t ed [facility]STIT[facility] IELD Results Combined list of recent chemistry, hematology and other laboratory results from Department of Defense and Veterans Affairs, ranging from 15 months to all on record, depending upon the facility. Order Name Results Value Reference Range Date Interpretation Specimen Comments Source BASIC METABOLIC PANEL (fasting) UREA NITROGEN [MASS/VOLUM E] IN SERUM OR PLASMA 21 mg/dL 7 - 25 05/08 Specimen Type: SERUM No comment entered. Ordering Provider: TAMMY BAUTISTA Report Released Date/Time: May 06, 2024 12:32 PM Reporting Lab: [facility] [place] [facility] [address] [facility] [address] Performing Lab: [place] [facility] [place] [facility] [address] [facility] [address] [place] [facility] [place] [facility] BASIC METABOLIC PANEL (fasting) GLUCOSE [MASS/VOLUM E] IN SERUM OR PLASMA 99 mg/dL 65 - 100 05/08 Specimen Type: SERUM No comment entered. Ordering Provider: TAMMY BAUTISTA Report Released Date/Time: May 06, 2024 12:32 PM Reporting Lab: [facility] [place] [facility] [address] [facility] [address] Performing Lab: [facility] [place] [facility] [address] [facility] [address] [facility] BASIC METABOLIC PANEL (fasting) SODIUM [MOLES/VOLU ME] IN SERUM OR PLASMA 142 mmol/L 135 - 145 05/08 Specimen Type: SERUM No comment entered. Ordering Provider: TAMMY BAUTISTA Report Released Date/Time: May 06, 2024 12:32 PM Reporting Lab: [place] [facility] [address] [facility] [address] Performing Lab: [facility] [address] [facility] [address] [facility]N [facility] BASIC METABOLIC PANEL (fasting) POTASSIUM [MOLES/VOLU ME] IN SERUM OR PLASMA 4.2 mmol/L 3.5 - 5.0 05/08 Specimen Type: SERUM No comment entered. Ordering Provider: TAMMY BAUTISTA Report Released Date/Time: May 06, 2024 12:32 PM Reporting Lab: [facility] TRN [facility] [address] [facility] [address] Performing Lab: [place] [facility] [address] [facility] [address] [facility] BASIC METABOLIC PANEL (fasting) CHLORIDE [MOLES/VOLU ME] IN SERUM OR PLASMA 110 mmol/L 100 - 110 05/08 Specimen Type: SERUM No comment entered. Ordering Provider: TAMMY BAUTISTA Report Released Date/Time: May 06, 2024 12:32 PM Reporting Lab: [place] [facility] [address] [facility] [address] Performing Lab: [place] [facility] [address] [facility] [address] [facility]RE[facility]ITALN [facility] BASIC METABOLIC PANEL (fasting) CARBON DIOXIDE, TOTAL [MOLES/VOLU ME] IN SERUM OR PLASMA 25 meq/L 20 - 30 05/08 Specimen Type: SERUM No comment entered. Ordering Provider: TAMMY BAUTISTA Report Released Date/Time: May 06, 2024 12:32 PM Reporting Lab: [facility] [place] [facility] [address] [facility] [address] Performing Lab: [facility] [place] [facility] [address] [facility] [address] [facility] [place] [facility] BASIC METABOLIC PANEL (fasting) CREATININE [MASS/VOLUM E] IN SERUM OR PLASMA 0.92 mg/dL 0.50 - 1.40 05/08 Specimen Type: SERUM No comment entered. Ordering Provider: TAMMY BAUTISTA Report Released Date/Time: May 06, 2024 12:32 PM Reporting Lab: [facility] [place] [facility] [address] [facility] [address] Performing Lab: [place] [facility] [place] [facility] [address] [facility] [address] [facility] [place] [facility] BASIC METABOLIC PANEL (fasting) GLOMERULAR FILTRATION RATE/1.73 SQ M.PREDICTED [VOLUME RATE/AREA] IN SERUM, PLASMA OR BLOOD BY CREATININE- BASED FORMULA (CKD-EPI 2020) 87 mL/min 60 05/08 Specimen Type: SERUM No comment entered. Ordering Provider: TAMMY BAUTISTA Report Released Date/Time: May 06, 2024 12:32 PM Reporting Lab: [facility] [place] [facility] [address] [facility] [address] Performing Lab: [place] [facility] [place] [facility] [address] [facility] [address] [facility] [place] [facility] CBC AND DIFF (AUTO) LEUKOCYTES [#/VOLUME] IN BLOOD BY AUTOMATED COUNT 6.38 10*3/u L 4.50 - 11.00 05/08 Specimen Type: BLOOD No comment entered. Ordering Provider: TAMMY BAUTISTA Report Released Date/Time: May 06, 2024 12:32 PM Reporting Lab: [facility] [place] [facility] [address] [facility] [address] Performing Lab: [facility] [place] [facility] [address] [facility] [address] [place] [facility] [place] [facility] CBC AND DIFF (AUTO) ERYTHROCYTE S [#/VOLUME] IN BLOOD BY AUTOMATED COUNT 4.67 10*6/u L 4.23 - 5.66 05/08 Specimen Type: BLOOD No comment entered. Ordering Provider: TAMMY BAUTISTA Report Released Date/Time: May 06, 2024 12:32 PM Reporting Lab: [facility] [place] [address] [address] Performing Lab: [facility] [place] [address] [address] [place] [facility] [place] [facility] CBC AND DIFF (AUTO) HEMOGLOBIN [MASS/VOLUM E] IN BLOOD 14.7 g/dL 12.8 - 17 05/08 Specimen Type: BLOOD No comment entered. Ordering Provider: TAMMY BAUTISTA Report Released Date/Time: May 06, 2024 12:32 PM Reporting Lab: [facility] [place] [address] [address] Performing Lab: [place] [facility] [place] [address] [address] [facility] [place] [facility] CBC AND DIFF (AUTO) HEMATOCRIT [VOLUME FRACTION] OF BLOOD BY AUTOMATED COUNT 45.2 39.2 - 50.4 05/08 Specimen Type: BLOOD No comment entered. Ordering Provider: TAMMY BAUTISTA Report Released Date/Time: May 06, 2024 12:32 PM Reporting Lab: [facility] [place] [address] [address] Performing Lab: [facility] [place] [address] [address] [facility] [place] [facility] CBC AND DIFF (AUTO) MCV [ENTITIC VOLUME] BY AUTOMATED COUNT 96.8 fL 82 - 99 05/08 Specimen Type: BLOOD No comment entered. Ordering Provider: TAMMY BAUTISTA Report Released Date/Time: May 06, 2024 12:32 PM Reporting Lab: [facility] [place] [address] [address] Performing Lab: [facility] [place] [facility] [address] [facility] [address] [facility] CBC AND DIFF (AUTO) MCHC [MASS/VOLUM E] BY AUTOMATED COUNT 32.5 g/dL 30.8 - 35.1 05/08 Specimen Type: BLOOD No comment entered. Ordering Provider: TAMMY BAUTISTA Report Released Date/Time: May 06, 2024 12:32 PM Reporting Lab: [facility] [address] [facility] [address] Performing Lab: [facility] [facility] [address] [facility] [address] [facility] [place] [facility] CBC AND DIFF (AUTO) PLATELETS [#/VOLUME] IN BLOOD BY AUTOMATED COUNT 105 10*3/u L 140 - 360 05/08 L Specimen Type: BLOOD No comment entered. Ordering Provider: TAMMY BAUTISTA Report Released Date/Time: May 06, 2024 12:32 PM Reporting Lab: [facility] [address] [place] [address] Performing Lab: [facility] [place] [address] [address] [place] [facility] [place] [facility] CBC AND DIFF (AUTO) ERYTHROCYTE DISTRIBUTIO N WIDTH [RATIO] BY AUTOMATED COUNT 13.5 12.0 - 16.0 05/08 Specimen Type: BLOOD No comment entered. Ordering Provider: TAMMY BAUTISTA Report Released Date/Time: May 06, 2024 12:32 PM Reporting Lab: [facility] [address] [facility] [address] Performing Lab: [facility] [address] [place] [address] [facility] CBC AND DIFF (AUTO) MONOCYTES [#/VOLUME] IN BLOOD BY AUTOMATED COUNT 0.37 10*3/u L 0.30 - 1.10 05/08 Specimen Type: BLOOD No comment entered. Ordering Provider: TAMMY BAUTISTA Report Released Date/Time: May 06, 2024 12:32 PM Reporting Lab: [facility] [address] [facility] [address] Performing Lab: [facility] [place] [address] [facility] [address] [facility] [place] CBC AND DIFF (AUTO) MCH [ENTITIC MASS] BY AUTOMATED COUNT 31.5 pg 26.2 - 32.6 05/08 Specimen Type: BLOOD No comment entered. Ordering Provider: TAMMY BAUTISTA Report Released Date/Time: May 06, 2024 12:32 PM Reporting Lab: [facility] [place] [facility] [address] [facility] [address] Performing Lab: [facility] [place] [address] [address] [facility] [place] [facility] CBC AND DIFF (AUTO) NEUTROPHILS /100 LEUKOCYTES IN BLOOD BY AUTOMATED COUNT 67.1 43.7 - 75.8 05/08 Specimen Type: BLOOD No comment entered. Ordering Provider: TAMMY BAUTISTA Report Released Date/Time: May 06, 2024 12:32 PM Reporting Lab: [facility] [place] [address] [address] Performing Lab: [facility] [place] [facility] [address] [facility] [address] [facility] [place] [facility] CBC AND DIFF (AUTO) LYMPHOCYTES /100 LEUKOCYTES IN BLOOD BY AUTOMATED COUNT 23.0 14.0 - 42.3 05/08 Specimen Type: BLOOD No comment entered. Ordering Provider: TAMMY BAUTISTA Report Released Date/Time: May 06, 2024 12:32 PM Reporting Lab: [facility] [place] [facility] [address] [facility] [address] Performing Lab: [facility] [place] [address] [address] [facility] [place] [facility] CBC AND DIFF (AUTO) MONOCYTES/1 00 LEUKOCYTES IN BLOOD BY AUTOMATED COUNT 5.8 5.1 - 13.7 05/08 Specimen Type: BLOOD No comment entered. Ordering Provider: TAMMY BAUTISTA Report Released Date/Time: May 06, 2024 12:32 PM Reporting Lab: [facility] [place] [facility] [address] [facility] [address] Performing Lab: [facility] [place] [facility] [address] [facility] [address] [facility] [place] [facility] CBC AND DIFF (AUTO) EOSINOPHILS /100 LEUKOCYTES IN BLOOD BY AUTOMATED COUNT 3.3 0.4 - 6.8 05/08 Specimen Type: BLOOD No comment entered. Ordering Provider: TAMMY BAUTISTA Report Released Date/Time: May 06, 2024 12:32 PM Reporting Lab: [facility] [place] [address] [address] Performing Lab: [facility] [place] [address] [address] [facility] [place] [facility] CBC AND DIFF (AUTO) BASOPHILS/1 00 LEUKOCYTES IN BLOOD BY AUTOMATED COUNT 0.8 0.1 - 2.0 05/08 Specimen Type: BLOOD No comment entered. Ordering Provider: TAMMY BAUTISTA Report Released Date/Time: May 06, 2024 12:32 PM Reporting Lab: [facility] [place] [address] [address] Performing Lab: [facility] [place] [address] [address] [facility] [place] [facility] CBC AND DIFF (AUTO) NEUTROPHILS [#/VOLUME] IN BLOOD BY AUTOMATED COUNT 4.28 10*3/u L 2.20 - 7.60 05/08 Specimen Type: BLOOD No comment entered. Ordering Provider: TAMMY BAUTISTA Report Released Date/Time: May 06, 2024 12:32 PM Reporting Lab: [facility] [place] [facility] [address] [facility] [address] Performing Lab: [facility] [place] [address] [address] [facility] [place] CBC AND DIFF (AUTO) LYMPHOCYTES [#/VOLUME] IN BLOOD BY AUTOMATED COUNT 1.47 10*3/u L 1.00 - 3.20 05/08 Specimen Type: BLOOD No comment entered. Ordering Provider: TAMMY BAUTISTA Report Released Date/Time: May 06, 2024 12:32 PM Reporting Lab: [facility] [place] [address] [address] Performing Lab: [facility] [place] [address] [address] [facility] [place] [facility] CBC AND DIFF (AUTO) EOSINOPHILS [#/VOLUME] IN BLOOD BY AUTOMATED COUNT 0.21 10*3/u L 0.03 - 0.44 05/08 Specimen Type: BLOOD No comment entered. Ordering Provider: TAMMY BAUTISTA Report Released Date/Time: May 06, 2024 12:32 PM Reporting Lab: [facility] [place] [address] [address] Performing Lab: [facility] [place] [address] [address] [facility] [place] [facility] CBC AND DIFF (AUTO) BASOPHILS [#/VOLUME] IN BLOOD BY AUTOMATED COUNT 0.05 10*3/u L 0.01 - 0.13 05/08 Specimen Type: BLOOD No comment entered. Ordering Provider: TAMMY BAUTISTA Report Released Date/Time: May 06, 2024 12:32 PM Reporting Lab: [facility] [place] [address] [address] Performing Lab: [facility] [place] [address] [address] [facility] [place] [facility] CBC AND DIFF (AUTO) IMMATURE GRANULOCYTE S/100 LEUKOCYTES IN BLOOD BY AUTOMATED COUNT 0.0 0.0 - 0.7 05/08 Specimen Type: BLOOD No comment entered. Ordering Provider: TAMMY BAUTISTA Report Released Date/Time: May 06, 2024 12:32 PM Reporting Lab: [facility] [place] [address] [address] Performing Lab: [facility] [address] [facility] [address] [facility] CBC AND DIFF (AUTO) IMMATURE GRANULOCYTE S [#/VOLUME] IN BLOOD 0.00 10*3/u L 0.00 - 0.06 05/08 Specimen Type: BLOOD No comment entered. Ordering Provider: TAMMY BAUTISTA Report Released Date/Time: May 06, 2024 12:32 PM Reporting Lab: [facility] [address] [facility] [address] Performing Lab: [address] [address] [facility] CBC AND DIFF (AUTO) NRBC % 0.0 0.0 - 0.0 05/08 Specimen Type: BLOOD No comment entered. Ordering Provider: TAMMY BAUTISTA Report Released Date/Time: May 06, 2024 12:32 PM Reporting Lab: [facility] [address] [address] Performing Lab: [facility] [address] [address] [facility] CBC AND DIFF (AUTO) NRBC, ABS 0.00 10*3/u L 0.00 - 0.00 05/08 Specimen Type: BLOOD No comment entered. Ordering Provider: TAMMY BAUTISTA Report Released Date/Time: May 06, 2024 12:32 PM Reporting Lab: [facility]USE[address] [address] Performing Lab: [facility] [address] [address] [facility] HEMOGLOBI N A1C PANEL HEMOGLOBIN A1C/HEMOGLO BIN.TOTAL IN BLOOD BY HPLC 6.0 4.0 - 5.6 05/08 H Specimen Type: BLOOD Comment: Values obtained from A1C measurement s can vary. For atypical A1C assays, a reported value of 7.0 could actually be between 6.72 and 7.28 if measured by a reference method. A reported value of 9.0 could actually be between 8.73 and 9.27. Ref: http://www. ngsp.org/[place] Pdata.asp Ordering Provider: TAMMY BAUTISTA Report Released Date/Time: May 06, 2024 12:32 PM Reporting Lab: [facility] [address] [address] Performing Lab: [place] [facility] [address] [address] [facility] [place] [facility] LIPID PANEL FASTING CHOLESTEROL [MASS/VOLUM E] IN SERUM OR PLASMA 133 mg/dL 05/08 Specimen Type: SERUM No comment entered. Ordering Provider: TAMMY BAUTISTA Report Released Date/Time: May 06, 2024 12:32 PM Reporting Lab: [facility] [place] [address] [address] Performing Lab: [facility] W[facility] [address] [address] [facility]ITALN [facility] LIPID PANEL FASTING TRIGLYCERID E [MASS/VOLUM E] IN SERUM OR PLASMA 79 mg/dL 0 - 150 05/08 Specimen Type: SERUM No comment entered. Ordering Provider: TAMMY BAUTISTA Report Released Date/Time: May 06, 2024 12:32 PM Reporting Lab: [facility] [place] [address] [address] Performing Lab: [facility] [place] [address] [address] [facility]ITALTRN [place] [facility] LIPID PANEL FASTING CHOLESTEROL IN LDL [MASS/VOLUM E] IN SERUM OR PLASMA BY CALCULATION 73 mg/dL 0 - 129 05/08 Specimen Type: SERUM No comment entered. Ordering Provider: TAMMY BAUTISTA Report Released Date/Time: May 06, 2024 12:32 PM Reporting Lab: [facility] [place] [address] [address] Performing Lab: [place] [facility] [address] [address] [facility] [place] [facility] LIPID PANEL FASTING CHOLESTEROL .TOTAL/CHOL ESTEROL IN HDL [MASS RATIO] IN SERUM OR PLASMA 3.0 05/08 Specimen Type: SERUM No comment entered. Ordering Provider: TAMMY BAUTISTA Report Released Date/Time: May 06, 2024 12:32 PM Reporting Lab: [place] [facility] [place] [address] [address] Performing Lab: [place] [address] [address] [facility] LIPID PANEL FASTING CHOLESTEROL IN HDL [MASS/VOLUM E] IN SERUM OR PLASMA 44 mg/dL 40 - 60 05/08 Specimen Type: SERUM No comment entered. Ordering Provider: TAMMY BAUTISTA Report Released Date/Time: May 06, 2024 12:32 PM Reporting Lab: [place] [facility] [place] [address] [address] Performing Lab: [place] [facility] [address] [address] [facility]N [facility] LIVER FUNCTION PROTEIN [MASS/VOLUM E] IN SERUM OR PLASMA 7.5 g/dL 6.0 - 8.3 05/08 Specimen Type: SERUM No comment entered. Ordering Provider: TAMMY BAUTISTA Report Released Date/Time: May 06, 2024 12:32 PM Reporting Lab: [place] [facility] [place] [address] [address] Performing Lab: [place] [facility] [address] [address] [facility]N [facility] LIVER FUNCTION ALBUMIN [MASS/VOLUM E] IN SERUM OR PLASMA 4.1 g/dL 3.5 - 5.0 05/08 Specimen Type: SERUM No comment entered. Ordering Provider: TAMMY BAUTISTA Report Released Date/Time: May 06, 2024 12:32 PM Reporting Lab: [place] [facility] [place] [address] [address] Performing Lab: [facility] [place] [facility] [address] [facility] [address] [facility] [place] [facility] LIVER FUNCTION ALKALINE PHOSPHATASE [ENZYMATIC ACTIVITY/VO LUME] IN SERUM OR PLASMA 76 U/L 40 - 150 05/08 Specimen Type: SERUM No comment entered. Ordering Provider: TAMMY BAUTISTA Report Released Date/Time: May 06, 2024 12:32 PM Reporting Lab: [facility] [place] [facility] [address] [facility] [address] Performing Lab: [facility] [place] [facility] [address] [facility] [address] [facility] [facility] LIVER FUNCTION ASPARTATE AMINOTRANSF ERASE [ENZYMATIC ACTIVITY/VO LUME] IN SERUM OR PLASMA 18 U/L 5 - 34 05/08 Specimen Type: SERUM No comment entered. Ordering Provider: TAMMY BAUTISTA Report Released Date/Time: May 06, 2024 12:32 PM Reporting Lab: [facility] [place] [facility] [address] [facility] [address] Performing Lab: [facility] [place] [facility] [address] [facility] [address] [facility] [facility] LIVER FUNCTION ALANINE AMINOTRANSF ERASE [ENZYMATIC ACTIVITY/VO LUME] IN SERUM OR PLASMA 21 U/L 05/08 Specimen Type: SERUM No comment entered. Ordering Provider: TAMMY BAUTISTA Report Released Date/Time: May 06, 2024 12:32 PM Reporting Lab: [facility] [place] [facility] [address] [facility] [address] Performing Lab: [facility] [place] [facility] [address] [facility] [address] [facility] [place] [facility] LIVER FUNCTION BILIRUBIN.T OTAL [MASS/VOLUM E] IN SERUM OR PLASMA 0.4 mg/dL 0.2 - 1.2 05/08 Specimen Type: SERUM No comment entered. Ordering Provider: TAMMY BAUTISTA Report Released Date/Time: May 06, 2024 12:32 PM Reporting Lab: [facility] [place] [facility] [address] [facility] [address] Performing Lab: [facility] [place] [facility] [address] [facility] [address] [facility] [place] [facility] TSH THYROTROPIN [UNITS/VOLU ME] IN SERUM OR PLASMA 2.55 u[IU]/ mL 0.35 - 5.00 05/08 Specimen Type: SERUM No comment entered. Ordering Provider: TAMMY BAUTISTA Report Released Date/Time: May 06, 2024 12:32 PM Reporting Lab: [facility] TRN [facility] [address] [facility] [address] Performing Lab: [facility] W[facility]N [facility]ITAL[facility] [address] [facility] [address] [facility]ITALN [facility] BASIC METABOLIC PANEL (fasting) UREA NITROGEN [MASS/VOLUM E] IN SERUM OR PLASMA 12 mg/dL 7 - 25 10/31 Specimen Type: SERUM No comment entered. Ordering Provider: CHEY DEL ROSARIO Report Released Date/Time: Oct 24, 2023 09:15 AM Reporting Lab: [facility]ITALTRN [place] [facility] [address] [facility] [address] Performing Lab: [facility]ITALTRN [facility] [address] [address] [place] BASIC METABOLIC PANEL (fasting) GLUCOSE [MASS/VOLUM E] IN SERUM OR PLASMA 110 mg/dL 65 - 100 10/31 H Specimen Type: SERUM No comment entered. Ordering Provider: CHEY DEL ROSARIO Report Released Date/Time: Oct 24, 2023 09:15 AM Reporting Lab: [facility] TRN [facility]ITAL[facility] [address] [facility] [address] Performing Lab: [facility]ITALTRN [facility]ITALUSE[address] [address] [place] BASIC METABOLIC PANEL (fasting) SODIUM [MOLES/VOLU ME] IN SERUM OR PLASMA 140 mmol/L 135 - 145 10/31 Specimen Type: SERUM No comment entered. Ordering Provider: CHEY DEL ROSARIO Report Released Date/Time: Oct 24, 2023 09:15 AM Reporting Lab: [facility]ITALTRN [facility] [address] [facility] [address] Performing Lab: [facility] [address] [facility] [address] [place] BASIC METABOLIC PANEL (fasting) POTASSIUM [MOLES/VOLU ME] IN SERUM OR PLASMA 4.1 mmol/L 3.5 - 5.0 10/31 Specimen Type: SERUM No comment entered. Ordering Provider: CHEY DEL ROSARIO Report Released Date/Time: Oct 24, 2023 09:15 AM Reporting Lab: [facility] [address] [facility] [address] Performing Lab: [facility] [address] [facility] [address] [place] BASIC METABOLIC PANEL (fasting) CHLORIDE [MOLES/VOLU ME] IN SERUM OR PLASMA 107 mmol/L 100 - 110 10/31 Specimen Type: SERUM No comment entered. Ordering Provider: CHEY DEL ROSARIO Report Released Date/Time: Oct 24, 2023 09:15 AM Reporting Lab: [facility] [address] [facility] [address] Performing Lab: [facility]ENTERRELMORE COMMUN[facility] HOSPITALN [facility] [address] [facility] [address] [place] BASIC METABOLIC PANEL (fasting) CARBON DIOXIDE, TOTAL [MOLES/VOLU ME] IN SERUM OR PLASMA 24 meq/L 20 - 30 10/31 Specimen Type: SERUM No comment entered. Ordering Provider: CHEY DEL ROSARIO Report Released Date/Time: Oct 24, 2023 09:15 AM Reporting Lab: [facility] [address] [facility] [address] Performing Lab: [facility] [address] [address] [place] BASIC METABOLIC PANEL (fasting) CREATININE [MASS/VOLUM E] IN SERUM OR PLASMA 0.98 mg/dL 0.50 - 1.40 10/31 Specimen Type: SERUM No comment entered. Ordering Provider: CHEY DEL ROSARIO Report Released Date/Time: Oct 24, 2023 09:15 AM Reporting Lab: [address] [address] Performing Lab: [address] [address] [place] BASIC METABOLIC PANEL (fasting) GLOMERULAR FILTRATION RATE/1.73 SQ M.PREDICTED [VOLUME RATE/AREA] IN SERUM, PLASMA OR BLOOD BY CREATININE- BASED FORMULA (CKD-EPI 2020) 81 mL/min 60 10/31 Specimen Type: SERUM No comment entered. Ordering Provider: CHEY DEL ROSARIO Report Released Date/Time: Oct 24, 2023 09:15 AM Reporting Lab: [facility] [address] [address] Performing Lab: [address] [address] [employer] [place] HEMOGLOBI N A1C PANEL HEMOGLOBIN A1C/HEMOGLO BIN.TOTAL IN BLOOD BY HPLC 5.5 4.0 - 5.6 10/31 Specimen Type: BLOOD Comment: Values obtained from A1C measurement s can vary. For atypical A1C assays, a reported value of 7.0 could actually be between 6.72 and 7.28 if measured by a reference method. A reported value of 9.0 could actually be between 8.73 and 9.27. Ref: http://www. ngsp.org/[place] Pdata.asp Ordering Provider: CHEY DEL ROSARIO Report Released Date/Time: Oct 24, 2023 09:15 AM Reporting Lab: [address] [address] Performing Lab: [address] [address] [facility] [place] LIPID PANEL FASTING CHOLESTEROL [MASS/VOLUM E] IN SERUM OR PLASMA 116 mg/dL 10/31 Specimen Type: SERUM No comment entered. Ordering Provider: CHEY DEL ROSARIO Report Released Date/Time: Oct 24, 2023 09:15 AM Reporting Lab: [address] [address] Performing Lab: [place] [facility] [place] [facility] [address] [facility] [address] [place] LIPID PANEL FASTING TRIGLYCERID E [MASS/VOLUM E] IN SERUM OR PLASMA 74 mg/dL 0 - 150 10/31 Specimen Type: SERUM No comment entered. Ordering Provider: CHEY DEL ROSARIO Report Released Date/Time: Oct 24, 2023 09:15 AM Reporting Lab: [place] [facility] [place] [facility] [address] [facility] [address] Performing Lab: [place] [facility] [place] [facility] [address] [facility] [address] [place] LIPID PANEL FASTING CHOLESTEROL IN LDL [MASS/VOLUM E] IN SERUM OR PLASMA BY CALCULATION 64 mg/dL 0 - 129 10/31 Specimen Type: SERUM No comment entered. Ordering Provider: CHEY DEL ROSARIO Report Released Date/Time: Oct 24, 2023 09:15 AM Reporting Lab: [facility] [place] [facility] [address] [facility] [address] Performing Lab: [place] [address] [address] [place] LIPID PANEL FASTING CHOLESTEROL .TOTAL/CHOL ESTEROL IN HDL [MASS RATIO] IN SERUM OR PLASMA 3.1 10/31 Specimen Type: SERUM No comment entered. Ordering Provider: CHEY DEL ROSARIO Report Released Date/Time: Oct 24, 2023 09:15 AM Reporting Lab: [facility] [place] [facility] [address] [facility] [address] Performing Lab: [place] [address] [address] [place] LIPID PANEL FASTING CHOLESTEROL IN HDL [MASS/VOLUM E] IN SERUM OR PLASMA 37 mg/dL 40 - 60 10/31 L Specimen Type: SERUM No comment entered. Ordering Provider: CHEY DEL ROSARIO Report Released Date/Time: Oct 24, 2023 09:15 AM Reporting Lab: [facility] [place] [address] [address] Performing Lab: [facility] [place] [facility] [address] [facility] [address] [place] LIVER FUNCTION PROTEIN [MASS/VOLUM E] IN SERUM OR PLASMA 7.0 g/dL 6.0 - 8.3 10/31 Specimen Type: SERUM No comment entered. Ordering Provider: CHEY DEL ROSARIO Report Released Date/Time: Oct 24, 2023 09:15 AM Reporting Lab: [facility] [place] [facility] [address] [facility] [address] Performing Lab: [place] [facility] [facility] [address] [facility] [address] [place] LIVER FUNCTION ALBUMIN [MASS/VOLUM E] IN SERUM OR PLASMA 4.2 g/dL 3.5 - 5.0 10/31 Specimen Type: SERUM No comment entered. Ordering Provider: CHEY DEL ROSARIO Report Released Date/Time: Oct 24, 2023 09:15 AM Reporting Lab: [facility]RL TRN [facility]ITAL[facility] [address] [facility] [address] Performing Lab: [facility]RL W[facility]N [facility]ITAL[facility] [address] [facility] [address] [place] LIVER FUNCTION ALKALINE PHOSPHATASE [ENZYMATIC ACTIVITY/VO LUME] IN SERUM OR PLASMA 86 U/L 40 - 150 10/31 Specimen Type: SERUM No comment entered. Ordering Provider: CHEY DEL ROSARIO Report Released Date/Time: Oct 24, 2023 09:15 AM Reporting Lab: [facility] TRN [facility] [address] [address] Performing Lab: [facility] [place] [address] [address] [place] LIVER FUNCTION ASPARTATE AMINOTRANSF ERASE [ENZYMATIC ACTIVITY/VO LUME] IN SERUM OR PLASMA 22 U/L 5 - 34 10/31 Specimen Type: SERUM No comment entered. Ordering Provider: CHEY DEL ROSARIO Report Released Date/Time: Oct 24, 2023 09:15 AM Reporting Lab: [facility] TRN [facility]ITALUSE[address] [address] Performing Lab: [place] [facility] [place] [facility] [address] [facility] [address] [place] LIVER FUNCTION ALANINE AMINOTRANSF ERASE [ENZYMATIC ACTIVITY/VO LUME] IN SERUM OR PLASMA 23 U/L 10/31 Specimen Type: SERUM No comment entered. Ordering Provider: CHEY DEL ROSARIO Report Released Date/Time: Oct 24, 2023 09:15 AM Reporting Lab: [facility] [place] [facility] [address] [facility] [address] Performing Lab: [facility] [place] [facility] [address] [facility] [address] [place] LIVER FUNCTION BILIRUBIN.T OTAL [MASS/VOLUM E] IN SERUM OR PLASMA 0.8 mg/dL 0.2 - 1.2 10/31 Specimen Type: SERUM No comment entered. Ordering Provider: CHEY DEL ROSARIO Report Released Date/Time: Oct 24, 2023 09:15 AM Reporting Lab: [place] [facility] [place] [facility] [address] [facility] [address] Performing Lab: [facility] [facility] [address] [facility] [address] [place] Vital Signs Combined list of inpatient and outpatient Vital Signs from Department of Defense and Veterans Affairs, ranging from 12 months to all on record, depending upon the facility. Vital Sign Value Date Comments Source SYSTOLIC BLOOD PRESSURE 146 06/20/19 25 09:17:53 [facility] [place] [facility] DIASTOLIC BLOOD PRESSURE 78 025 09:17:53 [facility] [place] [facility] PULSE OXIMETRY 98 06/19/2024 09:17:53 [facility] [place] [facility] WEIGHT 200 06/19/2024 09:17:53 [facility] [place] [facility] BMI 34 kg/m2 06/19/2024 09:17:53 [facility] [place] [facility] PULSE 59 06/19/2024 09:17:53 [facility] [place] [facility] RESPIRATION 16 06/19/2024 09:17:53 [facility] [place] [facility] SYSTOLIC BLOOD PRESSURE 150 05/22/19 25 09:07:19 [facility] [place] [facility] DIASTOLIC BLOOD PRESSURE 86 025 09:07:19 [facility] [place] [facility] PULSE OXIMETRY 98 05/22/2024 09:07:19 [facility] [place] [facility] WEIGHT 198.3 05/22/2024 09:07:19 [facility] [place] [facility] BMI 34 kg/m2 05/22/2024 09:07:19 [facility] [place] [facility] TEMPERATURE 97.7 05/22/2024 09:07:19 [facility] [place] [facility] PULSE 64 05/22/2024 09:07:19 [facility] [place] [facility] RESPIRATION 18 05/22/2024 09:07:19 [facility] [place] [facility] SYSTOLIC BLOOD PRESSURE 144 05/15/19 25 11:16:13 [place] DIASTOLIC BLOOD PRESSURE 84 025 11:16:13 [place] PULSE OXIMETRY 97 05/15/2024 11:16:13 [place] WEIGHT 201 05/15/2024 11:16:13 [place] BMI 35 kg/m2 05/15/2024 11:16:13 [place] HEIGHT 64 05/15/2024 11:16:13 [place] TEMPERATURE 97.8 05/15/2024 11:16:13 [place] PULSE 73 05/15/2024 11:16:13 [place] RESPIRATION 19 05/15/2024 11:16:13 [place] SYSTOLIC BLOOD PRESSURE 124 04/24/19 25 10:55:06 [facility] [place] [facility] DIASTOLIC BLOOD PRESSURE 87 025 10:55:06 [facility] [place] [facility] PULSE OXIMETRY 99 04/24/2024 10:55:06 [facility] [place] [facility] WEIGHT 193.9 04/24/2024 10:55:06 [facility] [place] [facility] BMI 33 kg/m2 04/24/2024 10:55:06 [facility] [place] [facility] PULSE 101 04/24/2024 10:55:06 [facility] [place] [facility] RESPIRATION 16 04/24/2024 10:55:06 [facility] [place] [facility] SYSTOLIC BLOOD PRESSURE 159 03/27/20 24 10:20:55 [facility] [place] [facility] DIASTOLIC BLOOD PRESSURE 77 024 10:20:55 [facility] [place] [facility] PULSE OXIMETRY 98 03/27/2024 10:20:55 [facility] [place] [facility] WEIGHT 190.1 03/27/2024 10:20:55 [facility] [place] [facility] BMI 33 kg/m2 03/27/2024 10:20:55 [facility] [place] [facility] PULSE 69 03/27/2024 10:20:55 [facility] [place] [facility] RESPIRATION 18 03/27/2024 10:20:55 [facility] [place] [facility] Encounters Combined list of: 1) Encounters from Department of Veterans Affairs facilities going backup to the last 18 months, not all VA inpatient encounters are included; 2) Encounters from the Department of Defense facilities going backup to 280 months. Location Location Details Encounter Type Encounter Number Reason For Visit Attending Provider ADM Date DC Date Status Disposition Source [facility] OFFICE O/P EST MOD 30-39 MIN [id number] Diagnos is: ICD-10- CM F20.[address] [facility] [place], 1 J [id number] Diagnos is: ICD-10- CM F20.0 Paranoi d schizop hrenia JEREMI,W CAYDEN 01/25 [facility] [place] [facility] Encounter [id number] 01/31 [facility] [place], INVEGA SUSTENNA, 1 MGJ [id number] Diagnos is: ICD-10- CM F20.0 [place] schizop hrenia JEREMI,W CAYDEN 03/04 [place] IN[place], INVE[place] SUSTEN[place], 1 [place] [id number] Diagnos is: ICD-10- CM F20.0 Paranoi d schizop hrenia JEREMI,W CAYDEN 04/05 [place] [facility] Outpatient Encounter [id number] 04/24 [facility] En[facility] [id number] 05/03 [facility] Outpatient Encounter [id number] 05/07 [facility] [place] [facility] [place] OFFICE O/P EST MOD 30 MIN [id number] Diagnos is: ICD-10- CM I10 Essenti al (primar y) hyperte nsion STELEA,CAR MEN F 05/10 [place] [facility] O/P EST MOD 30 MIN [id number] Diagnos is: ICD-10- CM I10 Essenti al (primar y) hyperte nsion STELEA,CAR MEN F 05/10 [facility] [place] INJ, INVEGA SUSTENNA, 1 [place] [id number] Diagnos is: ICD-10- CM F20.0 Paranoi d schizop hrenia JEREMI,W CAYDEN 05/10 [place] OFFICE O/P EST LOW 20 MIN [id number] Diagnos is: ICD-10- CM F20.0 Paranoi d schizop hrenia STEPHANYST MONET G 05/31 [place] INJ, INVEGA SUSTENNA, 1 [place] [id number] Diagnos is: ICD-10- CM F20.0 Paranoi d schizop hrenia JEREMI,W CAYDEN 06/13 [facility] [place], INVEGA [place], 1 [place] [address]872-4.63 [id number] Diagnos is: ICD-10- CM F20.0 [place] schiz[place] hrenia JEREMI,W ACYDEN 07/11 [facility] [place], INVEGA SUSTENNA, 1 [place] [address]-6.63 [id number] Diagnos is: ICD-10- CM F20.0 [place] schizop hrenia JEREMI,W CAYDEN08/08 [facility] [place] [facility] [place] [facility] Outpatient Encounter [id number] 08/27 [place] [facility] [facility] [place] O/P EST MOD 30 MIN 29473-7.63 [id number] Diagnos is: ICD-10- CM F20.[address] [facility] HAMMOND G 08/27 [facility] [place] CASE MANAGEMENT 61633-4.63 [id number] Diagnos is: ICD-10- CM F20.0 [place] schiz[place] hren[place] JEREMI,W CAYDEN08/27 [facility] [place] [facility] Outpatient Encounter [id number]/27 [place] [facility] [facility] [place], INVEGA [place]ENNA, 1 [place] [address]-0.63 [id number] Diagnos is: ICD-10- CM F20.0 [place] schizop hrenia JEREMI,W CAYDEN 09/05 [facility] [place], INVEGA [place]STENNA, 1 [place] [address]-6.63 [id number] Diagnos is: ICD-10- CM F20.0 [place] schiz[place] hren[place] JEREMI,W CAYDEN10/03 [facility] [place] 66632-0.63 [id number] Diagnos is: ICD-10- CM F20.0 [place] schizop hrenia JEREMI,W CAYDEN 10/31 [facility] [facility] [place] [facility] Outpatient Encounter [id number] 10/31 [place] [facility] [place] [facility] [place], INVEGA SUSTENNA, 1 [place] [address]-3.63 [id number] Diagnos is: ICD-10- CM F20.0 [place] schizop hrenia JEREMI,W CAYDEN 11/07 [facility] [place] [facility] [place] [facility] Outpatient Encounter [id number] 11/07 [place] [facility] [place] [facility] [place] OFF[place] O/P EST MOD 30 MIN 75682-1.63 [id number] Diagnos is: ICD-10- CM I10 Essenti al (primar y) hyperte nsion STELEA,CAR MEN F 11/07 [facility] [place] OFF[place] O/P EST MOD 30 MIN 83200-5.63 [id number] Diagnos is: ICD-10- CM F20.[address] [facility] HAMMOND G 11/26 [facility] [place], INVEGA SUSTENNA, 1 [place] [address]330-3.63 [id number] Diagnos is: ICD-10- CM F20.0 [place] schizop hrenia JEREMI,W CAYDEN 12/05 [place] [facility] [place] [facility] Outpatient Encounter [id number] 12/25 [facility] [place] [facility] [place] IN[place], INVEGA SUSTENNA, 1 MG 10990-5.63 [id number] Diagnos is: ICD-10- CM F20.0 Paranoi d schizop hrenia JEREMI,W CAYDEN 01/01 [place] [facility] [place] [facility] Outpatient Encounter [id number] 01/09 [facility] [place] [place] [facility] [place] INJ, INVEGA SUSTENNA, 1 MG 14744-2.63 [id number] Diagnos is: ICD-10- CM F20.0 Paranoi d schizop hrenia JEREMI,W CAYDEN 01/30 [facility] [place] O/P EST MOD 30 MIN [id number] Diagnos is: ICD-10- CM F20.[address] [facility] 02/27 [facility] [place] INJ, INVEGA SUSTENNA, 1 [place] [id number] Diagnos is: ICD-10- CM F20.0 Paranoi d schizop hrenia JOSE WATTS 02/27 [place] [facility] [place] [facility] Outpatient Encounter [id number] 1.03/25 [facility] [place] [place] [facility] [place] INJ, INVEGA SUSTENNA, 1 [place] 85135-7.63 1BY. 54 Diagnos is: ICD-10- CM F20.0 Paranoi d schizop hrenia JOSE WATTS 03/27 [facility] [place] INJ, INVEGA SUSTENNA, 1 [place] [id number] Diagnos is: ICD-10- CM F20.0 Paranoi d schizop hrenia JOSE WATTS 04/24 [place] [facility] [place] Out[facility] Encounter [id number] [facility] [place] [place] [facility] [place] [facility] Outpatient Encounter [id number] 05/15 [facility] [place] [place] [facility] [place] OFFICE O/P EST HI 40 MIN [id number] Diagnos is: ICD-10- CM J43.9 Negare carla, crystali heladiojuan m [place],KE NDRA C [facility] [place], 1 [place] 46240-3.63 [id number] Diagnos is: ICD-10- CM F20.0 Paranoi d schizop hrtiarra WATTSJOSE 05/22 [facility] OFFICE O/P EST LOW 20 MIN [id number] Diagnos is: ICD-10- CM F20.0 Paranoi d schizop hrST MONET Morrow G 05/29 [facility] [place] [place] [facility] Outpatient Encounter [id number] 06/11 [place] [facility] [place] [facility] [place], INVEGA SUSTENNA, 1 MG 73034-2.63 1BY. 09 Diagnos is: ICD-10- CM F20.0 Paranoi d schizop hrtiarra WATTS,JOSE 06/19 [facility] Social History Combined list of available smoking, tobacco, and other social history from [facility] of Defense and [facility] facilities. Social History Type Response Date Comment Source Tobacco smoking status [place] [facility]-TO[facility]ACCO USE ADVICE 05/15/2024 [place] History of tobacco use VA-TOBACCO SCREEN FOLLOW-UP 05/15/2024 [place] History of tobacco use VA-TOBACCO USE EVERY DAY CIGARETTES 05/15/2024 [facility] [place] [facility] History of tobacco use VA-TOBACCO USER EVERY DAY 05/10/2023 [place] History of tobacco use VA-TOBACCO USER EVERY DAY 03/02/2022 [place] History of tobacco use VA-TOBACCO USER EVERY DAY 01/31/2021 [facility] [place] [facility] History of tobacco use VA-TOBACCO USE WI 30 MIN OF WAKEUP 02/19/2020 [place] History of tobacco use 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 09/17/2018 [place] History of tobacco use VA-TOBACCO USER EVERY DAY 11/11/2017 [place] History of tobacco use V1-PT NOT INTERESTED IN QUIT TOBACCO USE 05/31/2017 [place] History of tobacco use CURRENT SMOKER 04/11/2017 1 pack per day [facility] History of tobacco use CURRENT SMOKER 10/09/2016 [place] History of tobacco use CURRENT SMOKER 04/03/2016 [place] History of tobacco use CURRENT SMOKER 11/16/2015 alot [place] History of tobacco use V1-PT NOT INTERESTED IN QUIT TOBACCO USE 09/07/2015 [place] History of tobacco use V1-PT NOT INTERESTED IN QUIT TOBACCO USE 03/23/2015 [place] History of tobacco use V1-PT NOT INTERESTED IN QUIT TOBACCO USE 10/06/2014 [place] History of tobacco use CURRENT SMOKER 04/14/2014 1 pack a day [facility] History of tobacco use V1-PT DECLINES TOBACCO CESSATION MEDS 09/30/2013 [place] History of tobacco use CURRENT SMOKER 04/16/2013 [place] History of tobacco use V1-PT DECLINES TOBACCO CESSATION MEDS 09/24/2012 [place] History of tobacco use CURRENT SMOKER 05/07/2012 [place] History of tobacco use V1-PT DECLINES TOBACCO CESSATION MEDS 01/09/2012 [place] History of tobacco use V1-PT DECLINES TOBACCO CESSATION MEDS 07/26/2011 [place] History of tobacco use CURRENT SMOKER 05/02/2011 smokes 1 ppd [facility] History of tobacco use V1-PT DECLINES TOBACCO CESSATION MEDS 01/31/2011 [place] History of tobacco use V1-PT DECLINES TOBACCO CESSATION MEDS 08/16/2010 [place] History of tobacco use CURRENT SMOKER 06/21/2010 smokes 1 ppd [place] History of tobacco use V1-PT DECLINES TOBACCO CESSATION MEDS 03/03/2010 [place] History of tobacco use V1-PT DECLINES TOBACCO CESSATION MEDS 07/19/2009 [place] History of tobacco use CURRENT SMOKER 07/05/2009 1 ppd [facility] History of tobacco use V1-PT DECLINES TOBACCO CESSATION MEDS 02/15/2009 [place] History of tobacco use V1-PT DECLINES TOBACCO CESSATION MEDS 09/09/2008 [place] History of tobacco use V1-PT DECLINES TOBACCO CESSATION MEDS 01/28/2008 [place] History of tobacco use V1-PT DECLINES TOBACCO CESSATION MEDS 09/09/2007 [place] History of tobacco use V1-PT DECLINES TOBACCO CESSATION MEDS 07/29/2007 [place] History of tobacco use V1-PT DECLINES TOBACCO CESSATION MEDS 03/05/2007 [place] History of tobacco use CURRENT SMOKER 07/09/2006 [place] History of tobacco use CURRENT SMOKER 12/26/2004 He says he doesn't inhale. Advised to quit. [facility] History of tobacco use CURRENT SMOKER 10/15/2003 1ppd x 30yrs [facility] History of tobacco use LIFETIME NON-TOBACCO USER 12/02/2002 [place] History of tobacco use LIFETIME NON-TOBACCO USER 10/21/2002 [place] History of tobacco use CURRENT SMOKER 07/01/2002 [place] History of tobacco use CURRENT SMOKER 06/03/2002 1 pack daily..smoking 35 years [facility] History of tobacco use CURRENT SMOKER 05/27/2002 one pack [facility] History of tobacco use CURRENT SMOKER 12/13/2000 1 pack a day [facility] Plan of Care List of future care activities from [facility] facilities. Additional future care activities may be listed in the Assessment and Plan section. Date/Time Care Activity Care Activity Detail Facili 07/17/2024 AMBULATORY - PSYCHIATRY AMBULATORY - [facility] [place] [facility] 09/29/2024 AMBULATORY - PSYCHIATRY AMBULATORY - [facility] 11/11/2024 AMBULATORY - MEDICINE AMBULATORY - MEDICI [facility] Advance Directives List of completed, amended, or rescinded Advance Directives on record at [facility] facilities. An actual copy of the Directive is not included. Date Advance Directive Provider Source 10/24/2021 [facility] DIRECTIVE ZO GRADY
[2024-06-26 13:29] LABS: Mumps Virus IgG Antibody >300.00 AU/mL; Rubeola IgG (Measles) >300.00 AU/mL
== END 2024-06-25 13:21 | disposition home or self-care (01) ==
LOC: HO.LAB 13:20
PROVIDERS: PCP Internal Medicine; Visit Provider Internal Medicine
DX: E07.9 Disorder of thyroid, unspecified (principal); E78.00 Pure hypercholesterolemia, unspecified; Z87.438 Personal history of other diseases of male genital organs; Z28.39 Other underimmunization status; Z13.1 Encounter for screening for diabetes mellitus
CPT/HCPCS: 36415; 83036; 84443; 86735; 86762; 86765; 96127; 99212

== ENCOUNTER 2024-06-25 13:20 | Outpatient (AMB) | payer MEDICARE, MEDICAID, SELFPAY ==
--- NOTE | 2024-06-25 13:30 | MHC.PC.OV ---
Vital Signs 06/25/24 13:39 Height 5 ft 4 in Weight 197 lb BMI 33.8 BP 130/88 Respiration 18 Pulse 80 Pulse Source Pulse Oximeter Temp 98.0 F Temp Source Temporal Artery Scan Pulse Oximetry (%) 96 Oxygen Delivery Method Room Air Intake Visit Reasons: routine Handbag Stitcher Required: No Accompanied by: Sister Allergies No Known Allergies Allergy (Verified 06/25/24 13:30) Medication List - Last Reconciled 06/25/24 by Mabel Mojica MD finasteride 5 mg PO DAILY levothyroxine (Synthroid) 88 mcg PO DAILY losartan 50 mg PO DAILY mirtazapine 30 mg PO BEDTIME simvastatin 80 mg PO BEDTIME tamsulosin 0.4 mg PO BEDTIME Tobacco use date assessed: 06/25/24 Fall risk assessment: 1 Fall in past year Last assessed Fall Risk: 06/25/24 Dental Screening Dental Screen Date: 06/25/24 Did you have a dental visit in the last 12 months?: No Did you have a dental problem in the last 6 months where you did not have access to dental care?: No HPI HPI Comments History of Present Illness Details The patient is a 74 year old male with a past medical history of hypertension, hyperlipidemia, hypothyroid s/p ablation, copd (emphysema), ED, schizophrenia, tobacco use presenting for follow up. Last seen with PCP for annual in Feb 2024 for CPE CV: On losartan 50, simvastatin 80 daily. Denies chest pain, shortness of breath. Endocrine: On levothyroxine 137mcg daily. Urology: Saw urology. On tamsulosin, finasteride. BH: Schizophrenia. Follows [facility]-on invega, remeron 30mg daily History of colonic polyps. Last colonoscopy 2020-5 year repeat recommended. Follows with Dr Poncho PELAEZ CONSTITUTIONAL: Denies weight loss, fever and chills. HEENT: Denies changes in vision and hearing. RESPIRATORY: Denies SOB and cough. CV: Denies palpitations and CP GI: Denies abdominal pain, nausea, vomiting and diarrhea. : Denies dysuria and urinary frequency. MSK: Denies new myalgia and joint pain. SKIN: Denies rash and pruritus. NEUROLOGICAL: Denies headache PSYCHIATRIC: Denies recent changes in mood. PHYSICAL EXAM: GENERAL: Alert and oriented x 3. NAD EYES: EOMI. Anicteric. HENT: Moist mucous membranes. No scleral icterus. No cervical lymphadenopathy. LUNGS: Scattered wheeze, coarse CARDIOVASCULAR: Regular rate and rhythm. No murmur. ABDOMEN: Soft, non-tender +bs EXTREMITIES: No edema. Non-tender. SKIN: No rashes or lesions. Warm. NEUROLOGIC: No focal neurological deficits. CN II-XII grossly intact PSYCHIATRIC: Cooperative. Appropriate mood and affect [facility] Medical History Hx of schizophrenia History of BPH Elevated cholesterol HTN (hypertension) Thyroid disease Surgical History H/O colonoscopy Family History Father Colon cancer Mother Stroke Social History Housing: House Alcohol intake: never Patient Tobacco Use Status: Current everyday Tobacco user Cigarettes Per Day: 3 service: No Current occupational status: retired Cognitive needs: No Hearing needs: No Vision needs: No Questionnaire PHQ-9 Over the last 2 weeks, how often have you been bothered by any of the following problems? 1. Little interest or pleasure in doing things: not at all 2. Feeling down, depressed, or hopeless: not at all 3. Trouble falling or staying asleep, or sleeping too much: not at all 4. Feeling tired or having little energy: not at all 5. Poor appetite or overeating: not at all 6. Feeling bad about yourself - or that you are a failure or have let yourself or your family down: not at all 7. Trouble concentrating on things, such as reading the newspaper or watching television: not at all 8. Moving or speaking so slowly that other people could have noticed. Or the opposite - being so fidgety or restless that you have been moving around a lot more than usual: not at all 9. Thoughts that you would be better off or of hurting yourself in some way: not at all Total score: 0 Depression Screening Interpretation: Negative Depression Screening Done: Yes 51137 - PHQ-9 Billing: Yes Source: Developed by Drs. Shravan LAreli Stroud Kurt Kroenke and colleagues, with an educational heraclio from [employer]. Thrive Questionnaire Date Thrive assessed: 06/25/24 I am a: Patient What is your living situation today?: I have a steady place to live Within the past 12 months, did the food you bought not last and you didn't have the money to get more?: Never true Within the past 12 months, did you worry whether your food would run out before you got money to buy more?: Never true Do you have trouble paying for medicines?: No Do you have trouble getting transportation to medical appointments?: No Do you have trouble paying your heating and electricity bill?: No Do you have trouble taking care of your child, family member or friend?: No Do you have trouble with day-to-day activities such as bathing, preparing meals, shopping, managing finances, etc.?: No Are you currently unemployed and looking for a job?: No Are you interested in more education?: No THRIVE Score: 0 AUDIT C Alcohol Use Questionnaire (AUDIT-C) 1. How often do you have a drink containing alcohol?: Never 3. How often do you have six or more drinks on one occasion?: Never Total Score: 0 RICHY-7 AMB Questionnaire RICHY-7 Date RICHY - 7 assessed: 06/25/24 Feeling nervous, anxious, or on edge: 0 = Not at all Not being able to stop or control worryin = Not at all Worrying too much about different things: 0 = Not at all Trouble relaxin = Not at all Being so restless that it is hard to sit still: 0 = Not at all Becoming easily annoyed or irritable: 0 = Not at all Feeling afraid as if something awful might happen: 0 = Not at all Total RICHY-7 score (0-4 normal; 5-9 mild; 10-14 moderate; 15-21 severe): 0 Source: Developed by Areli Avina Kurt Kroenke and colleagues, with an educational heraclio from [employer]. Physical exam (Primary Care) Vital Signs: Last Vital Signs Temp 98.0 F 06/25/24 13:39 Pulse 80 06/25/24 13:39 Resp 18 06/25/24 13:39 BP 130/88 06/25/24 13:39 Pulse Ox 96 06/25/24 13:39 Oxygen Delivery Method Room Air 06/25/24 13:39 BMI result Body Mass Index 33.8 Tobacco/Smoking Status: Tobacco use Status Tobacco use date assessed 06/25/24 06/25/24 13:31 Patient Tobacco Use Status Current everyday Tobacco 06/25/24 13:47 PHQ-9: PHQ-9 Score PHQ-9: Total score 0 06/25/24 13:48 Depression Screening Interpretation: Negative Thrive Assessment: Date of Thrive Assessment Date Thrive assessed 06/25/24 06/25/24 13:31 Coding Level of Care Code Est Pt Level 4 (67109) Complex EM visit Add On G2211 Diagnoses Thyroid disease E07.9 Elevated cholesterol E78.00 History of BPH Z87.438 Additional Codes PHQ-9 - 79701 - PHQ-9 Billing: Yes ([id number]) Assessment & Plan Assessment & Plan (1) Thyroid disease: Code(s): E07.9 - Disorder of thyroid, unspecified Category: Medical Plan: Clinically and biochemicall euthyroid continue levothyroxine (2) Elevated cholesterol: Code(s): E78.00 - Pure hypercholesterolemia, unspecified Category: Medical Plan: continue statin therapy (3) History of BPH: Code(s): Z87.438 - Personal history of other diseases of male genital organs Category: Medical Plan: stable on tamsulosin, finasteride Orders: Orders Hemoglobin A1c Today E07.9 - Disorder of thyroid, unspecified, E78.00 - Pure hypercholesterolemia, unspecified, Z28.39 - Other underimmunization status, Z87.438 - Personal history of other diseases of male genital organs MMR IgG Measles Mumps Rubella Today E07.9 - Disorder of thyroid, unspecified, E78.00 - Pure hypercholesterolemia, unspecified, Z28.39 - Other underimmunization status, Z87.438 - Personal history of other diseases of male genital organs TSH reflex Free T4 Today E07.9 - Disorder of thyroid, unspecified, E78.00 - Pure hypercholesterolemia, unspecified, Z28.39 - Other underimmunization status, Z87.438 - Personal history of other diseases of male genital organs
[2024-06-25 13:39] VITALS: BP 130/88; PULSE 80; RESP 18; TEMP 36.7; O2SAT 96; BMI 33.8
--- OUTSIDE RECORDS SUMMARY | 2024-06-25 16:53 | XMS_ITS | Patient Health Record ---
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 Name Role Phone RADHIKA COTTER Primary Care Provider Shravan Coleman Unavailable [phone] Lyla Campos MD Unavailable Unavailable Reason For Referral No Information Medications Medication SIG (Take, Route, Frequency, Duration) Notes Start Date End Date Status Losartan Potassium 50 MG 1 tablet Orally Once a day Active Cyanocobalamin 500 MCG 1 tablet Orally O nce a day Active Paliperidone Palmitate as directed Intra muscular every 4 weeks Active Melatonin 5 MG 1 tablet in the even ing Orally at bedtime as needed Active Lisinopril 2mg Activ e Mirtazapine 30mg Act ara Finasteride 5 MG 1 tablet Orally Once a day Active risperiDONE 4mg Acti ve Simvastatin 80mg Act ara Synthroid 88 MCG 1 tablet in the morn ing on an empty stomach Orally Once a day Active Tamsulosin HCl 0.4 MG 1 capsule 30 minut es after the same meal each day Orally Once a day Active MiraLax (colon prep) 8.3 ounce ((238) grams mixed with Gatorade or Crystal Light orally Take 1/2 bottle of Miralax 2 days before the colonoscopy, and a full bottle the day before for 1 day 04/05/2020 Active Dulcolax (colon prep) 5 MG 2 Orally Take 2 tabs 2 days before the colonoscopy and take two tablets twice a day the day before the colonoscopy for 2 days 04/05/2020 Active Immunizations Vaccine Route Administration Date Status Comme nts Influenza Unknown 04/05/2020 Refused Social History Tobacco Use: Social History Observation Description Date Details (start date - stop date) Current Smoker NA - NA Tobacco Use/Smoking Question Answer Notes Patient is a current smoker How often do you smoke cigarettes? every day How many cigarettes a day do you smoke? 11-20 How soon after you wake up d o you smoke your first cigarette? 6-30 minutes Are you interested in quitting? Thinking about q uitting Section Notes: Smoker; no alcohol Smoker; no alcohol Smoker; no alcohol Problems Problem Type SNOMED Code ICD Code Onset Dates Problem Status W/U Status Risk Notes Problem Screening for malignant neoplasm of colon (000498642) Encounter for screening for malignant neoplasm of colon (Z12.11) Active confirmed Problem Preprocedural examination (117280868289705) Preprocedural examination (Z01.818) Active confirmed Problem Family History of Cancer of Colon (Situation) (554250521) Family history of colon cancer (Z80.0) Active confirmed Plan Of Treatment Pending Test Test Name Order Date Pathology 06/27/2020 Future Test Test Name Order Date COLONOSCOPY 04/20/2014 COLONOSCOPY 04/05/2020 Insurance Providers Payer Name Payer Address Payer Phone Subscriber Number Group Number Insured Name Patient Relationship to Insured Coverage Start Date Coverage End Date [facility] [employer] [address] [place] [address] [id number] DANNY FLORES Self - patient is the insured Medical (General) History Medical History History ICD Code Colonoscopy 05-23-2007-hyperpl astic polyp only; had a neg colonoscopy in 2001 and in the Schizophrenia Hyperlipidemia Denies MD,DM,CVA,Lung disease,renal dise ase BPH Hypothyroidism Insomnia Neg colonoscopy in 06/2014 except for a h yperplastic polyp Surgical History Surgery Date(Month/Year)
== END 2024-06-25 14:28 | disposition home or self-care (01) ==
LOC: HO.HMCHD 13:20
PROVIDERS: PCP Internal Medicine; Visit Provider Internal Medicine
DX: E07.9 Disorder of thyroid, unspecified (principal); E78.00 Pure hypercholesterolemia, unspecified; Z87.438 Personal history of other diseases of male genital organs

== ENCOUNTER 2024-09-18 14:44 | Outpatient (REF) | payer MEDICARE, MEDICAID, SELFPAY ==
[2024-09-18 15:43] LABS: MANUAL DIFF FLAG NO
[2024-09-18 16:38] LABS: Basophils Absolute Auto 0.1 X10*3/uL (0.0-0.2); Basophils Percent Auto 0.8 % (0-2); Eosinophils Absolute Auto 0.2 X10*3/uL (0.0-0.4); Eosinophils Percent Auto 3.2 % (0-4); Hematocrit 43.2 % (42.0-52.0); Hemoglobin 14.2 g/dl (14.0-18.0); Imm Gran Abs Auto 0.02 X10*3/uL (0.00-0.03); Imm Gran Pct Auto 0.3 % (0.0-0.4); Lymphocytes Percent Auto 29.7 % (20-40); Mean Corpuscular HGB Conc 32.9 g/dl (31.0-36.0); Mean Corpuscular Hemoglobin 31.6 pg (27.0-33.0); Mean Corpuscular Volume 96.2 fL (80.0-98.0); Mean Platelet Volume 12.1 fL (9.4-12.4); Monocytes Absolute Auto 0.4 X10*3/uL (0.1-1.2); Monocytes Percent Auto 5.8 % (2-11); Neutrophils Percent Auto 60.2 % (45-73); Platelet Count 115 X10*3/uL (160-400); Red Blood Count 4.49 X10*6/uL (4.60-5.80); Red Cell Distribution Width 13.3 % (11.0-16.0); White Blood Count 6.6 X10*3/uL (4.8-10.8)
[2024-09-18 17:24] LABS: Prostate Specific Antigen 0.13 ng/mL (<0.05-4.0)
[2024-09-18 18:17] LABS: Alanine Aminotransferase 26 U/L (0-40); Albumin Level 4.5 g/dL (3.5-5.0); Anion Gap 11 (12-20); Aspartate Amino Transferase 30 U/L (5-37); Bilirubin Total 0.7 mg/dL (0.0-1.0); Blood Urea Nitrogen 16 mg/dL (9-16); Calcium 9.6 mg/dL (8.4-10.2); Carbon Dioxide 26 mmol/L (22-29); Chloride 110 mmol/L (96-108); Estimated Glomerular Filt Rate 59; Glucose Random 95 mg/dL (60-115); Potassium 3.9 mmol/L (3.3-5.1); Sodium 143 mmol/L (135-145); Total Protein 7.2 g/dL (6.5-8.0)
[2024-09-18 18:48] LABS: Alkaline Phosphatase 80 U/L (39-117)
[2024-09-20 23:58] LABS: LDL Cholesterol Direct 67 mg/dL (<100)
== END 2024-09-18 14:45 | disposition home or self-care (01) ==
LOC: HO.LAB 14:44
PROVIDERS: PCP Internal Medicine; Visit Provider Internal Medicine
DX: I10 Essential (primary) hypertension (principal); E03.9 Hypothyroidism, unspecified; E78.00 Pure hypercholesterolemia, unspecified; F20.9 Schizophrenia, unspecified; Z79.899 Other long term (current) drug therapy; Z87.438 Personal history of other diseases of male genital organs; Z12.5 Encounter for screening for malignant neoplasm of prostate
CPT/HCPCS: 36415; 80053; 83721; 84153; 85025; 96127; 99212

== ENCOUNTER 2024-09-18 14:44 | Outpatient (AMB) | payer MEDICARE, MEDICAID, SELFPAY ==
[2024-09-18 14:33] VITALS: BP 122/68; PULSE 97; TEMP 36.4; O2SAT 96; BMI 34.3
--- NOTE | 2024-09-18 14:33 | A.OFFPC_ITS ---
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 Required: No Accompanied by: Sister Allergies No Known Allergies Allergy (Verified 09/18/24 14:34) Tobacco use date assessed: 09/18/24 Fall risk assessment: 1 Fall in past year Last assessed Fall Risk: 09/18/24 Dental Screening Dental Screen Date: 09/18/24 Did you have a dental visit in the last 12 months?: No Did you have a dental problem in the last 6 months where you did not have access to dental care?: No HPI HPI Comments History of Present Illness Details The patient is a 74 year old male with a past medical history of hypertension, hyperlipidemia, hypothyroid s/p ablation, copd (emphysema), ED, schizophrenia, tobacco use presenting for follow up. CV: On losartan 50, simvastatin 80 daily. Denies chest pain, shortness of breath. Endocrine: On levothyroxine 137mcg daily. Does not feel well on generic. Urology: Saw urology. On tamsulosin, finasteride. [facility]: [facility]. Difficulty losing weight History of colonic polyps. Last colonoscopy 2020-5 year repeat recommended. Follows with Dr Poncho PELAEZ CONSTITUTIONAL: Denies weight loss, fever and chills. HEENT: Denies changes in vision and hearing. RESPIRATORY: Denies SOB and cough. CV: Denies palpitations and CP GI: Denies abdominal pain, nausea, vomiting and diarrhea. : Denies dysuria and urinary frequency. MSK: Denies new myalgia and joint pain. SKIN: Denies rash and pruritus. NEUROLOGICAL: Denies headache PSYCHIATRIC: Denies recent changes in mood. PHYSICAL EXAM: GENERAL: Alert and oriented x 3. NAD EYES: EOMI. Anicteric. HENT: Moist mucous membranes. No scleral icterus. No cervical lymphadenopathy. LUNGS: Scattered wheeze, coarse CARDIOVASCULAR: Regular rate and rhythm. No murmur. ABDOMEN: Soft, non-tender +bs EXTREMITIES: No edema. Non-tender. SKIN: No rashes or lesions. Warm. NEUROLOGIC: No focal neurological deficits. CN II-XII grossly intact PSYCHIATRIC: Cooperative. Appropriate mood and affect [facility] Medical History (Updated 09/19/24 @ 12:20 by Mabel Mojica MD) Hx of schizophrenia History of BPH Elevated cholesterol HTN (hypertension) Thyroid disease Surgical History H/O colonoscopy (~06/27/20) Family History Father Colon cancer Mother Stroke Social History Housing: House Alcohol intake: never Patient Tobacco Use Status: Current everyday Tobacco user Cigarettes Per Day: 3 e-Cigarette/Vaping Use: Currently Using service: No Current occupational status: retired Cognitive needs: No Hearing needs: No Vision needs: No Questionnaire PHQ-9 Over the last 2 weeks, how often have you been bothered by any of the following problems? 1. Little interest or pleasure in doing things: not at all 2. Feeling down, depressed, or hopeless: not at all 3. Trouble falling or staying asleep, or sleeping too much: not at all 4. Feeling tired or having little energy: not at all 5. Poor appetite or overeating: not at all 6. Feeling bad about yourself - or that you are a failure or have let yourself or your family down: not at all 7. Trouble concentrating on things, such as reading the newspaper or watching television: not at all 8. Moving or speaking so slowly that other people could have noticed. Or the opposite - being so fidgety or restless that you have been moving around a lot more than usual: not at all 9. Thoughts that you would be better off or of hurting yourself in some way: not at all Total score: 0 Depression Screening Interpretation: Negative Depression Screening Done: Yes 52212 - PHQ-9 Billing: Yes Source: Developed by Drs. Shravan Pfeiffer, Areli Arroyo, Julian Crystal and colleagues, with an educational heraclio from [employer]. Thrive Questionnaire Date Thrive assessed: 09/18/24 I am a: Patient Within the past 12 months, did the food you bought not last and you didn't have the money to get more?: Never true Within the past 12 months, did you worry whether your food would run out before you got money to buy more?: Never true Do you have trouble paying for medicines?: No Do you have trouble getting transportation to medical appointments?: No Do you have trouble paying your heating and electricity bill?: No Do you have trouble taking care of your child, family member or friend?: No Do you have trouble with day-to-day activities such as bathing, preparing meals, shopping, managing finances, etc.?: No Are you currently unemployed and looking for a job?: No Are you interested in more education?: No THRIVE Score: 0 AUDIT C Alcohol Use Questionnaire (AUDIT-C) 1. How often do you have a drink containing alcohol?: Never 3. How often do you have six or more drinks on one occasion?: Never Total Score: 0 RICHY-7 AMB Questionnaire RICHY-7 Date RICHY - 7 assessed: 09/18/24 Feeling nervous, anxious, or on edge: 0 = Not at all Not being able to stop or control worryin = Not at all Worrying too much about different things: 0 = Not at all Trouble relaxin = Not at all Being so restless that it is hard to sit still: 0 = Not at all Becoming easily annoyed or irritable: 0 = Not at all Feeling afraid as if something awful might happen: 0 = Not at all Total RICHY-7 score (0-4 normal; 5-9 mild; 10-14 moderate; 15-21 severe): 0 Source: Developed by Drs. Shravan Pfeiffer, Areli Arroyo, Julian Crystal and colleagues, with an educational heraclio from [employer]. Physical exam (Primary Care) Vital Signs: Last Vital Signs Temp 97.6 F 09/18/24 14:33 Pulse 97 09/18/24 14:33 BP 122/68 09/18/24 14:33 Pulse Ox 96 09/18/24 14:33 Oxygen Delivery Method Room Air 09/18/24 14:33 BMI result Body Mass Index 34.3 Tobacco/Smoking Status: Tobacco use Status Tobacco use date assessed 09/18/24 09/18/24 14:35 Patient Tobacco Use Status Current everyday Tobacco 09/18/24 14:35 e-Cigarette/Vaping Use Currently Using 09/18/24 14:35 PHQ-9: PHQ-9 Score PHQ-9: Total score 0 09/19/24 10:23 Depression Screening Interpretation: Negative Thrive Assessment: Date of Thrive Assessment Date Thrive assessed 09/18/24 09/18/24 14:35 Coding Level of Care Code Est Pt Level 4 (68183) Diagnoses History of BPH Z87.438 Elevated cholesterol E78.00 Thyroid disease E07.9 Additional Codes PHQ-9 - 33917 - PHQ-9 Billing: Yes ([id number]) Assessment & Plan Assessment & Plan (1) History of BPH: Code(s): Z87.438 - Personal history of other diseases of male genital organs Category: Medical (2) Elevated cholesterol: Code(s): E78.00 - Pure hypercholesterolemia, unspecified Category: Medical (3) Thyroid disease: Code(s): E07.9 - Disorder of thyroid, unspecified Category: Medical Plan htn-stable on current medications BPH stable Schizophrenia. continue follow up Discussed obesity efforts toward weight saniya Hypothyroid -not tolerating generic levothyroxine Orders: Orders LDL Cholesterol Direct 09/18/24 E07.9 - Disorder of thyroid, unspecified, E78.00 - Pure hypercholesterolemia, unspecified, Z12.5 - Encounter for screening for malignant neoplasm of prostate, Z87.438 - Personal history of other diseases of male genital organs Prostate Specific Antigen 09/18/24 E07.9 - Disorder of thyroid, unspecified, E78.00 - Pure hypercholesterolemia, unspecified, Z12.5 - Encounter for screening for malignant neoplasm of prostate, Z87.438 - Personal history of other diseases of male genital organs Complete Blood Count Auto Diff 09/18/24 E07.9 - Disorder of thyroid, unspecified, E78.00 - Pure hypercholesterolemia, unspecified, Z12.5 - Encounter for screening for malignant neoplasm of prostate, Z87.438 - Personal history of other diseases of male genital organs Comprehensive Met. Panel 09/18/24 E07.9 - Disorder of thyroid, unspecified, E78.00 - Pure hypercholesterolemia, unspecified, Z12.5 - Encounter for screening for malignant neoplasm of prostate, Z87.438 - Personal history of other diseases of male genital organs Medications: Changed From levothyroxine (Synthroid) 137 mcg PO DAILY 90 tabs 3RF E07.9 - Disorder of thyroid, unspecified To Synthroid (levothyroxine) 137 mcg PO DAILY 90 tabs 3RF NS E07.9 - Disorder of thyroid, unspecified
--- OUTSIDE RECORDS SUMMARY | 2024-09-18 14:46 | XMS_ITS | Patient Health Record ---
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 Name Role Phone RADHIKA COTTER Primary Care Provider Shravan Coleman Unavailable [phone] Lyla Campos MD Unavailable Unavailable Reason For [...] Problem Status W/U Status Risk Notes Problem Encounter for screening for malignant neoplasm of colon (Z12.11) Active confirmed Problem Preprocedural examination ([id number]) Preprocedural examination (Z01.818) Active confirmed Problem Family History of Cancer of Colon (Situation) ([id number]) Family history of colon cancer (Z80.0) Active confirmed Plan Of Treatment Pending Test Test Name Order Date Pathology 06/27/2020 Future Test Test Name Order Date COLONOSCOPY 04/20/2014 COLONOSCOPY 04/05/2020 Insurance Providers Payer Name Payer Address Payer Phone Subscriber Number Group Number Insured Name Patient Relationship to Insured Coverage Start Date Coverage End Date [facility] [employer] [address] [place] [address] [id number] DANNY FLORES Self - patient is the insured Medical (General) History Medical History History ICD Code Colonoscopy 05-23-2007-hyperpl astic polyp only; had a neg colonoscopy in 2001 and in the Schizophrenia Hyperlipidemia Denies PR,DM,CVA,Lung disease,renal dise ase BPH Hypothyroidism Insomnia Neg colonoscopy in 06/2014 except for a h yperplastic polyp Surgical History Surgery Date(Month/Year)
== END 2024-09-18 15:23 | disposition home or self-care (01) ==
LOC: HO.HMCHD 14:45
PROVIDERS: PCP Internal Medicine; Visit Provider Internal Medicine
DX: Z87.438 Personal history of other diseases of male genital organs (principal); E78.00 Pure hypercholesterolemia, unspecified; E07.9 Disorder of thyroid, unspecified

== ENCOUNTER 2025-02-09 13:20 | Outpatient (AMB) | payer MEDICARE, MEDICAID, SELFPAY ==
[2025-02-09 13:28] VITALS: BP 120/64; PULSE 68; RESP 16; TEMP 36.6; O2SAT 94; BMI 35.0
--- NOTE | 2025-02-09 13:28 | A.OFFPC_ITS ---
Vital Signs 02/09/25 13:28 Height 5 ft 4.5 in Weight 207 lb 2 oz BMI 35.0 BP 120/64 Blood Pressure Location Lt brachial Position Sitting Respiration 16 Pulse 68 Pulse Source Pulse Oximeter Temp 97.8 F Temp Source Oral Pulse Oximetry (%) 94 Oxygen Delivery Method Room Air Intake Visit Reasons: MANUEL-dr moran Supervisor Nutritional Yeast Required: No Accompanied by: Sister Allergies No Known Allergies Allergy (Verified 02/09/25 13:31) Medication List - Last Reconciled 02/09/25 by Gen Steele MD finasteride 5 mg PO DAILY losartan 50 mg PO DAILY mirtazapine 30 mg PO BEDTIME simvastatin 80 mg PO BEDTIME Synthroid (levothyroxine) 137 mcg PO DAILY NS Tobacco use date assessed: 09/18/24 Dental Screening Dental Screen Date: 09/18/24 HPI HPI Comments History of Present Illness Details The patient is a 74-year-old male presenting for a follow-up visit for chronic condition management and medication review. His chronic conditions include hypertension managed with losartan 50 mg, a prostate condition managed with finasteride 5 mg, schizophrenia managed with mirtazapine 30 mg, hyperlipidemia managed with simvastatin 80 mg, and hypothyroidism managed with levothyroxine 137 mcg. [facility]. Recent lab work from September showed a hemoglobin A1c of 5.8. His last thyroid level check was in June, which was 1.41. He reports some constipation, which he associates with his medications. The patient has a history of smoking since he was young and currently exhibits shortness of breath on exertion. He has inhalers from the [facility] for his breathing. He completed a lung cancer screening in November at a [facility]. Medical History: - Hypertension - Prostate condition, likely Benign Pros tatic Hyperplasia - Schizophrenia - Hyperlipidemia - Hypothyroidism - Prediabetes, based on A1c of 5.8 - Tobacco use disorder - Emphysema/COPD Medications: - Losartan 50 mg for hypertension - Finasteride 5 mg for prostate - Mirtazapine 30 mg for schizophrenia - Simvastatin 80 mg for cholesterol - Levothyroxine (Synthroid) 137 mcg for thyroid - Inhalers (unspecified) Diagnostic Results: - Labs: Hemoglobin A1c was 5.8 in September. - Labs: Thyroid level was 1.41 in June. - Tests and Diagnostics: A lung cancer s creening was performed in November. Social History: - Substance Use: The patient is a curren t smoker and started at a young age. 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 - Functional Status: The patient has thai rtness of breath with minimal exertion. [facility] Medical History (Updated 02/09/25 @ 14:02 by Gen Steele MD) Tobacco use disorder, continuous Schizophrenia Hypothyroidism BPH (benign prostatic hyperplasia) Hyperlipidemia Hx of schizophrenia History of BPH Elevated cholesterol HTN (hypertension) Thyroid disease Surgical History H/O colonoscopy (~06/27/20) Family History Father Colon cancer Mother Stroke Social History Housing: House Alcohol intake: never Patient Tobacco Use Status: Current everyday Tobacco user Cigarettes Per Day: 3 e-Cigarette/Vaping Use: Currently Using service: No Current occupational status: retired Cognitive needs: No Hearing needs: No Vision needs: No Questionnaire Thrive Questionnaire Date Thrive assessed: 09/18/24 RICHY-7 AMB Questionnaire RICHY-7 Date RICHY - 7 assessed: 09/18/24 Source: Developed by Drs. Shravan Pfeiffer, Areli Arroyo, Julian Crystal and colleagues, with an educational heraclio from [employer]. Review of Systems Narrative - General: Reports feeling good. - Denies nausea and vomiting. - Cardiovascular: Denies chest pain or palpitations. - Respiratory: Reports shortness of breath. - Gastrointestinal: Reports some constipation. - Denies diarrhea. - Neurological: Denies headaches. - Ophthalmologic: Denies vision changes. All systems reviewed & are unremarkable except as reviewed in HPI and above Physical exam (Primary Care) BMI result Body Mass Index 35.0 Tobacco/Smoking Status: Tobacco use Status Tobacco use date assessed 09/18/24 02/09/25 13:29 Patient Tobacco Use Status Current everyday Tobacco 02/09/25 13:29 e-Cigarette/Vaping Use Currently Using 02/09/25 13:29 Are you ready to quit: Yes Tobacco cessation counseling provided: Yes Relapse Prevention: discussed the importance of a supportive environment, discussed extending NRT, weight gain after smoking is common and discussed dietary, exercise and/or lifestyle changes Number of minutes spent counselin CPT code: 41974 - 4-10 Minutes Thrive Assessment: Date of Thrive Assessment Date Thrive assessed 09/18/24 02/09/25 13:29 Narrative General: +Alert and oriented, Well nourished, No acute distress. Eye: Pupils are equal, round and reactive to light, Intact accommodation, Extraocular movements are intact, Normal conjunctiva, Vision unchanged. HENT: Normocephalic, Atraumatic, Tympanic membranes are clear, Normal hearing, Oral mucosa is moist, No pharyngeal erythema, Ear canals patent. Respiratory: Lungs CTA bilaterally, No wheeze, Respirations are non-labored, Shortness of breath noted. Cardiovascular: Regular rate, Regular rhythm, S1 auscultated, S2 auscultated, No murmur, Good pulses equal in all extremities, Normal peripheral perfusion, No edema. Gastrointestinal: Soft, Non-tender, Non-distended, Normal bowel sounds, No organomegaly, Constipation noted. Musculoskeletal: Normal range of motion, Normal strength, No tenderness, No swelling, No deformity, Normal gait. Integumentary: Warm, Dry, [place], Intact. Neurologic: Alert, Oriented, Normal sensory, Normal motor function, No focal defects, Cranial Nerves II-XII are grossly intact, Normal deep tendon reflexes. Psychiatric: Cooperative, Appropriate mood & affect, Normal judgment. Coding Level of Care Code Est Pt Level 4 (37260) Complex EM visit Add On G2211 Diagnoses Primary hypertension I10 Hypertension type: primary hypertension Other hyperlipidemia E78.49 Hyperlipidemia type: other hyperlipidemia Benign prostatic hyperplasia without lower urinary tract symptoms N40.0 Lower urinary tract symptom presence: symptoms absent Acquired hypothyroidism E03.9 Hypothyroidism type: acquired Schizophrenia, unspecified type F20.9 Schizophrenia type: unspecified Tobacco use disorder, continuous F17.209 Additional Codes Vital Signs *Quality* - CPT code: 30749 - 4-10 Minutes ([id number]) Assessment & Plan Assessment & Plan (1) HTN (hypertension): Comment: - Current medications losartan 50 mg daily with pressures within acceptable limits similar to prior at 120/64. Code(s): I10 - Essential (primary) hypertension Category: Medical Qualifiers: Hypertension type: primary hypertension Qualified Code(s): I10 - Essential (primary) hypertension (2) Hyperlipidemia: Comment: - Last LDL at 67 in September of this year and currently managed on simvastatin 80 mg - We will repeat lipid panel in 6 months and make changes to either atorvastatin or decreased dose. Code(s): E78.5 - Hyperlipidemia, unspecified Category: Medical Qualifiers: Hyperlipidemia type: other hyperlipidemia Qualified Code(s): E78.49 - Other hyperlipidemia (3) BPH (benign prostatic hyperplasia): Comment: - Currently being managed with finasteride 5mg Daily - No active symptoms Code(s): N40.0 - Benign prostatic hyperplasia without lower urinary tract symptoms Category: Medical Qualifiers: Lower urinary tract symptom presence: symptoms absent Qualified Code(s): N40.0 - Benign prostatic hyperplasia without lower urinary tract symptoms (4) Hypothyroidism: Comment: - The patient is on Synthroid 137 mcg. - His last thyroid lab was in June, and he currently reports constipation, which can be a symptom of undertreatment. - Plan to order a blood test today to check thyroid function. Code(s): E03.9 - Hypothyroidism, unspecified Category: Medical Qualifiers: Hypothyroidism type: acquired Qualified Code(s): E03.9 - Hypothyro idism, unspecified (5) Schizophrenia: Comment: - Currently being managed on mirtazapine 30 mg q.h.s. and does have some associated weight gain. - This currently following the [facility] with psychiatry. Code(s): F20.9 - Schizophrenia, unspecified Category: Medical Qualifiers: Schizophrenia type: unspecified Qualified Code(s): F20.9 - Schizophrenia, unspecified Plan: Health Maintenance: - Lung Cancer Screening: Patient reports he had a screening performed in November at the [facility]. - Smoking Cessation: Patient was strongly counseled to quit smoking and was prescribed nicotine patches to aid in cessation. - Lab Monitoring: Ordered a blood test to check thyroid function. - Follow-up: Patient will return in six months for an annual physical exam. Patient was informed and verbally consented to the use of an ambient scribe for clinic note documentation during this visit. (6) Tobacco use disorder, continuous: Comment: - The patient was strongly counseled on the importance of smoking cessation to reduce risks of cancer and improve his shortness of breath, which is likely due to COPD/emphysema. - Nicotine patches will be prescribed to assist with his attempt to quit. - He reports already being on inhalers from the [facility], so no new respiratory medications were added. Code(s): F17.209 - Nicotine dependence, unspecified, with unspecified nicotine-induced disorders Category: Medical Plan I reviewed the patient's current medications, including losartan, finasteride, mirtazapine, simvastatin, and Synthroid. I noted that his last thyroid check was in June and ordered a new blood test today to assess his levels, especially given his symptom of constipation. I had a detailed discussion with the patient about his long-standing smoking habit and observed shortness of breath, explaining that this is likely from emphysema or COPD. I strongly urged him to quit, highlighting the risk of cancers. To support this, I have prescribed nicotine patches and set an expectation that he will have stopped smoking by our next visit. We agreed that he will follow up in six months for his annual physical exam. Orders: Orders TSH reflex Free T4 Today E03.9 - Hypothyroidism, unspecified Comprehensive Met. Panel 6 Months Z00.00 - Encounter for general adult medical examination without abnormal findings Hemoglobin A1c 6 Months Z00.00 - Encounter for general adult medical examination without abnormal findings Hepatitis A,B,C Profile 6 Months Z00.00 - Encounter for general adult medical examination without abnormal findings Lipid Panel 6 Months Z00.00 - Encounter for general adult medical examination without abnormal findings TSH reflex Free T4 6 Months Z00.00 - Encounter for general adult medical examination without abnormal findings Vitamin D 25-OH Total 6 Months Z00.00 - Encounter for general adult medical examination without abnormal findings Complete Blood Count Auto Diff 6 Months Z00.00 - Encounter for general adult medical examination without abnormal findings HIV Ab/Ag 6 Months Z00.00 - Encounter for general adult medical examination without abnormal findings Syphilis Screen 6 Months Z00.00 - Encounter for general adult medical examination without abnormal findings Medications: New nicotine 1 patch transdermal DAILY 28 ea 5RF Patient Instructions: - Please go for your blood test today to check your thyroid levels. - Continue taking all your current medications as prescribed for your blood pressure, prostate, schizophrenia, cholesterol, and thyroid. - It is very important that you stop smoking. - Please use the nicotine patches that have been sent to your pharmacy to help you quit. - Come back to the clinic in six months for your yearly physical check-up.
== END 2025-02-09 13:54 | disposition home or self-care (01) ==
LOC: HO.HMCHD 13:20
PROVIDERS: PCP Student in an Organized Health Care Education/Training Program; Visit Provider Student in an Organized Health Care Education/Training Program
DX: I10 Essential (primary) hypertension (principal); E78.49 Other hyperlipidemia; N40.0 Benign prostatic hyperplasia without lower urinary tract symptoms; E03.9 Hypothyroidism, unspecified; F20.9 Schizophrenia, unspecified; F17.209 Nicotine dependence, unspecified, with unspecified nicotine-induced disorders

== ENCOUNTER 2025-02-09 13:20 | Outpatient (REF) | payer MEDICARE, MEDICAID, SELFPAY ==
--- OUTSIDE RECORDS SUMMARY | 2025-02-09 18:32 | XMS_ITS | Patient Health Record ---
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 Name Role Phone RADHIKA COTTER Primary Care Provider Unavailabl e Shravan Isaac Unavailable [phone] Lyla Campos MD Unavailable Unavailable Reason For Referral Referring Provider First Name Imelda Referring Provider Last Name Jarek Referred Organization [facility] Referred Provider Shravan Isaac Referred Address [address],[place], [place],[address], Referred Provider Specialty Gastroentero logy Referral Priority Routine Medications Medication SIG (Take, Route, Frequency, Duration) [...] colonoscopy, and a full bottle the day before; Duration: 1 day 04/05/2020 Active Dulcolax (colon prep) 5 MG 2 Orally Take 2 tabs 2 days before the colonoscopy and take two tablets twice a day the day before the colonoscopy; Duration: 2 days 04/05/2020 Active Immunizations Vaccine Route [...] Problem Screening for malignant neoplasm of colon ([id number]) Encounter for screening for malignant neoplasm of colon (Z12.11) Active confirmed Problem Preprocedural examination ([id number]) Preprocedural examination (Z01.818) Active confirmed Problem Family History of Cancer of Colon (Situation) (291089095) Family history of colon cancer (Z80.0) Active confirmed Plan Of Treatment Pending Test Test Name Order Date Pathology 06/27/2020 Future Test Test Name Order Date COLONOSCOPY 04/20/2014 COLONOSCOPY 04/05/2020 Next Appt Details Provider Name:Shravan Isaac , 04/27/2025 02:40:00 PM, [address] [place] [address], [address], [place], [address], Insurance Providers Payer Name Payer Address Payer Phone Subscriber Number Group Number Insured Name Patient Relationship to Insured Coverage Start Date Coverage End Date [facility] [employer] [address] [place] [address] [id number] DANNY FLORES Self - patient is the insured Medical (General) History Medical History History ICD Code Colonoscopy 05-23-2007-hyperpl astic polyp only; had a neg colonoscopy in 2001 and in the Schizophrenia Hyperlipidemia Denies SC,DM,CVA,Lung disease,renal dise ase BPH Hypothyroidism Insomnia Neg colonoscopy in 06/2014 except for a h yperplastic polyp Surgical History Surgery Date(Month/Year)
== END 2025-02-09 13:21 | disposition home or self-care (01) ==
LOC: HO.LAB 13:20
PROVIDERS: PCP Internal Medicine; Visit Provider Student in an Organized Health Care Education/Training Program
DX: I10 Essential (primary) hypertension (principal); E03.9 Hypothyroidism, unspecified; F17.210 Nicotine dependence, cigarettes, uncomplicated; F20.9 Schizophrenia, unspecified; E78.49 Other hyperlipidemia; N40.0 Benign prostatic hyperplasia without lower urinary tract symptoms; Z79.899 Other long term (current) drug therapy
CPT/HCPCS: 36415; 84443; 99212